=== PATIENT | male | born 1955 | race Caucasian/White ===

== ENCOUNTER 2021-12-10 12:51 | Inpatient (IN) | payer OTHER ==
[~2021-12-10] VITALS: Ht 185.4 cm; Wt 68.1 kg
[2021-12-10] MEDS ORDERED: ONDANSETRON 4 MG/2 ML (SDV) Z0FRAN IV PRN ×2 (13:00→19:00)
[2021-12-10] MEDS ORDERED: CALCIUM CARBONATE 500 MG (TUMS) TAB.CHEW PO PRN (13:00)
[2021-12-10] MEDS ORDERED: ACETAMINOPHEN 325 MG TABLET PO PRN (13:00)
[2021-12-10] MEDS ORDERED: ENOXAPARIN 150 MG/ML (LOVENOX) SYR SQ SCH (13:00)
[2021-12-10] MEDS ORDERED: MELATONIN 3 MG TABLET PO PRN (13:00)
[2021-12-10] MEDS ORDERED: dilTIAZem DRIP PRE-MIX 125 ML IV SCH (13:00)
[2021-12-10 14:49] LABS: HEMOGLOBIN 15.1 g/dL (13.3-17.7); MEAN PLATELET VOLUME 11.8 fL (9.0-12.2); WHITE BLOOD COUNT 8.3 10^3/uL (4.3-11.0)
[2021-12-10 14:58] LABS: POTASSIUM 4.9 MMOL/L (3.6-5.0)
[2021-12-10 14:59] LABS: CALCIUM 9.2 MG/DL (8.5-10.1)
[2021-12-10 15:03] LABS: CREATININE SERUM 0.9 MG/DL (0.60-1.30)
[2021-12-10] MEDS ORDERED: NS IV 500 ML 500 ML IV PRN (15:15)
--- NOTE | 2021-12-10 15:24 | Consultation-Cardiology ---
HPI-Cardiology Cardiology Consultation: Date of Consultation 12/10/21 Date of Admission 12/10/21 Attending Physician Admitting Physician Admitting Physician: Vero William MD Attending Physician: Vero William MD Consulting Physician ZARI BARROW JR, MD HPI: Time Seen by a Provider: 15:19 Chief Complaint: REASON FOR CONSULTATION: Atrial fibrillation and heart failure. I had the pleasure of seeing Oswaldo in the intensive care unit at [facility] in [place], [place] this afternoon. He has no known history of cardiac disease but has not seen a doctor in over 4 years. About 3 weeks ago he started developing shortness of breath and chest tightness. He thought that he might have COVID. He did a COVID test at home that was negative. He has been treating himself with herbal remedies. However, his shortness of breath has progressed and he also started developing chest tightness. This got to the point that he could not go to work. He was also having extreme fatigue. He spoke to a friend in [place] who is a dentist and the dentist prescribed what sounds like was a steroid taper which the patient started a few days ago. However, then he started developing lower extremity edema so he stopped the medication yesterday. He has also had paroxysmal nocturnal dyspnea and orthopnea. This morning he got up to use the bathroom and was so weak that he collapsed on the floor. He was too weak to get up off the floor and was crawling around in his house. He crawled outside to get some fresh air and a short while later went back into his house and called his dentist friend who then called some of his family went to his house and brought him to the emergency room at [facility]. He was found to be in atrial fibrillation with a rapid ventricular rate and probable heart failure. He was treated with intravenous diltiazem as well as intravenous furosemide and then transferred to our facility for further treatment and evaluation. When his ch est tightness was at its worst earlier today, he states it was 10/10. Here in our hospital after receiving the Lasix, his chest discomfort is about 4/10. He denies palpitations. He denies lightheadedness or syncope. Since stopping the unknown medication yesterday, his peripheral edema has started to improve but not completely resolved. He has also had a cough and has been taking Mucinex but cannot really seem to raise any sputum. He drinks 2 rum and Cokes daily but also has a glass of wine in the morning and sometimes will drink beer at work. He smokes 2 marijuana cigarettes daily. He does not smoke regular cigarettes. Because of the heart failure and atrial fibrillation, a cardiology consultation was requested. Certain portions of this document may have been dictated utilizing voice recognition technology. Inherent to this technology, typographical and grammatical errors may exist. As much as I am diligent to identify and correct these mistakes, some errors may remain in the document. Review of Systems-Cardiology Review of Systems Other comments Review of 10 organ systems is as per the history of present illness, otherwise negative. OML-Xilbfp-Hyfhtz Hx Patient Social History Smoking Status: Current Everyday Smoker Alcohol Use?: Yes Substance type: Marijuana Past Medical History PMH As described under Assessment. Family Medical History Family Medical History: He reports that both his father and mother had myocardial infarction's but in their 60s. He has an older brother who has coronary stents. Allergies and Home Medications Allergies Coded Allergies: No Allergy Information Available (Unverified , 12/10/21) Patient Home Medication List Home Medication List Reviewed: Yes Exam Vital Signs Vital Signs Date Time Temp Pulse Resp B/P (MAP) Pulse Ox O2 Delivery O2 Flow Rate FiO2 12/10/21 14:30 73 Physical Exam General: Alert. No acute distress. Well nourished and appears stated age. Eye: Extraocular movements are intact. Conjunctivae are clear. There are no xanthelasma. HENT: Normocephalic. Atraumatic. Carotid pulsations 2/2 without bruits. Neck: Jugular venous pressure does not appear elevated. No thyromegaly appreciated. Respiratory: Lungs have decreased breath sounds at the bases bilaterally with some scattered wheezes. Respirations are non-labored. Breath sounds are equal. Symmetrical chest wall expansion. Cardiovascular: Normal rate. Irregular rhythm. Distant S1/S2. No murmur. No gallop. Point of maximal impulse is not appear displaced. Good pulses equal in all extremities. 1+ bilateral peripheral edema mainly confined to ankles and feet. Gastrointestinal: Soft. Normal bowel sounds. Skin: Skin turgor is normal. There is no pallor. Musculoskeletal: No kyphosis or scoliosis appreciated. Neurologic: Alert and oriented to person, place, time. Cranial nerves 3-12 appear grossly intact. The patient has good motor tone strength in the upper and lower extremities bilaterally. Psychiatric: Cooperative. Appropriate mood & affect. Labs Laboratory Tests Test 12/10/21 14:45 Range/Units White Blood Count 8.3 4.3-11.0 10^3/uL Red Blood Count 4.81 4.30-5.52 10^6/uL Hemoglobin 15.1 13.3-17.7 g/dL Hematocrit 45 40-54 % Mean Corpuscular Volume 94 80-99 fL Mean Corpuscular Hemoglobin 31 25-34 pg Mean Corpuscular Hemoglobin Concent 33 32-36 g/dL Red Cell Distribution Width 15.0 H 10.0-14.5 % Platelet Count 136 130-400 10^3/uL Mean Platelet Volume 11.8 9.0-12.2 fL Percent Immature Platelet Fraction 9.6 H 0.0-7.6 % Sodium Level 131 L 135-145 MMOL/L Potassium Level 4.9 3.6-5.0 MMOL/L Chloride Level 98 98-107 MMOL/L Carbon Dioxide Level 20 L 21-32 MMOL/L Anion Gap 13 5-14 MMOL/L Blood Urea Nitrogen 27 H 7-18 MG/DL Creatinine 0.90 0.60-1.30 MG/DL Estimat Glomerular Filtration Rate 94 BUN/Creatinine Ratio 30 Glucose Level 124 H 70-105 MG/DL Calcium Level 9.2 8.5-10.1 MG/DL Troponin I 0.070 H <0.028 NG/ML Radiology CT angiogram of the chest obtained at [facility] was read out by the radiologist as no pulmonary emboli. Atherosclerotic changes of the aorta and coronary arteries. Mild thoracic aortic aneurysm measuring 4.2 cm. Low-grade centrilobular and paraseptal emphysema. Minimal interstitial pulmonary edema. Moderate to large right and mild left pleural effusions. Cardiomegaly. ECG Impression ECG Comment Electrocardiogram from [facility] at 11: Oh 3 AM showed atrial fibrillation with a rapid ventricular rate at 155 bpm with low voltage in the limb leads, possible old anterior infarct and anterolateral ST-T wave changes concerning for ischemia. Diagnosis/Problems Diagnosis/Problems (1) Acute congestive heart failure Status: Acute Assessment & Plan: He has an elevated BNP level as well as bilateral pleural effusions and evidence of pulmonary edema on his chest CT from the outside facility. He also has symptoms compatible with heart failure. His ejection fraction is unknown. He has already received 1 dose of intravenous furosemide at the outside facility. I will start him on intravenous furosemide 40 mg twice daily. We will need to watch his renal function closely. For now, I will start him on metoprolol tartrate to help control his heart rate. I will plan on an echocardiogram first thing Sunday morning. There is no urgent need to do this on the weekend. If he tolerates metoprolol, I will consider starting him on DON inhibitor within the next 24-48 hours. (2) Paroxysmal atrial fibrillation Assessment & Plan: He has atrial fibrillation of unknown duration. His heart rate improved with diltiazem. I will start him on oral beta-mike and we will attempt to titrate off the intravenous diltiazem. I have ordered for him to continue on enoxaparin 1 mg/kg every 12 hours. I would like to hold off on starting oral anticoagulation until we determine whether or not he might need a cardiac catheterization. (3) Troponin level elevated Assessment & Plan: His troponin was slightly elevated at the outside facility and is also minimally elevated here. Unclear whether or not he may be suffering a type II non-ST elevation myocardial infarction due to the atrial fibrillation with a rapid ventricular rate. I have ordered another troponin level for 1799. I recommend we trend the troponins until they start declining. If he has a significant jump in his troponin, we may need to consider cardiac catheterization on the weekend. I will start him on aspirin and I have already ordered beta-mike. His transaminase levels are mildly elevated. I will hold off on starting statin medication until we see that the transaminase levels are improving. I have added a lipid panel to his admission labs. (4) Abnormal electrocardiogram Assessment & Plan: His electrocardiogram shows a possible anterior myocardial infarction of indeterminate age with some lateral T wave changes. We will trend the troponins as above. I have ordered an echocardiogram for Sunday. He will eventually need an ischemic evaluation, either a stress test or cardiac catheterization. (5) Thoracic aortic aneurysm without rupture Assessment & Plan: His chest CT from the outside facility showed a mild thoracic aortic aneurysm. This will need to be followed longitudinally. (6) Emphysema lung Assessment & Plan: His chest CT from the outside facility shows mild emphysema. This may be explaining at least some of his shortness of breath. The hospitalist will be managing this condition. He needs to be encouraged to quit smoking. (7) Alcohol dependence Assessment & Plan: From his description, he has anywhere from 2-4 alcoholic drinks per day. He denies any previous history of withdrawal symptoms. He will need to be watched closely for any signs of withdrawal. (8) Marijuana smoker Assessment & Plan: She needs to be encouraged to quit smoking. ZARI BARROW JR, MD Dec 10, 2021 15:24
[2021-12-10] MEDS ORDERED: meTOprolol TARTRATE 25 MG (LOPRESSOR) TABLET PO NR (15:30)
[2021-12-10] MEDS ORDERED: ENOXAPARIN 80 MG/0.8 ML (LOVENOX) SYR SC SCH (15:30)
[2021-12-10 15:51] LABS: TRIGLYCERIDES 73 MG/DL (<150); VLDL CHOLESTEROL 15 MG/DL (5-40)
[2021-12-10 15:56] LABS: CHOLESTEROL 152 MG/DL (< 200)
[2021-12-10 15:57] LABS: HDL CHOLESTEROL 45 MG/DL (40-60)
--- NOTE | 2021-12-10 16:06 | Tele-ICU Consult ---
History of Present Illness History of Present Illness Date Seen by Provider: Dec 10, 2021 Time Seen by Provider: 16:01 History of Present Illness 66 yo M with progressive SOB over last 3 weeks. fatigue, chest tightness and increasing leg edema. Went to another hospital and found to be in a fib with RVR. Started on IV Cardizem and IV Laisx Seen by hospice aide who started pt on po metoprol, V rate down to 112, BP 116/89 + EtOH, MJ, PMH CT in past showed mild thoracic aortic aneurysm, also showed COPD Lab CBC Hb 15, Na 131, trop 0.070, will be repeated, CXR shows pulm edema, bilateral pleural effusions, EKG shows possible ant,lat AR of indermitate age, Allergies and Home Medications Allergies Coded Allergies: No Allergy Information Available (Unverified , 12/10/21) Past Medical/Social/Family Hx Patient Social History Smoking Status: Current Everyday Smoker Substance type: Marijuana Alcohol Use?: Yes Review of Systems Constitutional: see HPI EENTM: see HPI Respiratory: see HPI Cardiovascular: see HPI Gastrointestinal: see HPI Genitourinary: see HPI Musculoskeletal: see HPI Skin: see HPI Psychiatric/Neurological: See HPI Focused Exam Height, Weight, BMI Height: '" Weight: lbs. oz. kg; 22.66 BMI Method: Exam Exam Patient acknowledged, consented, and participated in this virtual visit which was conducted using real time audio/video Vital Signs Date Time Temp Pulse Resp B/P (MAP) Pulse Ox O2 Delivery O2 Flow Rate FiO2 12/10/21 15:21 112 116/89 12/10/21 15:10 23 95 Nasal Cannula 3.00 12/10/21 15:00 91 11 133/93 (106) 88 Nasal Cannula 3.00 12/10/21 14:30 75 12 107/91 (96) 94 Nasal Cannula 3.00 12/10/21 14:30 73 12/10/21 14:25 36.7 84 9 104/74 (84) Nasal Cannula 3.00 Height & Weight Height: '" Weight: lbs. oz. kg; 22.66 BMI Method: General Appearance: No Apparent Distress Respiratory: Lungs Clear, Wheezing Cardiovascular: Irregularly Irregular, Tachycardia Gastrointestinal: normal bowel sounds, non tender, soft Extremity: Pedal Edema (+3 pitting) Results Lab Laboratory Tests 12/10/21 14:45 Assessment/Plan Assessment/Plan new onset a fib with V rate 80's, will repeat troponin, follow up by hospice aide WIth Hb 15 and new onset of a fib, would always consider possibility of XU Critical Care: Critically Ill Patient EVAN BUSTAMANTE MD Dec 10, 2021 16:06
[2021-12-10] MEDS: FUROSEMIDE 40 MG/4 ML INJ (LASIX) IVP SCH (16:08)
[2021-12-10 16:39] VITALS: BP 96/81
[2021-12-10] MEDS ORDERED: RT-ALBUTEROL/IPRATROPIUM 3 ML (DUONEB) VIAL INH PRN (17:00)
[2021-12-10] MEDS ORDERED: CHOL10007 PO (18:33)
[2021-12-10] MEDS ORDERED: [UNRECOGNIZED DRUG - OTHER] PO (18:35)
[2021-12-10] MEDS ORDERED: [UNRECOGNIZED DRUG - OTHER] PO (18:36)
[2021-12-10] MEDS ORDERED: SENNA W/DOCUSATE (SENOKOT S) TABLET PO PRN (19:00)
[2021-12-10] MEDS ORDERED: ONDANSETRON 4 MG (ZOFRAN) ORAL DISSOLVE TAB SL PRN (19:00)
[2021-12-10] MEDS ORDERED: LORazepam INJ 2 MG/ML (ATIVAN) VIAL IV PRN (19:00)
[2021-12-10] MEDS ORDERED: ANTACID SUSP 30 ML UDC (MYLANTA) PO PRN (19:00)
[2021-12-10] MEDS ORDERED: LORazepam INJ 2 MG/ML (ATIVAN) VIAL IM/IV PRN (19:00)
[2021-12-10] MEDS ORDERED: D5 1/2 NS 1000 ML IV SOLUTION 1,000 ML IV PRN (19:00)
[2021-12-10] MEDS ORDERED: 1/2 NS IV SOLUTION 1,000 ML IV PRN (19:00)
[2021-12-10] MEDS ORDERED: LORazepam 1 MG (ATIVAN) TAB PO PRN (19:00)
[2021-12-10] MEDS: RT-ALBUTEROL/IPRATROPIUM 3 ML (DUONEB) VIAL INH SCH (19:13)
[2021-12-10] MEDS: guaiFENesin (MUCINEX) 600 MG TAB PO SCH (21:48)
[2021-12-10] MEDS: meTOprolol TARTRATE 25 MG (LOPRESSOR) TABLET PO SCH (21:49)
[2021-12-11] MEDS: ENOXAPARIN 80 MG/0.8 ML (LOVENOX) SYR SC SCH ×2 (00:40→12:31)
[2021-12-11] MEDS: RT-ALBUTEROL/IPRATROPIUM 3 ML (DUONEB) VIAL INH SCH ×4 (02:21→20:58)
[2021-12-11 05:35] LABS: HEMOGLOBIN 13.7 g/dL (13.3-17.7); MEAN PLATELET VOLUME 11.5 fL (9.0-12.2)
[2021-12-11 05:36] LABS: WHITE BLOOD COUNT 8.9 10^3/uL (4.3-11.0)
[2021-12-11 05:54] LABS: ALBUMIN 3.2 GM/DL (3.2-4.5); BILIRUBIN,TOTAL 0.8 MG/DL (0.1-1.0); CALCIUM 8.5 MG/DL (8.5-10.1); CREATININE SERUM 0.86 MG/DL (0.60-1.30); MAGNESIUM 2.1 MG/DL (1.6-2.4); PHOSPHORUS 3.3 MG/DL (2.3-4.7); POTASSIUM 3.7 MMOL/L (3.6-5.0); TOTAL PROTEIN 5.3 GM/DL (6.4-8.2)
[2021-12-11] MEDS: POTASSIUM CL 10MEQ/50ML IVPB 50 ML IV SCH (06:00)
[2021-12-11] MEDS: KCL 20 MEQ TAB (K-DUR) PO SCH (06:00)
[2021-12-11] MEDS: MAGNESIUM 1 GM/100 ML IVPB 100 ML IV SCH (06:00)
[2021-12-11] MEDS: FUROSEMIDE 40 MG/4 ML INJ (LASIX) IVP SCH ×2 (06:31→17:34)
[2021-12-11] MEDS: guaiFENesin (MUCINEX) 600 MG TAB PO SCH (08:35)
[2021-12-11] MEDS: ASPIRIN E.C. 81 MG (ECOTRIN) TAB PO SCH (08:35)
[2021-12-11] MEDS: meTOprolol TARTRATE 25 MG (LOPRESSOR) TABLET PO SCH ×2 (08:35→21:08)
[2021-12-11] MEDS ORDERED: CATHETER FLUSH 10 ML SYR IV PRN (09:30)
[2021-12-11] MEDS ORDERED: meTOprolol TARTRATE 25 MG (LOPRESSOR) TABLET PO NR (09:30)
--- NOTE | 2021-12-11 09:37 | Cardiology Progress Note ---
Progress Note-Cardiology Events since last exam Date Seen by Provider: Dec 11, 2021 Time Seen by Provider: 09:32 Events since last exam I am following him due to atrial fibrillation and heart failure of unknown type. Last night he woke up to urinate and had a panic attack and became very short of breath. He went back to sleep later and was able to lie flat. His breathing has improved. His chest tightness has resolved. He denies palpitations, syncope, or ankle edema. Certain portions of this document may have been dictated utilizing voice recognition technology. Inherent to this technology, typographical and grammatical errors may exist. As much as I am diligent to identify and correct these mistakes, some errors may remain in the document. Vitals Last set of Vitals Signs Vital Signs 12/10/21 12/11/21 12/11/21 16:39 08:00 08:38 Temp 36.2 Pulse 130 Resp 19 Pulse Ox 93 O2 Delivery Nasal Cannula O2 Flow Rate 2.00 FiO2 32 Labs Labs Laboratory Tests 12/10/21 14:45 12/11/21 05:19 Exam Vital Signs Vital Signs Date Time Temp Pulse Resp B/P (MAP) Pulse Ox O2 Delivery O2 Flow Rate FiO2 12/11/21 08:38 36.2 12/11/21 08:00 130 19 93 Nasal Cannula 2.00 12/10/21 16:39 32 Physical Exam General: Alert. No acute distress. He appears older than his stated age. Eye: No xanthelasma. HENT: Normocephalic. Neck: Jugular venous pressure does not appear elevated. Respiratory: Lungs are clear to auscultation. Respirations are non-labored. Breath sounds are equal. Symmetrical chest wall expansion. Cardiovascular: Tachycardia with irregular rhythm. Distant S1/S2. No murmur. No gallop. No edema. Gastrointestinal: Soft. Normal bowel sounds. Skin: Warm. Dry. Neurologic: Alert and oriented to person, place, time. Cranial nerves 3-11 grossly intact. Psychiatric: Cooperative. Appropriate mood & affect. Labs Laboratory Tests Test 12/10/21 14:45 12/10/21 15:42 12/10/21 15:43 12/10/21 18:01 Range/Units White Blood Count 8.3 4.3-11.0 10^3/uL Red Blood Count 4.81 4.30-5.52 10^6/uL Hemoglobin 15.1 13.3-17.7 g/dL Hematocrit 45 40-54 % Mean Corpuscular Volume 94 80-99 fL Mean Corpuscular Hemoglobin 31 25-34 pg Mean Corpuscular Hemoglobin Concent 33 32-36 g/dL Red Cell Distribution Width 15.0 H 10.0-14.5 % Platelet Count 136 130-400 10^3/uL Mean Platelet Volume 11.8 9.0-12.2 fL Percent Immature Platelet Fraction 9.6 H 0.0-7.6 % Sodium Level 131 L 135-145 MMOL/L Potassium Level 4.9 3.6-5.0 MMOL/L Chloride Level 98 98-107 MMOL/L Carbon Dioxide Level 20 L 21-32 MMOL/L Anion Gap 13 5-14 MMOL/L Blood Urea Nitrogen 27 H 7-18 MG/DL Creatinine 0.90 0.60-1.30 MG/DL Estimat Glomerular Filtration Rate 94 BUN/Creatinine Ratio 30 Glucose Level 124 H 70-105 MG/DL Calcium Level 9.2 8.5-10.1 MG/DL Troponin I 0.070 H 0.077 H <0.028 NG/ML Triglycerides Level 73 <150 MG/DL Cholesterol Level 152 < 200 MG/DL LDL Cholesterol Direct 89 1-129 MG/DL VLDL Cholesterol 15 5-40 MG/DL HDL Cholesterol 45 40-60 MG/DL Test 12/11/21 05:19 Range/Units White Blood Count 8.9 4.3-11.0 10^3/uL Red Blood Count 4.33 4.30-5.52 10^6/uL Hemoglobin 13.7 13.3-17.7 g/dL Hematocrit 40 40-54 % Mean Corpuscular Volume 92 80-99 fL Mean Corpuscular Hemoglobin 32 25-34 pg Mean Corpuscular Hemoglobin Concent 34 32-36 g/dL Red Cell Distribution Width 14.6 H 10.0-14.5 % Platelet Count 116 L 130-400 10^3/uL Mean Platelet Volume 11.5 9.0-12.2 fL Percent Immature Platelet Fraction 7.7 H 0.0-7.6 % Sodium Level 133 L 135-145 MMOL/L Potassium Level 3.7 3.6-5.0 MMOL/L Chloride Level 99 98-107 MMOL/L Carbon Dioxide Level 22 21-32 MMOL/L Anion Gap 12 5-14 MMOL/L Blood Urea Nitrogen 26 H 7-18 MG/DL Creatinine 0.86 0.60-1.30 MG/DL Estimat Glomerular Filtration Rate 95 BUN/Creatinine Ratio 30 Glucose Level 84 70-105 MG/DL Calcium Level 8.5 8.5-10.1 MG/DL Corrected Calcium 9.1 8.5-10.1 MG/DL Phosphorus Level 3.3 2.3-4.7 MG/DL Magnesium Level 2.1 1.6-2.4 MG/DL Total Bilirubin 0.8 0.1-1.0 MG/DL Aspartate Amino Transf (AST/SGOT) 63 H 5-34 U/L Alanine Aminotransferase (ALT/SGPT) 79 H 0-55 U/L Alkaline Phosphatase 48 40-136 U/L Total Protein 5.3 L 6.4-8.2 GM/DL Albumin 3.2 3.2-4.5 GM/DL Diagnosis/Problems Diagnosis/Problems (1) Acute congestive heart failure Status: Acute Assessment & Plan: He has an elevated BNP level as well as bilateral pleural effusions and evidence of pulmonary edema on his chest CT from the outside facility. He also has symptoms compatible with heart failure. His ejection fraction is unknown. He is on intravenous furosemide 40 mg twice daily. We will need to watch his renal function closely. I started him on metoprolol tartrate and his intravenous diltiazem was weaned off. He still has tachycardia. I will give him an extra dose of metoprolol this morning. We may need to increase the dose but his blood pressure is somewhat on the low side. I would avoid giving him digoxin. I will plan on an echocardiogram first thing Sunday morning. There is no urgent need to do this on the weekend. If he tolerates metoprolol, I will consider starting him on DON inhibitor within the next 24-48 hours. (2) Troponin level elevated Assessment & Plan: His troponin levels have been elevated but flat. This may be due to a type II non-ST elevation myocardial infarction due to the atrial fibrillation with a rapid ventricular rate. He is receiving therapeutic dosing of enoxaparin. I started him on aspirin and beta-mike. His transaminase levels are mildly elevated. I will hold off on starting statin medication until we see that the transaminase levels are improving. His LDL level is actually below 100. I recommend further evaluation with a cardiac catheterization. I will plan to do this first thing tomorrow morning. There is no urgency to doing this today. (3) Paroxysmal atrial fibrillation Assessment & Plan: He has atrial fibrillation of unknown duration. His heart rates had initially improved with low-dose metoprolol to tartrate but are elevated today. Some of this could be related to withdrawal from alcohol. I will give him an extra dose of metoprolol this morning. I have ordered for him to continue on enoxaparin 1 mg/kg every 12 hours. I would like to hold off on starting oral anticoagulation until after cardiac catheterization. (4) Abnormal electrocardiogram Assessment & Plan: His electrocardiogram shows a possible anterior myocardial infarction of indeterminate age with some lateral T wave changes. As above, I recommend further evaluation with a cardiac catheterization. (5) Thoracic aortic aneurysm without rupture Assessment & Plan: His chest CT from the outside facility showed a mild thoracic aortic aneurysm. This will need to be followed longitudinally. He is now on beta-mike. (6) Emphysema lung Assessment & Plan: His chest CT from the outside facility shows mild emphysema. This may be explaining at least some of his shortness of breath. The hospitalist will be managing this condition. He needs to be encouraged to quit smoking. (7) Alcohol dependence Assessment & Plan: From his description, he has anywhere from 2-4 alcoholic drinks per day. He denies any previous history of withdrawal symptoms. He will need to be watched closely for any signs of withdrawal. As above, he may have some tachycardia related to early withdrawal. (8) Marijuana smoker Assessment & Plan: She needs to be encouraged to quit smoking. ZARI BARROW JR, MD Dec 11, 2021 09:37
--- NOTE | 2021-12-11 10:35 | Diagnostic Imaging Report ---
EXAMINATION: Chest 2 view HISTORY: Pleural effusion COMPARISON: None available. FINDINGS: There are small bilateral pleural effusions. No pneumothorax. No edema or pneumonia. Heart size is normal. IMPRESSION: 1. Small bilateral pleural effusions. Dictated by: Dictated on workstation # [id number]
--- NOTE | 2021-12-11 10:50 | History & Physical ---
GUDELIA ARTIS 12/11/21 1050: History of Present Illness History of Present Illness Reason for visit/HPI CC: Shortness of breath and fatigue HPI: Oswaldo is a 66yo M with a past medical history a mild thoracic aortic aneurysm and COPD. For the past 3 weeks he has been feeling short of breath and fatigued. He has been unable to go into work or complete tasks at home because of these symptoms. At night he is unable to breathe whenever he lays down which gives him anxiety. Denies having fever, chills, and cough. His symptoms progressively worsened and he developed edema of his lower extremities. Yesterday the patient had a fall and had to crawl around his house because he wasn't strong enough to stand back up. He was taken to the [facility] where he was in atrial fibrillation with RVR. A chest X-ray showed pulmonary edema and bilateral pleural effusions. EKG showed a possible anterior/lateral AR of undetermined age. Troponin was elevated at 0.070 and Na was 131. In the ER the patient was placed on oxygen nasal cannula 3L/min and was given IV lasix and IV cardizem. Patient was admitted and transferred to [facility]. Patient was laying in bed awake at the beginning of the interview. Patient says he is feeling much better today. Says he still feels SOB and fatigued, especially when he gets up and moves around. Reports that he has been coughing up plegm. Denies chest pain and palpitations. Date of Admission Dec 10, 2021 at 14:25 I consulted on this patient on 12/11/21 10:46 Attending Physician No,Local Physician Admitting Physician Admitting Physician: Monse Howe MD Attending Physician: Monse Howe MD Consult Allergies and Home Medications Allergies Coded Allergies: No Allergy Information Available (Unverified , 12/10/21) Patient Home Medication List Cholecalciferol (Vitamin D3) (Vitamin D3) 25 Mcg (1000 Unit) Capsule, 200 MCG PO DAILY, (Reported) Entered as Reported by: GARCIA ZHOU on 12/10/211832 Last Action: Edited [Heart Drops] , PO AC, (Reported) Entered as Reported by: GARCIA ZHOU on 12/10/211835 Last Action: New Order [Orega Resp] , 2 TAB AC, (Reported) Entered as Reported by: GARCIA ZHOU on 12/10/211834 Last Action: New Order Past Rlocomr-Nhdjzu-Xwuezl Hx Patient Social History Marrital Status: single Employed/Student: employed Tobacco Use?: No Smoking Status: Never a Smoker Smokeless Tobacco Frequency: Never a User Use of E-Cig and/or Vaping dev: Yes E-Cig or Vaping type used: Marijuana Use of E-Cig and/or Vaping Giles: Current Everyday User Substance use?: Yes Substance type: Marijuana Substance frequency: Daily Alcohol Use?: Yes Alcohol type: Beer (4-8 beers throughout the day), Hard Liquor (At least two rum and cokes a day), Wine (Glass in the morning) Additional alcohol type: wine to work, beer on way home and rum and coke HS Alcohol Frequency: Daily Pt feels they are or have been: No Immunizations Up To Date Hepatitis A: No Hepatitis B: No Current Status Advance Directives: No Communicates: Verbally Primary Language: Mohawk Preferred Spoken Language: Mohawk Is interpretation needed?: No Implanted or Applied Medical D: None Past Medical History COPD Currently Using CPAP: No Currently Using BIPAP: No Aneurysm (thoracic aortic aneurysm) Review of Systems Constitutional: No chills, No dizziness, No fever; weakness EENTM: No hearing loss, No vision loss, No nose congestion, No throat pain Respiratory: cough, dyspnea on exertion, phlegm, short of breath Cardiovascular: No chest pain; edema; No palpitations Gastrointestinal: No abdominal pain, No constipation, No diarrhea, No loss of appetite, No nausea, No vomiting Genitourinary: No dysuria, No frequency Musculoskeletal: No joint pain, No joint swelling, No muscle pain Skin: No change in color, No rash Psychiatric/Neurological: Anxiety; Denies Headache, Denies Numbness Physical Exam Vital Signs Vital Signs - First Documented 12/10/21 12/10/21 12/10/21 12/10/21 14:23 14:25 14:30 16:39 Temp 36.7 Pulse 84 Resp 9 B/P (MAP) 104/74 (84) Pulse Ox 94 O2 Delivery Nasal Cannula O2 Flow Rate 2.00 FiO2 32 Capillary Refill : Height, Weight, BMI Height: '" Weight: lbs. oz. kg; 22.54 BMI Method: General Appearance: No Apparent Distress, Cachetic, Thin HEENT: Pharynx Normal, Moist Mucous Membranes Neck: Full Range of Motion, Normal Inspection, Non Tender, Supple Respiratory: Chest Non Tender, No Accessory Muscle Use, No Respiratory Distress, Wheezing Cardiovascular: No Murmur, Normal Peripheral Pulses (3+ radialis and dorsalis pedis), Irregularly Irregular Gastrointestinal: No Organomegaly, No Pulsatile Mass, Non Tender, Soft Back: Normal Inspection, No Vertebral Tenderness Extremity: Normal Capillary Refill, Normal Range of Motion, Non Tender, No Calf Tenderness, Pedal Edema (1+ pitting edema in left ankle and foot/ 3+ pitting edema in right ankle and foot) Neurologic/Psychiatric: Alert, Oriented x3, Normal Mood/Affect Skin: Normal Color, Warm/Dry Assessment/Plan Assessment and Plan Acute congestive heart failure - multiple etiologies are possible including ischemic heart disease, obstructive sleep apnea, and alcoholic cardiomyopathy - IV furosemide 40mg will be given due to continued pedal edema - PO potassium chloride 40mEq given to prevent hypokalemia from diuresis Paroxysmal atrial fibrillation - IV cardizem was switched to PO metoprolol 25mg BID - enoxaparin 80mg Q12hrs - patient continues to have some elevated HR so will continue to monitor in ICU before sending to medr floor Hyponatremia - Na has improved from yesterday - continue to give sodium chloride 1000ml @ 75mls/hr Q13 Elevated troponin - repeat troponin is elevated but stable from yesterday - Aspirin 81mg 1xD - cardiology plans on taking patient to cardiac catheterization lab tomorrow to assess for ischemic heart disease Alcohol dependence - Lorazepam 1mg PRN is available if patient begins to experience withdrawal symptoms (seizures, hallucinations, or delirium) COPD - Albuterol/Ipratropium 3ml Q6hrs - Guafenisin 600mg BID Thoracic aortic aneurysm -Will need to be monitored as an outpatient Problems: (1) Acute congestive heart failure Status: Acute Assessment & Plan: He has an elevated BNP level as well as bilateral pleural effusions and evidence of pulmonary edema on his chest CT from the outside facility. He also has symptoms compatible with heart failure. His ejection fraction is unknown. He is on intravenous furosemide 40 mg twice daily. We will need to watch his renal function closely. I started him on metoprolol tartrate and his intravenous diltiazem was weaned off. He still has tachycardia. I will give him an extra dose of metoprolol this morning. We may need to increase the dose but his blood pressure is somewhat on the low side. I would avoid giving him digoxin. I will plan on an echocardiogram first thing Sunday morning. There is no urgent need to do this on the weekend. If he tolerates metoprolol, I will consider starting him on DON inhibitor within the next 24-48 hours. (2) Troponin level elevated Assessment & Plan: His troponin levels have been elevated but flat. This may be due to a type II non-ST elevation myocardial infarction due to the atrial fibrillation with a rapid ventricular rate. He is receiving therapeutic dosing of enoxaparin. I started him on aspirin and beta-mike. His transaminase levels are mildly elevated. I will hold off on starting statin medication until we see that the transaminase levels are improving. His LDL level is actually below 100. I recommend further evaluation with a cardiac catheterization. I will plan to do this first thing tomorrow morning. There is no urgency to doing this today. (3) Paroxysmal atrial fibrillation Assessment & Plan: He has atrial fibrillation of unknown duration. His heart rates had initially improved with low-dose metoprolol to tartrate but are elevated today. Some of this could be related to withdrawal from alcohol. I will give him an extra dose of metoprolol this morning. I have ordered for him to continue on enoxaparin 1 mg/kg every 12 hours. I would like to hold off on starting oral anticoagulation until after cardiac catheterization. (4) Abnormal electrocardiogram Assessment & Plan: His electrocardiogram shows a possible anterior myocardial infarction of indeterminate age with some lateral T wave changes. As above, I recommend further evaluation with a cardiac catheterization. (5) Thoracic aortic aneurysm without rupture Assessment & Plan: His chest CT from the outside facility showed a mild thoraci c aortic aneurysm. This will need to be followed longitudinally. He is now on beta-mike. (6) Emphysema lung Assessment & Plan: His chest CT from the outside facility shows mild emphysema. This may be explaining at least some of his shortness of breath. The hospitalist will be managing this condition. He needs to be encouraged to quit smoking. (7) Alcohol dependence Assessment & Plan: From his description, he has anywhere from 2-4 alcoholic drinks per day. He denies any previous history of withdrawal symptoms. He will need to be watched closely for any signs of withdrawal. As above, he may have some tachycardia related to early withdrawal. (8) Marijuana smoker Assessment & Plan: She needs to be encouraged to quit smoking. MONSE HOWE MD 12/11/21 1125: History of Present Illness History of Present Illness Time Seen by a Provider: 10:15 Allergies and Home Medications Allergies Coded Allergies: No Allergy Information Available (Unverified , 12/10/21) Patient Home Medication List Home Medication List Reviewed: Yes Cholecalciferol (Vitamin D3) (Vitamin D3) 25 Mcg (1000 Unit) Capsule, 200 MCG PO DAILY, (Reported) Entered as Reported by: GARCIA ZHOU on 12/10/211832 Last Action: Edited [Heart Drops] , PO AC, (Reported) Entered as Reported by: GARCIA ZHOU on 12/10/211835 Last Action: New Order [Orega Resp] , 2 TAB AC, (Reported) Entered as Reported by: GARCIA ZHOU on 12/10/211834 Last Action: New Order Assessment/Plan Admission Diagnosis Admission Status: Inpatient Order (span 2 midnights) Reason for Inpatient Admission: new onset a fib, chf, need cath and IV diuresis GUDELIA ARTIS Dec 11, 2021 10:50 MONSE HOWE MD Dec 11, 2021 11:25
--- NOTE | 2021-12-11 12:11 | Tele-ICU Progress Note ---
Subjective Date Seen by a Provider: Dec 11, 2021 Time Seen by a Provider: 12:07 Subjective/Events-last exam he is resting comfortably and his HR improved with extradose of BB. now is 102/mt. no dyspnea at rest. Sepsis Event Evaluation Height, Weight, BMI Height: '" Weight: lbs. oz. kg; 22.54 BMI Method: Exam Exam Patient acknowledged, consented, and participated in this virtual visit which was conducted using real time audio/video Vital Signs Date Time Temp Pulse Resp B/P (MAP) Pulse Ox O2 Delivery O2 Flow Rate FiO2 12/11/21 12:00 97 13 102/74 (83) 96 Nasal Cannula 2.00 12/11/21 11:00 126 12 110/73 (85) 92 Nasal Cannula 2.00 12/11/21 10:00 125 17 101/83 (89) 100 Nasal Cannula 2.00 12/11/21 09:00 154 15 112/99 (103) 97 Nasal Cannula 2.00 12/11/21 08:38 36.2 12/11/21 08:05 Nasal Cannula 2.00 12/11/21 08:00 130 19 93 Nasal Cannula 2.00 12/11/21 07:16 95 Nasal Cannula 2.00 12/11/21 07:00 138 22 117/91 (100) 95 Nasal Cannula 2.00 12/11/21 07:00 114 12/11/21 06:00 93 10 130/94 (106) 94 Nasal Cannula 2.00 12/11/21 05:00 114 18 113/101 (105) 89 Nasal Cannula 2.00 12/11/21 04:00 93 Nasal Cannula 2.00 12/11/21 04:00 101 19 121/103 (109) 92 Nasal Cannula 2.00 12/11/21 03:00 96 16 120/86 (97) 95 Nasal Cannula 2.00 12/11/21 02:21 93 Nasal Cannula 2.00 12/11/21 02:00 92 11 104/87 (93) 94 Nasal Cannula 2.00 12/11/21 01:00 89 19 96/68 (77) 94 Nasal Cannula 2.00 12/11/21 00:50 81 12/11/21 00:00 94 Nasal Cannula 2.00 12/11/21 00:00 88 27 105/76 (86) 94 Nasal Cannula 2.00 12/10/21 23:00 81 17 89/72 (78) 93 Nasal Cannula 2.00 12/10/21 22:00 84 19 125/116 (119) 97 Nasal Cannula 2.00 12/10/21 21:00 73 19 101/83 (89) 94 Nasal Cannula 2.00 12/10/21 20:00 75 15 102/72 (82) 92 Nasal Cannula 2.00 12/10/21 20:00 Nasal Cannula 2.00 12/10/21 19:14 98 Nasal Cannula 2.00 12/10/21 19:00 73 12/10/21 19:00 79 21 104/76 (85) 99 Nasal Cannula 2.00 12/10/21 18:50 Nasal Cannula 2.00 12/10/21 18:00 78 21 116/104 (108) 99 Nasal Cannula 4.00 12/10/21 17:01 98 20 112/99 (103) 90 Nasal Cannula 3.00 12/10/21 16:39 85 93 32 12/10/21 16:10 85 18 96/81 (86) 93 Nasal Cannula 3.00 12/10/21 16:00 85 12 88/72 (77) 91 Nasal Cannula 3.00 12/10/21 16:00 Nasal Cannula 2.00 12/10/21 15:21 112 116/89 12/10/21 15:10 23 95 Nasal Cannula 3.00 12/10/21 15:00 91 11 133/93 (106) 88 Nasal Cannula 3.00 12/10/21 14:30 75 12 107/91 (96) 94 Nasal Cannula 3.00 12/10/21 14:30 73 12/10/21 14:25 36.7 84 9 104/74 (84) Nasal Cannula 3.00 12/10/21 14:23 Nasal Cannula 2.00 I & O 12/11/21 07:00 Intake Total 560 ml Output Total 2475 ml Balance -1915 ml Height & Weight Height: '" Weight: lbs. oz. kg; 22.54 BMI Method: General Appearance: No Apparent Distress Respiratory: Lungs Clear, Wheezing Cardiovascular: Irregularly Irregular, Tachycardia Gastrointestinal: normal bowel sounds, non tender, soft Extremity: Pedal Edema (+3 pitting) Results Lab Laboratory Tests 12/10/21 14:45 12/11/21 05:19 Assessment/Plan Assessment/Plan 1. Paroxysmal afib now rate controlled. 2.chf responding to iv lasix, cardiology following. 3.copd stable. 4. alcohol and nicotine abuse Plan. continue BB per cardiology and wean diltiazem Echo tomorrow. anticoagulation per cardiolgy Critical Care: Critically Ill Patient Time spent with patient (mins): 15 MELISSA CHAO MD Dec 11, 2021 12:11
[2021-12-11] MEDS ORDERED: dilTIAZem DRIP PRE-MIX 125 ML IV ONE (17:46)
[2021-12-11] MEDS: dilTIAZem DRIP PRE-MIX 125 ML IV SCH (17:49)
[2021-12-12] MEDS: ENOXAPARIN 80 MG/0.8 ML (LOVENOX) SYR SC SCH ×3 (00:19→20:44)
[2021-12-12] MEDS: RT-ALBUTEROL/IPRATROPIUM 3 ML (DUONEB) VIAL INH SCH ×4 (02:35→20:57)
[2021-12-12 05:13] VITALS: BP 110/79
[2021-12-12] MEDS: dilTIAZem DRIP PRE-MIX 125 ML IV SCH (05:13)
[2021-12-12 05:39] LABS: HEMOGLOBIN 13.8 g/dL (13.3-17.7); MEAN PLATELET VOLUME 11.5 fL (9.0-12.2); WHITE BLOOD COUNT 8.3 10^3/uL (4.3-11.0)
[2021-12-12 05:52] LABS: CALCIUM 8.1 MG/DL (8.5-10.1); CREATININE SERUM 0.7 MG/DL (0.60-1.30); MAGNESIUM 1.8 MG/DL (1.6-2.4); PHOSPHORUS 2.9 MG/DL (2.3-4.7); POTASSIUM 3.1 MMOL/L (3.6-5.0)
[2021-12-12] MEDS: KCL 20 MEQ TAB (K-DUR) PO SCH ×3 (06:00→08:16)
[2021-12-12] MEDS: MAGNESIUM 1 GM/100 ML IVPB 100 ML IV SCH (06:00)
[2021-12-12] MEDS: POTASSIUM CL 10MEQ/50ML IVPB 50 ML IV SCH (06:00)
[2021-12-12] MEDS: FUROSEMIDE 40 MG/4 ML INJ (LASIX) IVP SCH ×2 (06:19→16:36)
[2021-12-12] MEDS ORDERED: NS IV 1000 ML 1,000 ML IV ONE ×2 (07:00→09:30)
[2021-12-12] MEDS: guaiFENesin (MUCINEX) 600 MG TAB PO SCH ×2 (08:09→20:44)
--- NOTE | 2021-12-12 09:20 | Cardiology Progress Note ---
Progress Note-Cardiology Events since last exam Date Seen by Provider: Dec 12, 2021 Time Seen by Provider: 09:18 Events since last exam I am following him due to probable NSTEMI and heart failure with reduced eje ction fraction due to newly diagnosed cardiomyopathy in addition to newly diagnosed atrial fibrillation. His echocardiogram from this morning shows an ejection fraction of 25%. Had a discussion with the patient and his sister about treatment strategies. His breathing has improved. His chest tightness has resolved. He denies palpitations, syncope, or ankle edema. Certain portions of this document may have been dictated utilizing voice recognition technology. Inherent to this technology, typographical and grammatical errors may exist. As much as I am diligent to identify and correct these mistakes, some errors may remain in the document. Vitals Last set of Vitals Signs Vital Signs 12/10/21 12/11/21 12/12/21 16:39 15:45 14:30 Temp 36.6 Pulse 98 Resp 16 B/P (MAP) 124/104 (111) FiO2 32 Labs Labs Laboratory Tests 12/12/21 05:15 Exam Vital Signs Vital Signs Date Time Temp Pulse Resp B/P (MAP) Pulse Ox O2 Delivery O2 Flow Rate FiO2 12/12/21 15:31 95 Nasal Cannula 2.00 12/12/21 14:30 98 16 124/104 (111) 12/11/21 15:45 36.6 12/10/21 16:39 32 Physical Exam General: Alert. No acute distress. Eye: No xanthelasma. HENT: Normocephalic. Neck: Jugular venous pressure does not appear elevated. Respiratory: Lungs are clear to auscultation. Respirations are non-labored. Breath sounds are equal. Symmetrical chest wall expansion. Cardiovascular: Normal rate. Regular rhythm. No murmur. No gallop. No edema. Gastrointestinal: Soft. Normal bowel sounds. Skin: Warm. Dry. Neurologic: Alert and oriented to person, place, time. Cranial nerves 3-11 grossly intact. Psychiatric: Cooperative. Appropriate mood & affect. Labs Laboratory Tests Test 12/12/21 05:15 Range/Units White Blood Count 8.3 4.3-11.0 10^3/uL Red Blood Count 4.39 4.30-5.52 10^6/uL Hemoglobin 13.8 13.3-17.7 g/dL Hematocrit 40 40-54 % Mean Corpuscular Volume 92 80-99 fL Mean Corpuscular Hemoglobin 31 25-34 pg Mean Corpuscular Hemoglobin Concent 34 32-36 g/dL Red Cell Distribution Width 14.4 10.0-14.5 % Platelet Count 117 L 130-400 10^3/uL Mean Platelet Volume 11.5 9.0-12.2 fL Percent Immature Platelet Fraction 6.6 0.0-7.6 % Sodium Level 136 135-145 MMOL/L Potassium Level 3.1 L 3.6-5.0 MMOL/L Chloride Level 100 98-107 MMOL/L Carbon Dioxide Level 24 21-32 MMOL/L Anion Gap 12 5-14 MMOL/L Blood Urea Nitrogen 21 H 7-18 MG/DL Creatinine 0.70 0.60-1.30 MG/DL Estimat Glomerular Filtration Rate 102 BUN/Creatinine Ratio 30 Glucose Level 89 70-105 MG/DL Calcium Level 8.1 L 8.5-10.1 MG/DL Phosphorus Level 2.9 2.3-4.7 MG/DL Magnesium Level 1.8 1.6-2.4 MG/DL Radiology CARDIAC CATHETERIZATION AND ATTEMPTED PERCUTANEOUS CORONARY INTERVENTION (1 ): 1. Normal left heart pressures. 2. Severe single-vessel coronary artery disease involving the left circumflex system as outlined above. This was most likely the ischemia related vessel for the acute myocardial infarction. 3. The patient has severe left ventricular systolic dysfunction with an estimated ejection fraction of 25-30% by echocardiogram performed earlier today. 4. These findings are consistent with nonischemic dilated cardiomyopathy. 5. I will plan to bring the patient back for a staged percutaneous revascularization of the left circumflex coronary artery with the assistance of anesthesia in the near future. Percutaneous coronary intervention had been attempted but the patient was moving around on the table which could put the patient at risk for complications and therefore, the intervention was aborted. ECHOCARDIOGRAM (12/12/2021): 1. Left ventricle: The left ventricle is moderately dilated. There is mild concentric hypertrophy. Systolic function is severely reduced. The estimated ejection fraction is 25-30%. Severe diffuse h ypokinesis. The left ventricular diastolic function is indeterminate due to atrial fibrillation. 2. Right ventricle: The right ventricle is moderately dilated with a diameter of 4 cm in the parasternal long axis view. Systolic function is normal. TAPSE 2.1 cm. 3. Left atrium: The left atrium is severely dilated with a volume index of 48 mL/m. 4. Right atrium: The right atrium is severely dilated with an area of 37 cm. 5. Aortic valve: There is mild aortic regurgitation with a pressure half-time of 616 ms. 6. Mitral valve: There is moderate mitral regurgitation. 7. Tricuspid valve: There is moderate tricuspid regurgitation. 8. Aortic root: The aortic root is mildly dilated with a diameter of 4 cm. 9. Pulmonary arteries: The estimated pulmonary artery systolic pressure is 38 mmHg assuming a right atrial pressure of 5 mmHg. 10. Pericardium, extracardiac: There is a right pleural effusion and a left pleural effusion. 11. No previous study is available for comparison. Diagnosis/Problems Diagnosis/Problems (1) Acute HFrEF (heart failure with reduced ejection fraction) Assessment & Plan: This appears to be due to nonischemic cardiomyopathy. He is on metoprolol succinate. I will start him on low-dose lisinopril and obtain a follow-up chest x-ray in the morning. I suspect we can change his intravenous furosemide over to oral in the near future. (2) Non-ST elevation myocardial infarction (NSTEMI), initial care episode Assessment & Plan: This appears to have been due to significant stenosis in the left circumflex system. He will ultimately need a stent placed that due to him being uncooperative during the cardiac catheterization, I had to abort the procedure for his own safety. I have started him on clopidogrel. He was already on aspirin. His transaminase levels remain slightly elevated which may be due to his history of alcohol use. I will hold off on giving him a statin until these levels stabilize (3) Cardiomyopathy Assessment & Plan: He has single-vessel disease would suggest that he does not have ischemic cardiomyopathy. 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 I will slowly start him on the appropriate guideline directed medical therapy. In light of the myocardial infarction coupled with severe cardiomyopathy, we may also want to consider a LifeVest prior to discharge. However, he does have compliance issues and I am not sure he will agree to this but I will offer him the device. (4) Mitral regurgitation Assessment & Plan: His echocardiogram showed moderate mitral regurgitation. This may be functional regurgitation related to the left ventricular dilatation and may improve as we treat his cardiomyopathy. This condition will need to follow-up followed longitudinally. There is no indication for mitral valve intervention at this time. (5) Paroxysmal atrial fibrillation Assessment & Plan: He has atrial fibrillation of unknown duration. His heart rates had initially improved but became elevated on 12/11 and diltiazem had to b e restarted. Some of the tachycardia could be related to withdrawal from alcohol. I will titrate up metoprolol as tolerated by his blood pressure. I have ordered for him to continue on enoxaparin 1 mg/kg every 12 hours. I would like to hold off on starting oral anticoagulation until after his percutaneous coronary intervention. (6) Thoracic aortic aneurysm without rupture Assessment & Plan: His chest CT from the outside facility showed a mild thora cic aortic aneurysm and his echocardiogram from 12/12 also showed mild dilatation of the aortic root. This will need to be followed longitudinally. He is now on beta-mike. (7) Coronary artery disease with unstable angina pectoris Assessment & Plan: As above. (8) Emphysema lung Assessment & Plan: His chest CT from the outside facility shows mild emphysema. This may be explaining at least some of his shortness of breath. The hospitalist will be managing this condition. He needs to be encouraged to quit smoking. (9) Alcohol dependence Assessment & Plan: From his description, he has anywhere from 2-4 alcoholic drinks per day. He denies any previous history of withdrawal symptoms. He will need to be watched closely for any signs of withdrawal. As above, he may have some tachycardia related to early withdrawal. (10) Marijuana smoker Assessment & Plan: She needs to be encouraged to quit smoking. ZARI BARROW JR, MD Dec 12, 2021 09:20
[2021-12-12] MEDS: ASPIRIN E.C. 81 MG (ECOTRIN) TAB PO SCH (09:41)
[2021-12-12] MEDS ORDERED: [UNRECOGNIZED DRUG - OTHER] PO (09:49)
[2021-12-12] MEDS ORDERED: CHOL20002 PO (09:49)
[2021-12-12] MEDS: meTOprolol TARTRATE 25 MG (LOPRESSOR) TABLET PO SCH (09:54)
[2021-12-12] MEDS ORDERED: VERAPAMIL 5 MG/2 ML (CALAN) VIAL IV ONE (10:50)
[2021-12-12] MEDS ORDERED: NITRO DRIP 25000 MCG/D5W 250 ML IV ONE (10:51)
[2021-12-12] MEDS ORDERED: HEParin 1000 UNIT/ML (10ML VIAL) FOR BOLUS ONE (10:51)
[2021-12-12] MEDS ORDERED: MIDAZOLAM 5 MG/5 ML (VERSED) VIAL ONE (10:51)
[2021-12-12] MEDS ORDERED: fentaNYL INJ 100 MCG/2 ML AMP ONE (10:51)
[2021-12-12] MEDS ORDERED: LIDOCAINE 1% INJ 30 ML (XYLOCAINE) VIAL ONE (11:12)
[2021-12-12] MEDS ORDERED: HEParin (CATH LAB) 2,000 ML IV ONE (11:13)
--- NOTE | 2021-12-12 11:58 | Tele-ICU Progress Note ---
Subjective Date Seen by a Provider: Dec 12, 2021 Time Seen by a Provider: 11:57 Subjective/Events-last exam (Tele-ICU Physician , Progress Note ) Available chart/ vitals / labs / Images reviewed Video assessment done using teleICU camera, rest of exam as per RN Discussed with RN Events overnight : Afebrile hemodynamically stable A/P 1. Paroxysmal afib now rate controlled. 2.chf responding to iv lasix, cardiology following. 3.copd stable. 4. alcohol and nicotine abuse Plan. Echo / cath - as per cads anticoagulation per cardiolgy CIWA in place , add thiamine/ folate Lines : no , (Central Line Necessity Reviewed) Noe: void OG: Nutrition: Analgesia: Anxiety/ delirium VTE Prophylaxis: lovenox Stress Ulcer Prophylaxis: Plans in collaboration with bedside consultants and IM MDs. Discussed with RN to reach out if any questions or concerns A total of 15 minutes of critical care time was devoted to this patient today, required to treat and/or prevent further deterioration of critical care condition ( as above ) . I am remotely monitoring this patient from another state. I am unable to do the bedside exam, and history/physical and pertinent information is taken from other notes in the computer and bedside staff. I cannot take responsibility for the accuracy of this information. Sepsis Event Evaluation Height, Weight, BMI Height: '" Weight: lbs. oz. kg; 21.35 BMI Method: Exam Exam Patient acknowledged, consented, and participated in this virtual visit which was conducted using real time audio/video Vital Signs Date Time Temp Pulse Resp B/P (MAP) Pulse Ox O2 Delivery O2 Flow Rate FiO2 12/12/21 10:00 96 14 130/84 (99) 95 Nasal Cannula 2.00 12/12/21 09:53 93 Nasal Cannula 2.00 12/12/21 09:00 83 19 115/79 (91) 90 Nasal Cannula 2.00 12/12/21 08:00 114 19 104/70 (81) 94 Nasal Cannula 2.00 12/12/21 08:00 95 Nasal Cannula 2.00 12/12/21 07:49 73 12/12/21 07:34 73 12/12/21 07:00 75 13 115/86 (96) 89 Nasal Cannula 2.00 12/12/21 06:00 82 13 113/84 (97) 94 Nasal Cannula 2.00 12/12/21 05:30 75 16 115/82 (87) 92 Nasal Cannula 2.00 12/12/21 05:13 86 110/79 12/12/21 05:00 81 35 110/89 (97) 89 Nasal Cannula 1.00 12/12/21 04:00 94 Nasal Cannula 2.00 12/12/21 04:00 95 14 107/77 (87) Nasal Cannula 1.00 12/12/21 03:00 71 11 93/63 (78) 91 Nasal Cannula 1.00 12/12/21 02:36 92 Nasal Cannula 1.00 12/12/21 02:15 64 12 101/77 (85) 92 Nasal Cannula 1.00 12/12/21 01:00 85 12/12/21 01:00 85 9 98/80 (89) 95 Nasal Cannula 1.00 12/12/21 00:00 75 22 117/81 (91) 90 Nasal Cannula 1.00 12/12/21 00:00 93 Nasal Cannula 2.00 12/11/21 23:00 65 12 101/67 (72) Nasal Cannula 1.00 12/11/21 22:00 96 11 115/93 (100) Nasal Cannula 1.00 12/11/21 21:15 98 12 96/80 (88) 93 Nasal Cannula 1.00 12/11/21 20:58 91 Nasal Cannula 1.00 12/11/21 20:00 94 Nasal Cannula 2.00 12/11/21 20:00 107 15 106/70 (84) 89 Nasal Cannula 1.00 12/11/21 19:15 109 16 139/78 (98) 91 Nasal Cannula 1.00 12/11/21 19:00 110 12/11/21 18:00 141 20 134/93 (107) 93 Nasal Cannula 1.00 12/11/21 17:49 116/98 12/11/21 17:00 144 18 116/98 (104) 93 Nasal Cannula 1.00 12/11/21 16:06 Nasal Cannula 2.00 12/11/21 15:45 36.6 112 21 108/87 (94) 96 Nasal Cannula 1.00 12/11/21 15:19 96 Nasal Cannula 2.00 12/11/21 15:00 120 20 106/94 (98) 98 Nasal Cannula 2.00 12/11/21 14:00 109 24 110/89 (96) 94 Nasal Cannula 2.00 12/11/21 13:00 123 12 106/92 (97) 98 Nasal Cannula 2.00 12/11/21 12:41 106 12/11/21 12:35 93 Nasal Cannula 2.00 12/11/21 12:00 97 13 102/74 (83) 96 Nasal Cannula 2.00 I & O 12/12/21 07:00 Intake Total 2025 ml Output Total 5825 ml Balance -3800 ml Height & Weight Height: '" Weight: lbs. oz. kg; 21.35 BMI Method: General Appearance: No Apparent Distress, Cachetic, Thin HEENT: Pharynx Normal, Moist Mucous Membranes Neck: Full Range of Motion, Normal Inspection, Non Tender, Supple Respiratory: Chest Non Tender, No Accessory Muscle Use, No Respiratory Distress, Wheezing Cardiovascular: No Murmur, Normal Peripheral Pulses (3+ radialis and dorsalis pedis), Irregularly Irregular Capillary Refill: Less Than 3 Seconds Gastrointestinal: normal bowel sounds, non tender, soft Extremity: Normal Capillary Refill, Normal Range of Motion, Non Tender, No Calf Tenderness, Pedal Edema (1+ pitting edema in left ankle and foot/ 3+ pitting edema in right ankle and foot) Neurologic/Psychiatric: Alert, Oriented x3, Normal Mood/Affect Skin: Normal Color, Warm/Dry Results Lab Laboratory Tests 12/10/21 14:45 12/11/21 05:19 12/12/21 05:15 Assessment/Plan Assessment/Plan 1 JOSE CUMMINS MD Dec 12, 2021 11:57
--- NOTE | 2021-12-12 12:13 | Pre-Op Note & Conscious Sedat ---
Pre-Operative Progress Note Date H&P Reviewed: Dec 12, 2021 Time H&P Reviewed: 12:11 History & Physical: H&P Reviewed, Patient Examed, No changes noted Pre-Op Diagnosis: NSTEMI, acute HFrEF, cardiomyopathy Conscious Sedation Pre-Proced ASA Score 2 For ASA 3 and 4: Consider anesthesia and medical clearance. Also, for patients with a history of failed moderate sedation consider anesthesia. Airway Lungs Heart ASA score ASA 1: a normal healthy patient ASA 2: a patient with a mild systemic disease (mid diabetes, controlled hypertension, obesity ASA 3: a patient with a severe systemic disease that limits activity (angina, COPD, prior Myocardial infarction) ASA 4: a patient with an incapacitating disease that is a constant threat to life (CHF, renal failure) ASA 5: a moribund patient not expected to survive 24 hrs. (ruptured aneurysm) ASA 6: a declared brain- patient whose organs are being harvested. For emergent operations, add the letter E after the classification Mallampati Classification Grade 2 Sedation Plan Analgesia, Amnesia, Plan communicated to team members, Discussed options with patient/fam, Discussed risks with patient/fam The patient is an appropriate candidate to undergo the planned procedure, sedation, and anesthesia. The patient immediately re-assessed prior to indication. Given his current clinical status, he is considered severly frail. He has acute class IV systolic heart failure. ZARI BARROW JR, MD Dec 12, 2021 12:13
[2021-12-12] MEDS ORDERED: CLOPIDOGREL 300 MG (PLAVIX) TABLET PO ONE (12:49)
[2021-12-12] MEDS ORDERED: ENOXAPARIN 100 MG/1 ML (LOVENOX) SYR ONE (12:50)
--- NOTE | 2021-12-12 13:05 | Cardiac Cath Report ---
CARDIAC CATHETERIZATION DATE OF PROCEDURE: 12/12/2021 INDICATION: Non-ST elevation myocardial infarction, acute heart failure with reduced ejection fraction and cardiomyopathy. HISTORY: The patient is a 66 year old male with no previously known history of coronary artery disease who presented to the hospital with 3-month history of dyspnea and chest tightness that worsened over several days prior to admission. During his evaluation, he was found to have elevated troponin levels consistent with a non-ST elevation myocardial infarction as well as acute heart failure now known to be with reduced ejection fraction. Because of these findings, he is now referred for further evaluation with a cardiac catheterization. Given his current clinical status, he is considered moderately frail. He has class IV acute heart failure with reduced ejection fraction. PROCEDURES PERFORMED: 1. Left heart catheterization with hemodynamic measurements. 2. Diagnostic [place] coronary angiography. 3. Status post brief attempt at percutaneous coronary intervention of left circumflex coronary artery but the procedure was aborted due to uncooperative patient moving on the table. A coronary guidewire was passed into the left main coronary artery but due to patient movement, I felt it was not safe to continue with the intervention. PROCEDURE DESCRIPTION: After informed consent and in the fasting state, left heart catheterization was performed through the right radial artery utilizing a 6 Georgian system by percutaneous approach. Standard 5 Georgian Tod catheters were utilized for the diagnostic portion of the procedure. A 6 Georgian CLS 4 guide catheter was utilized for the attempted intervention on the left circumflex coronary artery. All catheters were exchanged over a guidewire. Following the procedure, a vascular band was applied to the radial artery access site and the sheath was removed with good hemostasis. RESULTS: HEMODYNAMICS: The aortic pressure was 91/57 mmHg. The left ventricular pressure was 94/0 mmHg with a left ventricular end-diastolic pressure of 7 mmHg. There was no significant pressure gradient upon pullback across aortic valve. CORONARY ANGIOGRAPHY: Left main coronary artery: Free of significant disease. Left anterior descending coronary artery: Free of significant disease. Left circumflex coronary artery: This was essentially a large first obtuse marginal branch which contained 90% stenosis in the proximal segment with VENTURA II flow. Intracoronary nitroglycerin was administered and the stenosis was unchanged, indicative of a true stenosis as opposed to coronary spasm. This was most likely the ischemia related vessel for the non-ST elevation myocardial infarction. Right coronary artery: Dominant and free of significant disease. There were collaterals seen filling one of the left coronary branches but the exact branch could not be determined. The right ventricular branch actually had its own ostium and was free of significant disease. ATTEMPTED PERCUTANEOUS CORONARY INTERVENTION: Percutaneous coronary intervention was attempted on the left circumflex coronary artery through a 6 [place]ian CLS 4 guide catheter. I was attempting to cross the stenosis with a [place] guidewire but the patient was continually moving on the table and this was dislodging the equipment. Despite asking him to lay still, he continued to move about on the table. At that point, I decided that it was safest to abort the attempt at intervention and bring him back for a staged procedure with the assistance of anesthesia who can provide deeper sedation. IMPRESSION: 1. Normal left heart pressures. 2. Severe single-vessel coronary artery disease involving the left circumflex system as outlined above. This was most likely the ischemia related vessel for the acute myocardial infarction. 3. The patient has severe left ventricular systolic dysfunction with an estimated ejection fraction of 25-30% by echocardiogram performed earlier today. 4. These findings are consistent with nonischemic dilated cardiomyopathy. 5. I will plan to bring the patient back for a staged percutaneous revascularization of the left circumflex coronary artery with the assistance of anesthesia in the near future. Certain portions of this document may have been dictated utilizing voice recogni tion technology. Inherent to this technology, typographical and grammatical errors may exist. As much as I am diligent to identify and correct these mistakes, some errors may remain in the document. ZARI BARROW JR, MD Dec 12, 2021 13:05
[2021-12-12] MEDS ORDERED: CLOPIDOGREL 300 MG (PLAVIX) TABLET PO NR (13:30)
[2021-12-12] MEDS: NS IV 1000 ML 1,000 ML IV SCH (13:59)
[2021-12-12] MEDS: FOLIC ACID 1 MG TAB PO SCH (14:20)
[2021-12-12] MEDS: THIAMINE 100 MG (VITAMIN B-1) TAB PO SCH (14:20)
[2021-12-12] MEDS ORDERED: lisINopril 5 MG (PRINIVIL) TABLET PO NR (16:30)
--- NOTE | 2021-12-12 18:39 | Progress Note - Hospitalist ---
Subjective HPI/CC On Admission Date Seen by Provider: Dec 12, 2021 Time Seen by Provider: 09:50 Subjective/Events-last exam He is sitting in bed. He is feeling much better. He denies chest pain. He denies shortness of breath. Objective Exam Vital Signs Vital Signs Date Time Temp Pulse Resp B/P (MAP) Pulse Ox O2 Delivery O2 Flow Rate FiO2 12/12/21 18:00 112 13 116/107 (110) 94 Nasal Cannula 2.00 12/11/21 15:45 36.6 12/10/21 16:39 32 Capillary Refill : Less Than 3 Seconds General Appearance: No Apparent Distress, WD/WN Respiratory: No Respiratory Distress, Decreased Breath Sounds, Wheezing Cardiovascular: No Murmur, Irregularly Irregular, Tachycardia Gastrointestinal: Normal Bowel Sounds, Non Tender, Soft Extremity: Normal Inspection, No Pedal Edema Neurologic/Psychiatric: Alert, Normal Mood/Affect Skin: Normal Color, Warm/Dry Results/Procedures Lab Laboratory Tests 12/12/21 05:15 Patient resulted labs reviewed. Assessment/Plan Assessment and Plan Assess & Plan/Chief Complaint AFib with RVR NSTEMI Acute HFrEF Thoracic aortic aneurysm Cardiology following Remains on IV diltiazem Therapeutic Lovenox ASA and Plavix Left heart cath today with left circumflex lesion Planning for return for staged PCI Will likely require LifeVest with reduced EF SW consulted Hypokalemia Monitor and correct as needed Alcohol dependence Monitoring for withdrawal COPD MAT protocol Supplemental oxygen as needed Marijuana abuse Recommend cessation DVT prophylaxis: already receiving therapeutic anticoagulation Critical Care Critically Ill Patient Diagnosis/Problems Diagnosis/Problems (1) Atrial fibrillation with RVR Status: Acute (2) Acute HFrEF (heart failure with reduced ejection fraction) Status: Acute (3) NSTEMI (non-ST elevation myocardial infarction) Status: Acute (4) Hypokalemia Status: Acute (5) Alcohol abuse Status: Chronic (6) COPD (chronic obstructive pulmonary disease) Status: Chronic (7) Thoracic aortic aneurysm (TAA) Status: Acute Qualifiers: Presence of rupture: without rupture Qualified Codes: I71.2 - Thoracic aortic aneurysm, without rupture (8) Marijuana abuse Status: Chronic HAY YOST MD Dec 12, 2021 18:39
[2021-12-13] MEDS: NS IV 1000 ML 1,000 ML IV SCH ×3 (02:05→19:25)
[2021-12-13] MEDS: RT-ALBUTEROL/IPRATROPIUM 3 ML (DUONEB) VIAL INH SCH ×4 (02:39→21:28)
[2021-12-13 05:16] LABS: HEMOGLOBIN 16.4 g/dL (13.3-17.7); MEAN PLATELET VOLUME 11.1 fL (9.0-12.2); WHITE BLOOD COUNT 6.8 10^3/uL (4.3-11.0)
[2021-12-13 05:32] LABS: CALCIUM 8.8 MG/DL (8.5-10.1); CREATININE SERUM 0.7 MG/DL (0.60-1.30); MAGNESIUM 1.9 MG/DL (1.6-2.4); PHOSPHORUS 2.8 MG/DL (2.3-4.7); POTASSIUM 3.6 MMOL/L (3.6-5.0)
[2021-12-13] MEDS: KCL 20 MEQ TAB (K-DUR) PO SCH (06:04)
[2021-12-13] MEDS: POTASSIUM CL 10MEQ/50ML IVPB 50 ML IV SCH (06:04)
[2021-12-13] MEDS: MAGNESIUM 1 GM/100 ML IVPB 100 ML IV SCH (06:04)
[2021-12-13] MEDS: THIAMINE 100 MG (VITAMIN B-1) TAB PO SCH (06:26)
[2021-12-13] MEDS: FUROSEMIDE 40 MG/4 ML INJ (LASIX) IVP SCH (06:27)
[2021-12-13] MEDS ORDERED: NITROGLYCERIN 0.4 MG SL TABS BTL 25'S SL PRN (06:45)
[2021-12-13] MEDS ORDERED: KCL 20 MEQ TAB (K-DUR) PO ONE (07:00)
[2021-12-13] MEDS: ENOXAPARIN 80 MG/0.8 ML (LOVENOX) SYR SC SCH ×2 (08:21→20:10)
[2021-12-13] MEDS: lisINopril 5 MG (PRINIVIL) TABLET PO SCH (08:22)
[2021-12-13] MEDS: FOLIC ACID 1 MG TAB PO SCH (08:22)
[2021-12-13] MEDS: ASPIRIN E.C. 81 MG (ECOTRIN) TAB PO SCH (08:22)
[2021-12-13] MEDS: CLOPIDOGREL 75 MG (PLAVIX) TABLET PO SCH (08:22)
[2021-12-13] MEDS: guaiFENesin (MUCINEX) 600 MG TAB PO SCH ×2 (08:23→20:57)
[2021-12-13] MEDS ORDERED: DIGOXIN 0.25 MG/ML (LANOXIN) 2 ML AMP IV NR (09:00)
--- NOTE | 2021-12-13 09:17 | Cardiology Progress Note ---
Progress Note-Cardiology Events since last exam Date Seen by Provider: Dec 13, 2021 Time Seen by Provider: 09:14 Events since last exam I am following him due to NSTEMI, acute heart failure with reduced ejection fraction and nonischemic cardiomyopathy. He has a significant stenosis of the left circumflex coronary artery which I plan to perform bare-metal stent placement but this will need to be done with anesthesia. Early this morning he had recurrent chest discomfort. He was also having tachycardia at the time. He was given his oral metoprolol succinate early and his heart rate improved and his chest tightness also improved. His breathing is improved. He denies palpitations, syncope, or ankle edema. Certain portions of this document may have been dictated utilizing voice recognition technology. Inherent to this technology, typographical and grammatical errors may exist. As much as I am diligent to identify and correct these mistakes, some errors may remain in the document. Vitals Last set of Vitals Signs Vital Signs 12/10/21 12/13/21 12/13/21 16:39 08:00 10:00 Temp 36.5 Pulse 99 Resp 10 B/P (MAP) 126/84 (98) Pulse Ox 93 O2 Delivery Nasal Cannula O2 Flow Rate 2.00 FiO2 32 Labs Labs Laboratory Tests 12/13/21 05:05 Exam Vital Signs Vital Signs Date Time Temp Pulse Resp B/P (MAP) Pulse Ox O2 Delivery O2 Flow Rate FiO2 12/13/21 10:00 99 10 126/84 (98) 93 Nasal Cannula 2.00 12/13/21 08:00 36.5 12/10/21 16:39 32 Physical Exam General: Alert. No acute distress. Eye: No xanthelasma. HENT: Normocephalic. Neck: Jugular venous pressure does not appear elevated. Respiratory: Lungs are clear to auscultation. Respirations are non-labored. Breath sounds are equal. Symmetrical chest wall expansion. Cardiovascular: Tachycardia with irregular rhythm. No murmur. No gallop. No ed adeola. Gastrointestinal: Soft. Normal bowel sounds. Skin: Warm. Dry. Neurologic: Alert and oriented to person, place, time. Cranial nerves 3-11 grossly intact. Psychiatric: Cooperative. Appropriate mood & affect. Labs Laboratory Tests Test 12/13/21 05:05 Range/Units White Blood Count 6.8 4.3-11.0 10^3/uL Red Blood Count 5.18 4.30-5.52 10^6/uL Hemoglobin 16.4 13.3-17.7 g/dL Hematocrit 48 40-54 % Mean Corpuscular Volume 93 80-99 fL Mean Corpuscular Hemoglobin 32 25-34 pg Mean Corpuscular Hemoglobin Concent 34 32-36 g/dL Red Cell Distribution Width 14.7 H 10.0-14.5 % Platelet Count 143 130-400 10^3/uL Mean Platelet Volume 11.1 9.0-12.2 fL Percent Immature Platelet Fraction 6.3 0.0-7.6 % Sodium Level 138 135-145 MMOL/L Potassium Level 3.6 3.6-5.0 MMOL/L Chloride Level 99 98-107 MMOL/L Carbon Dioxide Level 25 21-32 MMOL/L Anion Gap 14 5-14 MMOL/L Blood Urea Nitrogen 13 7-18 MG/DL Creatinine 0.70 0.60-1.30 MG/DL Estimat Glomerular Filtration Rate 102 BUN/Creatinine Ratio 19 Glucose Level 98 70-105 MG/DL Calcium Level 8.8 8.5-10.1 MG/DL Phosphorus Level 2.8 2.3-4.7 MG/DL Magnesium Level 1.9 1.6-2.4 MG/DL Diagnosis/Problems Diagnosis/Problems (1) Acute HFrEF (heart failure with reduced ejection fraction) Status: Acute Assessment & Plan: This appears to be due to nonischemic cardiomyopathy. He is on metoprolol succinate. I started him on low-dose lisinopril on 12/12. I will stop the IV Lasix. (2) Non-ST elevation myocardial infarction (NSTEMI), initial care episode Assessment & Plan: This appears to have been due to significant stenosis in the left circumflex system. He will ultimately need a stent placed but due to him being uncooperative during the diagnostic cardiac catheterization, I had to abort the procedure for his own safety. I have started him on clopidogrel. He was already on aspirin. His transaminase levels remain slightly elevated which may be due to his history of alcohol use. I will hold off on giving him a statin until these levels stabilize. I let him eat a light breakfast which he finished by 9 AM but then anesthesia said they would not provide their assista nce unless he is n.p.o. for 8 hours. I will postpone the stent procedure until 12/14. With that said, this will all depend on how busy the [employer] is on 12/14. I have ordered an anesthesia consult to assist with the procedure. (3) Cardiomyopathy Assessment & Plan: He has single-vessel disease would suggest that he does not have ischemic cardiomyopathy. 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 I will slowly start him on the appropriate guideline directed medical therapy. In light of the myocardial infarction coupled with severe cardiomyopathy, we may also want to consider a LifeVest prior to discharge. I explained the device to him and his sister and he is not opposed. His lack of insurance may be an issue but the company can often help with this. I will go ahead and order the device so that we can get the process started and then the patient can decide whether or not he wants this when he is closer to being ready for discharge. (4) Coronary artery disease with unstable angina pectoris Assessment & Plan: As above. (5) Paroxysmal atrial fibrillation Assessment & Plan: He has atrial fibrillation of unknown duration. His heart rates had initially improved but became elevated on 12/11 and diltiazem had to be restarted. Some of the tachycardia could be related to withdrawal from alcohol. I will titrate up metoprolol as tolerated by his blood pressure. I have ordered for him to continue on enoxaparin 1 mg/kg every 12 hours. I would like to hold off on starting oral anticoagulation until after his percutaneous coronary intervention. Given the ongoing tachycardia, I will give him 1 dose of intravenous digoxin and start him on a low-dose of oral digoxin. Typically, digoxin is not all that effective at controlling heart rate but given his borderline low blood pressures, I am not sure we can increase his beta-mike without causing symptomatic hypotension. If we cannot get his heart rate under control, then we may need to consider transesophageal echocardiogram followed by cardioversion prior to discharge. (6) Mitral regurgitation Assessment & Plan: His echocardiogram showed moderate mitral regurgitation. This may be functional regurgitation related to the left ventricular dilatation and may improve as we treat his cardiomyopathy. This condition will need to follow-up followed longitudinally. There is no indication for mitral valve intervention at this time. (7) Thoracic aortic aneurysm without rupture Assessment & Plan: His chest CT from the outside facility showed a mild thoracic aortic aneurysm and his echocardiogram from 10/10 also showed mild dilatation of the aortic root. This will need to be followed longitudinally. He is now on beta-mike. (8) Emphysema lung Assessment & Plan: His chest CT from the outside facility shows mild emphysema. This may be explaining at least some of his shortness of breath. The hospitalist will be managing this condition. He needs to be encouraged to quit smoking. (9) Alcohol dependence Assessment & Plan: From his description, he has anywhere from 2-4 alcoholic drinks per day. He denies any previous history of withdrawal symptoms. He will need to be watched closely for any signs of withdrawal. As above, he may have some tachycardia related to early withdrawal. (10) Marijuana smoker Assessment & Plan: She needs to be encouraged to quit smoking. ZARI BARROW JR, MD Dec 13, 2021 09:17
[2021-12-13] MEDS ORDERED: DIGOXIN 0.125 MG (LANOXIN) TAB PO NR (09:30)
[2021-12-13] MEDS: NITROGLYCERIN 2% OINT 1 GM UNIT DOSE PACKET TOP SCH ×2 (12:25→18:04)
--- NOTE | 2021-12-13 12:26 | Tele-ICU Progress Note ---
Subjective Date Seen by a Provider: Dec 13, 2021 Time Seen by a Provider: 12:26 Subjective/Events-last exam Tele-ICU Physician , Progress Note ) Available chart/ vitals / labs / Images reviewed Video assessment done using teleICU camera, rest of exam as per RN Discussed with RN Events overnight : Afebrile hemodynamically stable, 2 L NC NEG 6 L A/P PAF - as per cards - AC to be start after cath CHF - ECHO 12/12/21 - EF 25% -moderate MR CAD - stenting planned for 12/14 Hypoxia mild with cough - 2 l NC , monitor with diuresis - COPD -as per records - CT in outpatient settings with emphysema ETOH use -thiamine , folate , CIWA Lines : no , (Central Line Necessity Reviewed) Noe: void OG: Nutrition: po Analgesia: Anxiety/ delirium VTE Prophylaxis: lovenox full Stress Ulcer Prophylaxis: na Plans in collaboration with bedside consultants and IM MDs. Discussed with RN to reach out if any questions or concerns A total of 15 minutes of critical care time was devoted to this patient today, required to treat and/or prevent further deterioration of critical care condition ( as above ) . I am remotely monitoring this patient from another state. I am unable to do the bedside exam, and history/physical and pertinent information is taken from other notes in the computer and bedside staff. I cannot take responsibility for the accuracy of this information. Sepsis Event Evaluation Height, Weight, BMI Height: '" Weight: lbs. oz. kg; 21.35 BMI Method: Exam Exam Patient acknowledged, consented, and participated in this virtual visit which was conducted using real time audio/video Vital Signs Date Time Temp Pulse Resp B/P (MAP) Pulse Ox O2 Delivery O2 Flow Rate FiO2 12/13/21 10:00 99 10 126/84 (98) 93 Nasal Cannula 2.00 12/13/21 09:00 151 16 100/85 (90) 93 Nasal Cannula 2.00 12/13/21 08:33 96 Nasal Cannula 2.00 12/13/21 08:00 154 15 124/82 (96) 98 Nasal Cannula 2.00 12/13/21 08:00 36.5 12/13/21 07:45 93 Nasal Cannula 2.00 12/13/21 07:08 156 12/13/21 07:00 116 15 113/91 (98) 96 Nasal Cannula 2.00 12/13/21 06:00 118 17 126/100 (106) 94 Nasal Cannula 2.00 12/13/21 05:00 144 17 172/57 (116) 95 Nasal Cannula 2.00 12/13/21 04:00 94 Nasal Cannula 2.00 12/13/21 04:00 116 29 123/102 (113) 95 Nasal Cannula 2.00 12/13/21 03:59 36.2 12/13/21 03:00 96 15 117/96 (103) 95 Nasal Cannula 2.00 12/13/21 02:39 94 Nasal Cannula 2.00 12/13/21 02:00 94 11 117/95 (104) 93 Nasal Cannula 2.00 12/13/21 01:00 111 19 118/96 (99) 93 Nasal Cannula 2.00 12/13/21 01:00 118 12/13/21 00:17 36.5 12/13/21 00:01 94 Nasal Cannula 2.00 12/13/21 00:00 98 23 113/85 (92) 95 Nasal Cannula 2.00 12/12/21 23:00 96 11 98/88 (94) 93 Nasal Cannula 2.00 12/12/21 22:15 100 102/91 (94) 93 Nasal Cannula 2.00 12/12/21 21:05 117 12 98/87 (91) 95 Nasal Cannula 2.00 12/12/21 20:57 96 Nasal Cannula 2.00 12/12/21 20:00 110 17 126/106 (118) 95 Nasal Cannula 2.00 12/12/21 20:00 94 Nasal Cannula 2.00 12/12/21 19:00 109 15 114/91 (102) 91 Nasal Cannula 2.00 12/12/21 19:00 109 12/12/21 18:00 112 13 116/107 (110) 94 Nasal Cannula 2.00 12/12/21 17:00 110 13 115/92 (100) 100 Nasal Cannula 2.00 12/12/21 16:00 78 17 109/88 (95) 91 Nasal Cannula 2.00 12/12/21 15:31 95 Nasal Cannula 2.00 12/12/21 15:31 95 Nasal Cannula 2.00 12/12/21 15:00 80 17 106/93 (97) 90 Nasal Cannula 2.00 12/12/21 14:30 98 16 124/104 (111) 93 Nasal Cannula 2.00 12/12/21 14:15 81 16 132/92 (105) 94 Nasal Cannula 2.00 12/12/21 14:00 82 14 116/101 (106) 93 Nasal Cannula 2.00 12/12/21 13:45 85 25 112/92 (99) 94 Nasal Cannula 2.00 12/12/21 13:30 93 19 110/55 (73) 95 Nasal Cannula 2.00 12/12/21 13:15 96 16 133/107 (116) 93 Nasal Cannula 2.00 I & O 12/13/21 06:59 Intake Total 450 ml Output Total 5500 ml Balance -5050 ml Height & Weight Height: '" Weight: lbs. oz. kg; 21.35 BMI Method: General Appearance: No Apparent Distress, WD/WN HEENT: Pharynx Normal, Moist Mucous Membranes Neck: Full Range of Motion, Normal Inspection, Non Tender, Supple Respiratory: No Respiratory Distress, Decreased Breath Sounds, Wheezing Cardiovascular: No Murmur, Irregularly Irregular, Tachycardia Capillary Refill: Less Than 3 Seconds Gastrointestinal: normal bowel sounds, non tender, soft Extremity: Normal Inspection, No Pedal Edema Neurologic/Psychiatric: Alert, Normal Mood/Affect Skin: Normal Color, Warm/Dry Results Lab Laboratory Tests 12/12/21 05:15 12/13/21 05:05 Assessment/Plan Assessment/Plan 1 JOSE CUMMINS MD Dec 13, 2021 12:26
--- NOTE | 2021-12-13 12:33 | Diagnostic Imaging Report ---
Indication: Shortness of breath. Time of Exam: 9:14 AM Correlation is made with prior radiograph 2 days earlier. Heart size normal. Small bilateral effusions persist. There is some bibasilar atelectasis. Mid and upper lung gipson are clear. There is no pneumothorax. Impression: Stable chest since exam 2 days earlier. Dictated by: Dictated on workstation # [id number]
[2021-12-13] MEDS: dilTIAZem DRIP PRE-MIX 125 ML IV SCH (17:38)
--- NOTE | 2021-12-13 19:34 | Progress Note - Hospitalist ---
Subjective HPI/CC On Admission Date Seen by Provider: Dec 13, 2021 Time Seen by Provider: 09:50 Subjective/Events-last exam He is sitting in bed. He has no complaints. He denies chest pain and palpitations. He denies shortness of breath. Objective Exam Vital Signs Vital Signs Date Time Temp Pulse Resp B/P (MAP) Pulse Ox O2 Delivery O2 Flow Rate FiO2 12/13/21 18:00 126 9 106/91 (96) 96 Nasal Cannula 2.00 12/13/21 17:00 36.7 12/10/21 16:39 32 Capillary Refill : Less Than 3 Seconds General Appearance: No Apparent Distress, Thin Respiratory: No Respiratory Distress, Decreased Breath Sounds Cardiovascular: Irregularly Irregular, Tachycardia Gastrointestinal: Normal Bowel Sounds, Non Tender, Soft Extremity: Normal Inspection, No Pedal Edema Neurologic/Psychiatric: Alert, Normal Mood/Affect Skin: Normal Color, Warm/Dry Results/Procedures Lab Laboratory Tests 12/13/21 05:05 Patient resulted labs reviewed. Assessment/Plan Assessment and Plan Assess & Plan/Chief Complaint AFib with RVR NSTEMI CAD Acute HFrEF Thoracic aortic aneurysm Cardiology following Therapeutic Lovenox Digoxin and Metoprolol May need ALFONSO cardioversion prior to discharge ASA and Plavix Left heart cath today with left circumflex lesion, unable to intervene due to restlessness Planning for heart cath tomorrow with PCI and anesthesia Will likely require LifeVest with reduced EF SW following Hypokalemia Monitor and correct as needed Alcohol dependence No evidence of withdrawal Stop CIWA COPD MAT protocol Supplemental oxygen as needed Marijuana abuse Recommend cessation DVT prophylaxis: already receiving therapeutic anticoagulation Critical Care Critically Ill Patient Diagnosis/Problems Diagnosis/Problems (1) Atrial fibrillation with RVR Status: Acute (2) Acute HFrEF (heart failure with reduced ejection fraction) Status: Acute (3) NSTEMI (non-ST elevation myocardial infarction) Status: Acute (4) Hypokalemia Status: Acute (5) Alcohol abuse Status: Chronic (6) COPD (chronic obstructive pulmonary disease) Status: Chronic (7) Thoracic aortic aneurysm (TAA) Status: Acute Qualifiers: Presence of rupture: without rupture Qualified Codes: I71.2 - Thoracic aortic aneurysm, without rupture (8) Marijuana abuse Status: Chronic HAY YOST MD Dec 13, 2021 19:33
[2021-12-14] MEDS: NITROGLYCERIN 2% OINT 1 GM UNIT DOSE PACKET TOP SCH ×2 (01:14→06:15)
[2021-12-14] MEDS: RT-ALBUTEROL/IPRATROPIUM 3 ML (DUONEB) VIAL INH SCH ×2 (02:34→10:41)
[2021-12-14 04:39] LABS: MEAN PLATELET VOLUME 10.9 fL (9.0-12.2)
[2021-12-14 04:41] LABS: HEMOGLOBIN 15.5 g/dL (13.3-17.7); WHITE BLOOD COUNT 5.9 10^3/uL (4.3-11.0)
[2021-12-14 05:06] LABS: BILIRUBIN,TOTAL 1.4 MG/DL (0.1-1.0); CALCIUM 8.5 MG/DL (8.5-10.1); CREATININE SERUM 0.71 MG/DL (0.60-1.30); POTASSIUM 4.3 MMOL/L (3.6-5.0); TOTAL PROTEIN 5.2 GM/DL (6.4-8.2)
[2021-12-14] MEDS: NS IV 1000 ML 1,000 ML IV SCH ×3 (06:15→22:45)
[2021-12-14] MEDS: THIAMINE 100 MG (VITAMIN B-1) TAB PO SCH (06:15)
[2021-12-14] MEDS: KCL 20 MEQ TAB (K-DUR) PO SCH (06:16)
[2021-12-14] MEDS: POTASSIUM CL 10MEQ/50ML IVPB 50 ML IV SCH (06:16)
[2021-12-14] MEDS: MAGNESIUM 1 GM/100 ML IVPB 100 ML IV SCH (06:16)
--- NOTE | 2021-12-14 08:54 | Cardiology Progress Note ---
Progress Note-Cardiology Events since last exam Date Seen by Provider: Dec 14, 2021 Time Seen by Provider: 08:49 Events since last exam I am following him due to NSTEMI and acute heart failure with reduced ejection fraction secondary to nonischemic cardiomyopathy. He remains in the intensive care unit. I was not able to perform the coronary stent on 12/13 because he had breakfast and anesthesia would not agree to sedation until 5 PM which could have caused issues if a STEMI came in. The procedure has been rescheduled for today. He denies any further chest discomfort. His breathing has improved. He denies palpitations, syncope, or ankle edema. Certain portions of this document may have been dictated utilizing voice recognition technology. Inherent to this technology, typographical and grammatical errors may exist. As much as I am diligent to identify and correct these mistakes, some errors may remain in the document. Vitals Last set of Vitals Signs Vital Signs 12/10/21 12/14/21 12/14/21 16:39 04:18 08:00 Temp 36.2 Pulse 134 Resp 17 B/P (MAP) 92/88 (89) Pulse Ox 94 O2 Delivery Room Air FiO2 32 Labs Labs Laboratory Tests 12/14/21 04:25 Exam Vital Signs Vital Signs Date Time Temp Pulse Resp B/P (MAP) Pulse Ox O2 Delivery O2 Flow Rate FiO2 12/14/21 08:00 134 17 92/88 (89) 94 Room Air 12/14/21 04:18 36.2 12/14/21 04:00 2.00 12/10/21 16:39 32 Physical Exam General: Alert. No acute distress. Eye: No xanthelasma. HENT: Normocephalic. Neck: Jugular venous pressure does not appear elevated. Respiratory: Lungs are clear to auscultation. Respirations are non-labored. Bailee ath sounds are equal. Symmetrical chest wall expansion. Cardiovascular: Normal rate. Regular rhythm. No murmur. No gallop. No edema. Gastrointestinal: Soft. Normal bowel sounds. Skin: Warm. Dry. Neurologic: Alert and oriented to person, place, time. Cranial nerves 3-11 grossly intact. Psychiatric: Cooperative. Appropriate mood & affect. Labs Laboratory Tests Test 12/14/21 04:25 12/14/21 07:53 Range/Units White Blood Count 5.9 4.3-11.0 10^3/uL Red Blood Count 4.90 4.30-5.52 10^6/uL Hemoglobin 15.5 13.3-17.7 g/dL Hematocrit 46 40-54 % Mean Corpuscular Volume 94 80-99 fL Mean Corpuscular Hemoglobin 32 25-34 pg Mean Corpuscular Hemoglobin Concent 34 32-36 g/dL Red Cell Distribution Width 14.6 H 10.0-14.5 % Platelet Count 123 L 130-400 10^3/uL Mean Platelet Volume 10.9 9.0-12.2 fL Percent Immature Platelet Fraction 5.6 0.0-7.6 % Sodium Level 137 135-145 MMOL/L Potassium Level 4.3 3.6-5.0 MMOL/L Chloride Level 99 98-107 MMOL/L Carbon Dioxide Level 26 21-32 MMOL/L Anion Gap 12 5-14 MMOL/L Blood Urea Nitrogen 15 7-18 MG/DL Creatinine 0.71 0.60-1.30 MG/DL Estimat Glomerular Filtration Rate 101 BUN/Creatinine Ratio 21 Glucose Level 86 70-105 MG/DL Calcium Level 8.5 8.5-10.1 MG/DL Corrected Calcium 9.3 8.5-10.1 MG/DL Total Bilirubin 1.4 H 0.1-1.0 MG/DL Aspartate Amino Transf (AST/SGOT) 54 H 5-34 U/L Alanine Aminotransferase (ALT/SGPT) 61 H 0-55 U/L Alkaline Phosphatase 58 40-136 U/L Total Protein 5.2 L 6.4-8.2 GM/DL Albumin 3.0 L 3.2-4.5 GM/DL Diagnosis/Problems Diagnosis/Problems (1) Acute HFrEF (heart failure with reduced ejection fraction) Status: Acute Assessment & Plan: This appears to be due to nonischemic cardiomyopathy. He is on metoprolol succinate. I started him on low-dose lisinopril on 12/12. I stopped IV Lasix. I will start him on a low-dose of oral Lasix. (2) Non-ST elevation myocardial infarction (NSTEMI), initial care episode Assessment & Plan: This appears to have been due to significant stenosis in the left circumflex system. He will ultimately need a stent placed but due to him being uncooperative during the diagnostic cardiac catheterization, I had to abort the procedure for his own safety. I have started him on clopidogrel. He was already on aspirin. His transaminase levels have been trending downwards. I will start intensive dose statin medication. If there is an opening in the [facility] around noon, I will plan to proceed with stent placement at that time. I have requested the assistance of anesthesia for deeper sedation so he does not move during the procedure. He should continue on the enoxaparin which I will discontinue following the procedure. (3) Cardiomyopathy Assessment & Plan: He has single-vessel disease would suggest that he does not have ischemic cardiomyopathy. 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 I will slowly start him on the appropriate guideline directed medical therapy. In light of the myocardial infarction coupled with severe cardiomyopathy, we may also want to consider a LifeVest prior to discharge. I explained the device to him and his sister and he is not opposed. His lack of insurance may be an issue but the company can often help with this. I did order the LifeVest on 12/13 and contacted the lead refiner. (4) Paroxysmal atrial fibrillation Assessment & Plan: He has atrial fibrillation of unknown duration. His heart rates remain elevated at times. I did give him 1 dose of intravenous digoxin on 12/13 and started oral digoxin. I am not sure he will tolerate a higher dose of beta-mike given his somewhat low blood pressure. If we cannot get his heart rates under control, then we may need to consider transesophageal echocardiogram and cardioversion. Once we complete his coronary stent procedure, I will plan to start him on rivaroxaban. I am choosing this DOAC over apixaban because he cannot get this on the 340B program at a markedly reduced cost. (5) Coronary artery disease with unstable angina pectoris Assessment & Plan: As above. (6) Mitral regurgitation Assessment & Plan: His echocardiogram showed moderate mitral regurgitation. This may be functional regurgitation related to the left ventricular dilatation and may improve as we treat his cardiomyopathy. This condition will need to follow-up followed longitudinally. There is no indication for mitral valve intervention at this time. (7) Thoracic aortic aneurysm without rupture Assessment & Plan: His chest CT from the outside facility showed a mild thoracic aortic aneurysm and his echocardiogram from 12/12 also showed mild dilatation of the aortic root. This will need to be followed longitudinally. He is now on beta-mike. (8) Emphysema lung Assessment & Plan: His chest CT from the outside facility shows mild emphysema. This may be explaining at least some of his shortness of breath. The hospitalist will be managing this condition. He needs to be encouraged to quit smoking. (9) Alcohol dependence Assessment & Plan: From his description, he has anywhere from 2-4 alcoholic drinks per day. He denies any previous history of withdrawal symptoms. He will need to be watched closely for any signs of withdrawal. As above, he may have some tachycardia related to early withdrawal. (10) Marijuana smoker Assessment & Plan: He needs to be encouraged to quit smoking. ZARI BARROW JR, MD Dec 14, 2021 08:54
[2021-12-14] MEDS: DIGOXIN 0.125 MG (LANOXIN) TAB PO SCH (09:10)
[2021-12-14] MEDS: ASPIRIN E.C. 81 MG (ECOTRIN) TAB PO SCH (09:10)
[2021-12-14] MEDS: guaiFENesin (MUCINEX) 600 MG TAB PO SCH ×2 (09:10→20:35)
[2021-12-14] MEDS: FOLIC ACID 1 MG TAB PO SCH (09:10)
[2021-12-14] MEDS: lisINopril 5 MG (PRINIVIL) TABLET PO SCH (09:11)
[2021-12-14] MEDS: CLOPIDOGREL 75 MG (PLAVIX) TABLET PO SCH (09:11)
[2021-12-14] MEDS: ENOXAPARIN 80 MG/0.8 ML (LOVENOX) SYR SC SCH (09:11)
[2021-12-14] MEDS: FUROSEMIDE 20 MG (LASIX) TAB PO SCH (09:13)
--- NOTE | 2021-12-14 10:04 | Tele-ICU Progress Note ---
Subjective Date Seen by a Provider: Dec 14, 2021 Time Seen by a Provider: 10:03 Subjective/Events-last exam . (Tele-ICU Physician , Progress Note ) Available chart/ vitals / labs / Images reviewed Video assessment done using teleICU camera, rest of exam as per RN Discussed with RN Events overnight : Afebrile hemodynamically stable, 2 L NC / RA NEG 6 L A/P PAF - as per cards - AC to be start after cath non-ICM - ECHO 12/12/21 - EF 25% -moderate MR -Life-vest ordered CAD - stenting planned for 12/14 Hypoxia mild with cough - 1 l NC , monitor with diuresis - COPD -as per records - CT in outpatient settings with emphysema - will change nebs to PRN - might help with HR - PER PCP IF NEEDS TO BE STARTED ON LABA ETOH use -thiamine , folate , CIWA - scoring low DNR as per patient decision Lines : no , (Central Line Necessity Reviewed) Noe: void OG: Nutrition: po Analgesia: Anxiety/ delirium VTE Prophylaxis: lovenox full Stress Ulcer Prophylaxis: na Plans in collaboration with bedside consultants and IM MDs. Discussed with RN to reach out if any questions or concerns A total of 15 minutes of critical care time was devoted to this patient today, required to treat and/or prevent further deterioration of critical care condition ( as above ) . I am remotely monitoring this patient from another state. I am unable to do the bedside exam, and history/physical and pertinent information is taken from other notes in the computer and bedside staff. I cannot take responsibility for the accuracy of this information. . Sepsis Event Evaluation Height, Weight, BMI Height: '" Weight: lbs. oz. kg; 21.35 BMI Method: Exam Exam Patient acknowledged, consented, and participated in this virtual visit which was conducted using real time audio/video Vital Signs Date Time Temp Pulse Resp B/P (MAP) Pulse Ox O2 Delivery O2 Flow Rate FiO2 12/14/21 09:00 129 15 114/97 (103) 97 Room Air 12/14/21 08:00 134 17 92/88 (89) 94 Room Air 12/14/21 07:00 101 13 104/93 (97) 90 Room Air 12/14/21 06:45 142 12/14/21 06:15 107 16 108/90 (98) 93 Room Air 12/14/21 05:00 115 16 94 Room Air 12/14/21 04:18 36.2 12/14/21 04:00 94 Nasal Cannula 2.00 12/14/21 04:00 94 13 92/85 (89) 93 Room Air 12/14/21 03:00 106 18 121/89 (106) 92 Room Air 12/14/21 02:36 94 Nasal Cannula 2.00 12/14/21 02:00 105 12 99/85 (89) 93 Room Air 12/14/21 01:00 120 24 104/81 (92) 95 Room Air 12/14/21 01:00 120 12/14/21 00:01 36.4 12/14/21 00:00 98 149/118 (125) 93 Room Air 12/14/21 00:00 94 Nasal Cannula 2.00 12/13/21 23:08 128 21 105/44 (61) 94 Room Air 12/13/21 22:00 114 18 98/72 (76) 96 Room Air 12/13/21 21:28 94 Nasal Cannula 2.00 12/13/21 21:16 92 15 117/94 (98) 95 Room Air 12/13/21 20:06 131 14 102/72 (82) 95 Nasal Cannula 2.00 12/13/21 20:00 94 Nasal Cannula 2.00 12/13/21 19:38 137 13 102/82 (90) 96 Nasal Cannula 2.00 12/13/21 19:29 37.7 12/13/21 19:00 108 12/13/21 18:00 126 9 106/91 (96) 96 Nasal Cannula 2.00 12/13/21 17:00 36.7 12/13/21 17:00 116 19 95 Nasal Cannula 2.00 12/13/21 16:00 96 Nasal Cannula 2.00 12/13/21 16:00 126 20 101/82 (88) 91 Nasal Cannula 2.00 12/13/21 15:30 111 20 111/93 (99) 94 Nasal Cannula 2.00 12/13/21 15:00 99 11 80/63 (69) 94 Nasal Cannula 2.00 12/13/21 14:26 94 Nasal Cannula 2.00 12/13/21 14:00 118 13 115/85 (95) 99 Nasal Cannula 2.00 12/13/21 13:00 117 19 93 Nasal Cannula 2.00 12/13/21 12:40 154 12/13/21 12:00 96 Nasal Cannula 2.00 12/13/21 12:00 37.6 12/13/21 12:00 121 22 100/84 (89) 93 Nasal Cannula 2.00 12/13/21 11:00 115 11 117/86 (96) 92 Nasal Cannula 2.00 I & O 12/14/21 07:00 Intake Total 1250 ml Output Total 2475 ml Balance -1225 ml Height & Weight Height: '" Weight: lbs. oz. kg; 21.35 BMI Method: General Appearance: No Apparent Distress, Thin HEENT: Pharynx Normal, Moist Mucous Membranes Neck: Full Range of Motion, Normal Inspection, Non Tender, Supple Respiratory: No Respiratory Distress, Decreased Breath Sounds Cardiovascular: Irregularly Irregular, Tachycardia Capillary Refill: Less Than 3 Seconds Gastrointestinal: normal bowel sounds, non tender, soft Extremity: Normal Inspection, No Pedal Edema Neurologic/Psychiatric: Alert, Normal Mood/Affect Skin: Normal Color, Warm/Dry Results Lab Laboratory Tests 12/13/21 05:05 12/14/21 04:25 Assessment/Plan Assessment/Plan 1 JOSE CUMMINS MD Dec 14, 2021 10:04
[2021-12-14] MEDS ORDERED: NS IV 1000 ML 1,000 ML ONE (11:32)
[2021-12-14] MEDS ORDERED: HEParin (CATH LAB) 2,000 ML IV ONE (11:32)
[2021-12-14] MEDS ORDERED: LIDOCAINE 1% INJ 30 ML (XYLOCAINE) VIAL ONE (11:32)
--- NOTE | 2021-12-14 11:55 | Pre-Op Note & Conscious Sedat ---
Pre-Operative Progress Note Date H&P Reviewed: Dec 14, 2021 Time H&P Reviewed: 11:54 Pre-Op Diagnosis: NSTEMI, acute systolic heart failure and cardiomyopathy Conscious Sedation Pre-Proced Time 12:11 ASA Score 2 For ASA 3 and 4: Consider anesthesia and medical clearance. Also, for patients with a history of failed moderate sedation consider anesthesia. Airway Lungs Heart ASA score ASA 1: a normal healthy patient ASA 2: a patient with a mild systemic disease (mid diabetes, controlled hypertension, obesity ASA 3: a patient with a severe systemic disease that limits activity (angina, COPD, prior Myocardial infarction) ASA 4: a patient with an incapacitating disease that is a constant threat to life (CHF, renal failure) ASA 5: a moribund patient not expected to survive 24 hrs. (ruptured aneurysm) ASA 6: a declared brain- patient whose organs are being harvested. For emergent operations, add the letter E after the classification Mallampati Classification Grade 2 Sedation Plan Analgesia, Amnesia, Plan communicated to team members, Discussed options with patient/fam, Discussed risks with patient/fam The patient is an appropriate candidate to undergo the planned procedure, sedation, and anesthesia. The patient immediately re-assessed prior to indication. Given his current clinical status, he is considered moderately frail. He currently has acute class IV heart failure with reduced ejection fraction. ZARI BARROW JR, MD Dec 14, 2021 11:55
[2021-12-14] MEDS ORDERED: MIDAZOLAM 2 MG/2 ML (VERSED) VIAL ONE (11:56)
[2021-12-14] MEDS ORDERED: VERAPAMIL 5 MG/2 ML (CALAN) VIAL IV ONE (11:56)
[2021-12-14] MEDS ORDERED: HEParin 1000 UNIT/ML (10ML VIAL) FOR BOLUS ONE (11:56)
[2021-12-14] MEDS ORDERED: NITRO DRIP 25000 MCG/D5W 250 ML IV ONE (11:56)
[2021-12-14] MEDS ORDERED: fentaNYL INJ 100 MCG/2 ML AMP ONE (11:58)
--- NOTE | 2021-12-14 12:49 | Cardiac Cath Report ---
CARDIAC CATHETERIZATION DATE OF PROCEDURE: 12/14/2021 INDICATION: Non-ST elevation myocardial infarction, acute heart failure with reduced ejection fraction and nonischemic cardiomyopathy. HISTORY: The patient is a 66 year old male with a known history of coronary artery disease who presented to the hospital with heart failure and non-ST elevation myocardial infarction. He underwent a cardiac catheterization on 12/12/2021 that showed significant disease to the left circumflex coronary artery. This was felt to be the ischemia related vessel for the non-ST elevation myocardial infarction. I did attempt intervention on the day of the diagnostic cardiac catheterization but the patient was agitated and I could not safely perform the procedure. Therefore, the patient returns today for percutaneous coronary intervention to the left circumflex coronary artery. Given that there was flow in the branch without evidence of thrombus, I did feel it was safe to do this as a staged procedure. The patient specifically requested that he not have a medicated stent. Given his current clinical status, he is considered moderately frail. He has class IV, acute heart failure with reduced ejection fraction. Since this procedure was being done for an acute non-ST elevation myocardial infarction, a stress test for flow measurements were not performed. PROCEDURES PERFORMED: 1. Bare-metal stent placement to mid left circumflex coronary artery. PROCEDURE DESCRIPTION: After informed consent and in the fasting state, left heart catheterization was performed through the right radial artery utilizing a 6 Guamanian system by percutaneous approach. A 6 Guamanian CLS 3.5 guide catheter was utilized for the procedure. The catheter were exchanged over a guidewire. Following the procedure, a vascular band was applied to the radial artery access site and the sheath was removed with good hemostasis. RESULTS: HEMODYNAMICS: The aortic pressure was 122/80 mmHg. The aortic valve was not crossed. CORONARY ANGIOGRAPHY: The left coronary system was the only vessel evaluated. Left main coronary artery: Free of significant disease. Left anterior descending coronary artery: Free of significant disease. Left circumflex coronary artery: There was a 90% stenosis in the midportion of the vessel with VENTURA-2 flow. This was the ischemia related vessel for the non- ST elevation myocardial infarction. PERCUTANEOUS CORONARY INTERVENTION: Percutaneous coronary convention was carried out on the left circumflex coronary artery through a 6 Guamanian CLS 3.5 guide catheter. The lesion was successfully crossed with a Paymate guidewire. I subsequently performed coronary angioplasty with a 3 x 15 mm Trek balloon at a pressure of 10 yue. Flow was improved. I subsequently deployed a 3.5 x 23 mm bare-metal Vision stent at a pressure of 16 yue. The patient specifically requested a bare-metal stent. Following stent placement, there was 0% residual stenosis with VENTURA-3 flow. IMPRESSION: 1. Normal central aortic pressure. 2. Status post bare-metal stent placement to the mid left circumflex coronary artery for a non-ST elevation myocardial infarction with a 3.5 x 23 mm Vision stent with 0% residual stenosis and VENTURA-3 flow. 3. The patient is known to have severe left ventricular systolic dysfunction with an estimated ejection fraction of 25-30% by echocardiogram performed on 12/12/2021. Certain portions of this document may have been dictated utilizing voice recognition technology. Inherent to this technology, typographical and grammatical errors may exist. As much as I am diligent to identify and correct these mistakes, some errors may remain in the document. ZARI BARROW JR, MD Dec 14, 2021 12:49
[2021-12-14] MEDS: RIVAROXABAN 20 MG TABLET (XARELTO) PO SCH (17:42)
--- NOTE | 2021-12-14 18:56 | Progress Note - Hospitalist ---
Subjective HPI/CC On Admission Date Seen by Provider: Dec 14, 2021 Time Seen by Provider: 09:40 Subjective/Events-last exam He is feeling well. He denies chest pain and palpitations. He denies shortness of breath. Objective Exam Vital Signs Vital Signs Date Time Temp Pulse Resp B/P (MAP) Pulse Ox O2 Delivery O2 Flow Rate FiO2 12/14/21 18:00 96 11 90/40 (57) 90 Room Air 12/14/21 12:00 36.6 12/14/21 10:42 2.00 12/10/21 16:39 32 Capillary Refill : Less Than 3 Seconds General Appearance: No Apparent Distress, WD/WN Respiratory: No Respiratory Distress, Decreased Breath Sounds Cardiovascular: Irregularly Irregular, Tachycardia Gastrointestinal: Normal Bowel Sounds, Soft Extremity: Normal Inspection, No Pedal Edema Neurologic/Psychiatric: Alert, Normal Mood/Affect Skin: Normal Color, Warm/Dry Results/Procedures Lab Laboratory Tests 12/14/21 04:25 Patient resulted labs reviewed. Assessment/Plan Assessment and Plan Assess & Plan/Chief Complaint AFib with RVR NSTEMI CAD Acute HFrEF Thoracic aortic aneurysm Cardiology following Starting on Xarelto Digoxin and Metoprolol May need ALFONSO cardioversion prior to discharge ASA and Plavix Left heart cath with left circumflex lesion, bare metal stent today Will likely require LifeVest with reduced EF SW following Hypokalemia Monitor and correct as needed Alcohol dependence No evidence of withdrawal COPD MAT protocol Supplemental oxygen as needed Marijuana abuse Recommend cessation DVT prophylaxis: already receiving therapeutic anticoagulation Critical Care Critically Ill Patient Diagnosis/Problems Diagnosis/Problems (1) Atrial fibrillation with RVR Status: Acute (2) Acute HFrEF (heart failure with reduced ejection fraction) Status: Acute (3) NSTEMI (non-ST elevation myocardial infarction) Status: Acute (4) Hypokalemia Status: Acute (5) Alcohol abuse Status: Chronic (6) COPD (chronic obstructive pulmonary disease) Status: Chronic (7) Thoracic aortic aneurysm (TAA) Status: Acute Qualifiers: Presence of rupture: without rupture Qualified Codes: I71.2 - Thoracic aortic aneurysm, without rupture (8) Marijuana abuse Status: Chronic HAY YOST MD Dec 14, 2021 18:56
[2021-12-14] MEDS: ROSUVASTATIN 20 MG (CRESTOR) TABLET PO SCH (20:35)
[2021-12-14] MEDS: dilTIAZem DRIP PRE-MIX 125 ML IV SCH (20:41)
[2021-12-14 22:36] LABS: HEPATITIS C ANTIBODY C Reactive (Non-Reactive)
[2021-12-15 05:18] LABS: HEMATOCRIT 49 % (40-54); HEMOGLOBIN 16.4 g/dL (13.3-17.7); MEAN CORPUSCULAR HEMOGLOBIN 31 pg (25-34); MEAN CORPUSCULAR HGB CONC 34 g/dL (32-36); MEAN CORPUSCULAR VOLUME 93 fL (80-99); MEAN PLATELET VOLUME 11.1 fL (9.0-12.2); PLATELET COUNT 144 10^3/uL (130-400); WHITE BLOOD COUNT 6.1 10^3/uL (4.3-11.0)
[2021-12-15 05:30] LABS: CALCIUM 8.6 MG/DL (8.5-10.1)
[2021-12-15 05:34] LABS: CREATININE SERUM 0.67 MG/DL (0.60-1.30)
[2021-12-15] MEDS: POTASSIUM CL 10MEQ/50ML IVPB 50 ML IV SCH (06:00)
[2021-12-15] MEDS: KCL 20 MEQ TAB (K-DUR) PO SCH (06:00)
[2021-12-15] MEDS: MAGNESIUM 1 GM/100 ML IVPB 100 ML IV SCH (06:56)
[2021-12-15] MEDS ORDERED: LIDOCAINE 2% VISCOUS 15 ML UDC ONE (07:49)
[2021-12-15] MEDS: CLOPIDOGREL 75 MG (PLAVIX) TABLET PO SCH (08:06)
[2021-12-15] MEDS: DIGOXIN 0.125 MG (LANOXIN) TAB PO SCH (08:06)
[2021-12-15] MEDS: ASPIRIN E.C. 81 MG (ECOTRIN) TAB PO SCH (08:06)
[2021-12-15] MEDS: lisINopril 5 MG (PRINIVIL) TABLET PO SCH (08:07)
[2021-12-15] MEDS ORDERED: proPOfol 200 MG/20 ML (DIPRIVAN) VIAL IV ONE (08:23)
[2021-12-15] MEDS ORDERED: MIDAZOLAM 2 MG/2 ML (VERSED) VIAL ONE (08:24)
[2021-12-15] MEDS: NS IV 1000 ML 1,000 ML IV SCH ×2 (08:40→17:53)
--- NOTE | 2021-12-15 09:13 | Cardiac Procedure Note-[facility] ---
Cardiology Procedures Date of Procedure 12/15/21 DIRECT-CURRENT CARDIOVERSION INDICATION: Persistent atrial fibrillation. PROCEDURE: After informed consent and in the fasting state, deep sedation was provided by the anesthesia department. Karli Morales MD first performed a transesophageal echocardiogram which did not show any evidence of thrombus in the left atrium or left atrial appendage. I subsequently performed direct- current cardioversion with synchronized, biphasic shocks in a stepwise fashion starting with 100 J then 150 J and then 200 J. On the first and third shocks the patient briefly converted to sinus rhythm but within a few heartbeats, converted back to atrial fibrillation. IMPRESSION: 1. Status post unsuccessful attempted direct-current cardioversion with synchronized biphasic shocks with a final energy level of 200 J. Certain portions of this document may have been dictated utilizing voice recognition technology. Inherent to this technology, typographical and grammatical errors may exist. As much as I am diligent to identify and correct these mistakes, some errors may remain in the document. ZARI BARROW JR, MD Dec 15, 2021 09:13
--- NOTE | 2021-12-15 09:15 | Cardiology Progress Note ---
Progress Note-Cardiology Events since last exam Date Seen by Provider: Dec 15, 2021 Time Seen by Provider: 09:13 Events since last exam I am following him due to NSTEMI with acute heart failure with reduced ejection fraction and nonischemic cardiomyopathy as well as persistent atrial fibrillation. He denies chest discomfort. His breathing has improved. He denies palpitations, syncope, or ankle edema. Certain portions of this document may have been dictated utilizing voice recognition technology. Inherent to this technology, typographical and grammatical errors may exist. As much as I am diligent to identify and correct these mistakes, some errors may remain in the document. Vitals Last set of Vitals Signs Vital Signs 12/10/21 12/15/21 12/15/21 12/15/21 12/15/21 16:39 09:34 11:00 11:55 12:00 Temp 36.2 Pulse 89 Resp 11 B/P (MAP) 92/83 (86) Pulse Ox 95 O2 Delivery Room Air O2 Flow Rate 13.00 FiO2 32 Labs Labs Laboratory Tests 12/15/21 04:48 Exam Vital Signs Vital Signs Date Time Temp Pulse Resp B/P (MAP) Pulse Ox O2 Delivery O2 Flow Rate FiO2 12/15/21 12:00 Room Air 12/15/21 11:55 36.2 12/15/21 11:00 89 11 92/83 (86) 95 12/15/21 09:34 13.00 12/10/21 16:39 32 Physical Exam General: Alert. No acute distress. Eye: No xanthelasma. HENT: Normocephalic. Neck: Jugular venous pressure does not appear elevated. Respiratory: Lungs are clear to auscultation. Respirations are non-labored. Breath sounds are equal. Symmetrical chest wall expansion. Cardiovascular: Normal rate. Regular rhythm. No murmur. No gallop. No edema. Gastrointestinal: Soft. Normal bowel sounds. Skin: Warm. Dry. Neurologic: Alert and oriented to person, place, time. Cranial nerves 3-11 grossly intact. Psychiatric: Cooperative. Appropriate mood & affect. Labs Laboratory Tests Test 12/15/21 04:48 Range/Units White Blood Count 6.1 4.3-11.0 10^3/uL Red Blood Count 5.22 4.30-5.52 10^6/uL Hemoglobin 16.4 13.3-17.7 g/dL Hematocrit 49 40-54 % Mean Corpuscular Volume 93 80-99 fL Mean Corpuscular Hemoglobin 31 25-34 pg Mean Corpuscular Hemoglobin Concent 34 32-36 g/dL Red Cell Distribution Width 14.6 H 10.0-14.5 % Platelet Count 144 130-400 10^3/uL Mean Platelet Volume 11.1 9.0-12.2 fL Sodium Level 136 135-145 MMOL/L Potassium Level 4.0 3.6-5.0 MMOL/L Chloride Level 101 98-107 MMOL/L Carbon Dioxide Level 26 21-32 MMOL/L Anion Gap 9 5-14 MMOL/L Blood Urea Nitrogen 16 7-18 MG/DL Creatinine 0.67 0.60-1.30 MG/DL Estimat Glomerular Filtration Rate 103 BUN/Creatinine Ratio 24 Glucose Level 91 70-105 MG/DL Calcium Level 8.6 8.5-10.1 MG/DL Magnesium Level 2.0 1.6-2.4 MG/DL Diagnosis/Problems Diagnosis/Problems (1) Acute HFrEF (heart failure with reduced ejection fraction) Status: Acute Assessment & Plan: This appears to be due to nonischemic cardiomyopathy. He is on metoprolol succinate. I started him on low-dose lisinopril on 12/12. I stopped IV Lasix. I started him on a low-dose of oral Lasix on 12/13. Due to low blood pressures, I will stop the lisinopril at this time. (2) Non-ST elevation myocardial infarction (NSTEMI), initial care episode Assessment & Plan: This appears to have been due to significant stenosis in the left circumflex system. This was treated with 1 drug-eluting stent in a staged fashion. He should continue aspirin until the time of discharge. At the time of discharge he will continue on clopidogrel, metoprolol and intensive dose statin medication. Since he will be on rivaroxaban for atrial fibrillation, I suggest he stop aspirin at the time of discharge. (3) Paroxysmal atrial fibrillation Assessment & Plan: He has atrial fibrillation of unknown duration. His heart rates remain elevated at times. I did give him 1 dose of intravenous digoxin on 12/13 and started oral digoxin. His transesophageal echocardiogram did not show any evidence of atrial thrombus. He underwent cardioversion which was not successful. I started him on rivaroxaban on 12/14. I will start him on amiodarone infusion today and plan to change this to oral tomorrow. After he receives the amiodarone bolus, if he does not convert to sinus rhythm, I will consider another cardioversion tomorrow. My plan will be to taper amiodarone following discharge. (4) Cardiomyopathy Assessment & Plan: He has single-vessel disease would suggest that he does not have ischemic cardiomyopathy. 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 I will slowly start him on the appropriate guideline directed medical therapy. In light of the myocardial infarction coupled with severe cardiomyopathy, we may also want to consider a LifeVest prior to discharge. I explained the device to him and his sister and he is not opposed. His lack of insurance may be an issue but the company can often help with this. I did order the LifeVest on 12/13 and contacted the regular senior care provider. As above, I will stop the lisinopril due to low blo od pressures. We will continue metoprolol succinate. (5) Coronary artery disease with unstable angina pectoris Assessment & Plan: As above. (6) Mitral regurgitation Assessment & Plan: His echocardiogram showed moderate mitral regurgitation. This may be functional regurgitation related to the left ventricular dilatation and may improve as we treat his cardiomyopathy. This condition will need to follow-up followed longitudinally. There is no indication for mitral valve intervention at this time. (7) Thoracic aortic aneurysm without rupture Assessment & Plan: His chest CT from the outside facility showed a mild thoracic aortic aneurysm and his echocardiogram from 12/12 also showed mild dilatation of the aortic root. This will need to be followed longitudinally. He is now on beta-mike. (8) Emphysema lung Assessment & Plan: His chest CT from the outside facility shows mild emphysema. This may be explaining at least some of his shortness of breath. The hospitalist will be managing this condition. He needs to be encouraged to quit smoking. (9) Alcohol dependence Assessment & Plan: From his description, he has anywhere from 2-4 alcoholic drinks per day. He denies any previous history of withdrawal symptoms. He will need to be watched closely for any signs of withdrawal. As above, he may have some tachycardia related to early withdrawal. (10) Marijuana smoker Assessment & Plan: He needs to be encouraged to quit smoking. ZARI BARROW JR, MD Dec 15, 2021 09:15
--- NOTE | 2021-12-15 09:36 | Tele-ICU Progress Note ---
Subjective Date Seen by a Provider: Dec 15, 2021 Time Seen by a Provider: 09:36 Subjective/Events-last exam . (Tele-ICU Physician , Progress Note ) Available chart/ vitals / labs / Images reviewed Video assessment done using teleICU camera, rest of exam as per RN Discussed with RN Events overnight : Afebrile NEG 6 L A/P PAF - unsuccessful attempted direct-current cardioversion 01/15 --> amio gtt started - AC as pe cards Acute resp failure - sedated after anaestesia 12/15 ( 2 versed , 160 propofol - protects airway , respons to sternal rub - anaestesiology in room - will try BIPAP and follow ( Hypoxia mild with cough since presentation - 1 l NC) non-ICM - ECHO 12/12/21 - EF 25% -moderate MR -Life-vest ordered CAD -(12/14) CCL w/anesthesia: BMS to mid L Cx - COPD -as per records - CT in outpatient settings with emphysema - will change nebs to PRN - might help with HR - PER PCP IF NEEDS TO BE STARTED ON LABA ETOH use -thiamine , folate , CIWA - scoring low DNR as per patient decision Lines : no , (Central Line Necessity Reviewed) Noe: void OG: Nutrition: po Analgesia: Anxiety/ delirium VTE Prophylaxis: lovenox full Stress Ulcer Prophylaxis: na Plans in collaboration with bedside consultants and IM MDs. Discussed with RN to reach out if any questions or concerns A total of 35 minutes of critical care time was devoted to this patient today, required to treat and/or prevent further deterioration of critical care condition ( as above ) . I am remotely monitoring this patient from another state. I am unable to do the bedside exam, and history/physical and pertinent information is taken from other notes in the computer and bedside staff. I cannot take responsibility for the accuracy of this information. . Sepsis Event Evaluation Height, Weight, BMI Height: '" Weight: lbs. oz. kg; 19.92 BMI Method: Exam Exam Patient acknowledged, consented, and participated in this virtual visit which was conducted using real time audio/video Vital Signs Date Time Temp Pulse Resp B/P (MAP) Pulse Ox O2 Delivery O2 Flow Rate FiO2 12/15/21 09:34 100 OxyMask 13.00 12/15/21 09:00 168 20 98/84 (89) 97 Room Air 12/15/21 08:00 122 17 82/71 (75) 95 Room Air 12/15/21 07:45 36.0 12/15/21 07:00 138 13 128/114 (119) 91 Room Air 12/15/21 07:00 112 12/15/21 06:00 102 16 115/84 (94) 94 Room Air 12/15/21 05:00 126 14 144/127 (133) 95 Room Air 12/15/21 04:00 37.3 12/15/21 04:00 93 22 140/116 (124) 92 Room Air 12/15/21 03:58 95 Room Air 12/15/21 03:00 106 20 115/104 (108) 93 Room Air 12/15/21 02:00 135 28 115/96 (102) 92 Room Air 12/15/21 01:00 115 16 120/78 (92) 92 Room Air 12/15/21 00:59 84 12/15/21 00:22 93 Room Air 12/15/21 00:00 95 Room Air 12/15/21 00:00 110 16 103/82 (89) 94 Room Air 12/15/21 00:00 37.1 12/14/21 23:00 105 17 105/86 (92) 94 Room Air 12/14/21 22:00 107 19 112/74 (87) 93 Room Air 12/14/21 21:00 105 17 99/84 (89) 91 Room Air 12/14/21 20:00 87 17 117/108 (111) 94 Room Air 12/14/21 20:00 94 Room Air 12/14/21 20:00 37.6 12/14/21 19:04 106 12/14/21 19:00 99 13 123/87 (99) 92 Room Air 12/14/21 18:00 96 11 90/40 (57) 90 Room Air 12/14/21 17:00 105 10 101/88 (92) 92 Room Air 12/14/21 16:00 93 Room Air 12/14/21 16:00 98 13 107/70 (82) 92 Room Air 12/14/21 15:00 98 13 107/70 (82) 92 Room Air 12/14/21 14:00 105 12 105/81 (89) 93 Room Air 12/14/21 13:30 92 Room Air 12/14/21 13:16 123 10/12/22 13:00 104 15 149/121 (130) 92 Room Air 12/14/21 12:00 104 22 128/110 (116) 93 Room Air 12/14/21 12:00 36.6 12/14/21 11:00 103 14 128/102 (111) 95 Room Air 12/14/21 10:42 94 Nasal Cannula 2.00 12/14/21 10:00 149 11 89/78 (82) 93 Room Air I & O 12/15/21 07:00 Intake Total 300 ml Output Total 2250 ml Balance -1950 ml Height & Weight Height: '" Weight: lbs. oz. kg; 19.92 BMI Method: General Appearance: No Apparent Distress, WD/WN HEENT: Pharynx Normal, Moist Mucous Membranes Neck: Full Range of Motion, Normal Inspection, Non Tender, Supple Respiratory: No Respiratory Distress, Decreased Breath Sounds Cardiovascular: Irregularly Irregular, Tachycardia Capillary Refill: Less Than 3 Seconds Gastrointestinal: normal bowel sounds, non tender, soft Extremity: Normal Inspection, No Pedal Edema Neurologic/Psychiatric: Alert, Normal Mood/Affect Skin: Normal Color, Warm/Dry Results Lab Laboratory Tests 12/14/21 04:25 12/15/21 04:48 Assessment/Plan Assessment/Plan 1 JOSE CUMMINS MD Dec 15, 2021 09:36
[2021-12-15] MEDS: AMIODARONE INJECTION 450 MG in NORMAL SALINE 250 ML IV SCH ×2 (09:50→18:06)
[2021-12-15] MEDS: FOLIC ACID 1 MG TAB PO SCH (10:39)
[2021-12-15] MEDS: guaiFENesin (MUCINEX) 600 MG TAB PO SCH ×2 (10:39→20:12)
[2021-12-15] MEDS: THIAMINE 100 MG (VITAMIN B-1) TAB PO SCH (10:39)
[2021-12-15] MEDS: FUROSEMIDE 20 MG (LASIX) TAB PO SCH (10:39)
--- NOTE | 2021-12-15 14:28 | Anesthesia-General Post-Op ---
MAC Patient Condition Mental Status/LOC: Same as Preop Cardiovascular: Satisfactory Nausea/Vomiting: Absent Respiratory: Satisfactory Pain: Controlled Complications: Absent Post Op Complications Complications None Follow Up Care/Instructions Patient Instructions None needed. Anesthesiology Discharge Order Discharge Order Patient was doing well this morning after the procedure with no complaints, stable vital signs, no apparent adverse anesthesia problems. No complications reported per nursing. DENNYS CRUZ DO Dec 15, 2021 14:28
--- NOTE | 2021-12-15 15:24 | Progress Note - Hospitalist ---
Subjective HPI/CC On Admission Date Seen by Provider: Dec 15, 2021 Time Seen by Provider: 09:40 Subjective/Events-last exam He is feeling well. He has no complaints. He denies pain. He denies shortness of breath. Objective Exam Vital Signs Vital Signs Date Time Temp Pulse Resp B/P (MAP) Pulse Ox O2 Delivery O2 Flow Rate FiO2 12/15/21 15:00 111 20 87/70 (76) 94 Room Air 12/15/21 11:55 36.2 12/15/21 09:34 13.00 12/10/21 16:39 32 Capillary Refill : Less Than 3 Seconds General Appearance: No Apparent Distress, WD/WN Respiratory: No Respiratory Distress, Decreased Breath Sounds Cardiovascular: No Murmur, Irregularly Irregular, Tachycardia Gastrointestinal: Normal Bowel Sounds, Soft Extremity: Normal Inspection, No Pedal Edema Neurologic/Psychiatric: Alert, Normal Mood/Affect Results/Procedures Lab Laboratory Tests 12/15/21 04:48 Patient resulted labs reviewed. Assessment/Plan Assessment and Plan Assess & Plan/Chief Complaint AFib with RVR NSTEMI CAD Acute HFrEF Thoracic aortic aneurysm Cardiology following Continue Xarelto, Digoxin and Metoprolol ALFONSO cardioversion unsuccessful this morning Started on Amiodarone Planning repeat cardioversion tomorrow morning if needed ASA and Plavix s/p left heart cath with left circumflex lesion, bare metal stent 12/14 Will likely require LifeVest with reduced EF SW following Elevated LFTs Hep C Ab positive Hep C RNA pending Hypokalemia Monitor and correct as needed Alcohol dependence No evidence of withdrawal COPD MAT protocol Supplemental oxygen as needed Marijuana abuse Recommend cessation DVT prophylaxis: already receiving therapeutic anticoagulation Critical Care Critically Ill Patient Diagnosis/Problems Diagnosis/Problems (1) Atrial fibrillation with RVR Status: Acute (2) Acute HFrEF (heart failure with reduced ejection fraction) Status: Acute (3) NSTEMI (non-ST elevation myocardial infarction) Status: Acute (4) Hypokalemia Status: Acute (5) Alcohol abuse Status: Chronic (6) COPD (chronic obstructive pulmonary disease) Status: Chronic (7) Thoracic aortic aneurysm (TAA) Status: Acute Qualifiers: Presence of rupture: without rupture Qualified Codes: I71.2 - Thoracic aortic aneurysm, without rupture (8) Marijuana abuse Status: Chronic HAY YOST MD Dec 15, 2021 15:23
[2021-12-15] MEDS: dilTIAZem DRIP PRE-MIX 125 ML IV SCH (17:55)
[2021-12-15] MEDS: RIVAROXABAN 20 MG TABLET (XARELTO) PO SCH (18:05)
[2021-12-15] MEDS ORDERED: AMIODARONE 200 MG (CORDARONE) TAB ONE (19:56)
[2021-12-15] MEDS: AMIODARONE 200 MG (CORDARONE) TAB PO SCH (20:12)
[2021-12-15] MEDS: ROSUVASTATIN 20 MG (CRESTOR) TABLET PO SCH (20:12)
[2021-12-16 04:04] LABS: HEMOGLOBIN 16.1 g/dL (13.3-17.7)
[2021-12-16 04:05] LABS: MEAN PLATELET VOLUME 10.4 fL (9.0-12.2); WHITE BLOOD COUNT 8.6 10^3/uL (4.3-11.0)
[2021-12-16 04:10] LABS: ALBUMIN 3.1 GM/DL (3.2-4.5); POTASSIUM 4.1 MMOL/L (3.6-5.0)
[2021-12-16 04:11] LABS: CALCIUM 8.2 MG/DL (8.5-10.1)
[2021-12-16 04:12] LABS: TOTAL PROTEIN 5.4 GM/DL (6.4-8.2)
[2021-12-16 04:14] LABS: BILIRUBIN,TOTAL 1.4 MG/DL (0.1-1.0)
[2021-12-16 04:15] LABS: PHOSPHORUS 2.7 MG/DL (2.3-4.7)
[2021-12-16 04:16] LABS: CREATININE SERUM 0.74 MG/DL (0.60-1.30); MAGNESIUM 1.9 MG/DL (1.6-2.4)
[2021-12-16 04:18] LABS: BILIRUBIN,DIRECT 0.7 MG/DL (0.0-0.3); BILIRUBIN,INDIRECT 0.7 MG/DL
[2021-12-16] MEDS: POTASSIUM CL 10MEQ/50ML IVPB 50 ML IV SCH (05:10)
[2021-12-16] MEDS: NS IV 1000 ML 1,000 ML IV SCH (05:10)
[2021-12-16] MEDS: KCL 20 MEQ TAB (K-DUR) PO SCH (05:11)
[2021-12-16] MEDS: MAGNESIUM 1 GM/100 ML IVPB 100 ML IV SCH (05:11)
--- NOTE | 2021-12-16 08:25 | Cardiology Progress Note ---
Progress Note-Cardiology Events since last exam Date Seen by Provider: Dec 16, 2021 Time Seen by Provider: 08:24 Events since last exam I am following him due to NSTEMI that was treated with 1 drug-eluting stent to the left circumflex coronary artery, acute heart failure with reduced ejection fraction due to nonischemic cardiomyopathy and atrial fibrillation. He received intravenous amiodarone overnight after an unsuccessful attempt at cardioversion on 12/15. I also started him on oral amiodarone. He he had insomnia last night. He denies chest discomfort, dyspnea, palpitations, syncope, or ankle edema. Certain portions of this document may have been dictated utilizing voice recognition technology. Inherent to this technology, typographical and grammatical errors may exist. As much as I am diligent to identify and correct these mistakes, some errors may remain in the document. Vitals Last set of Vitals Signs Vital Signs 12/10/21 12/15/21 12/16/21 12/16/21 16:39 09:34 08:00 10:00 Temp 37.0 Pulse 63 Resp 17 B/P (MAP) 129/99 (109) Pulse Ox 95 O2 Delivery Room Air O2 Flow Rate 13.00 FiO2 32 Labs Labs Laboratory Tests 12/16/21 03:55 Exam Vital Signs Vital Signs Date Time Temp Pulse Resp B/P (MAP) Pulse Ox O2 Delivery O2 Flow Rate FiO2 12/16/21 10:00 63 17 129/99 (109) 95 Room Air 12/16/21 08:00 37.0 12/15/21 09:34 13.00 12/10/21 16:39 32 Physical Exam General: Alert. No acute distress. Eye: No xanthelasma. HENT: Normocephalic. Neck: Jugular venous pressure does not appear elevated. Respiratory: Lungs are clear to auscultation. Respirations are non-labored. Breath sounds are equal. Symmetrical chest wall expansion. Cardiovascular: Regular rate and rhythm. No murmur. No gallop. No edema. Gastrointestinal: Soft. Normal bowel sounds. Skin: Warm. Dry. Neurologic: Alert and oriented to person, place, time. Cranial nerves 3-11 grossly intact. Psychiatric: Cooperative. Appropriate mood & affect. Labs Laboratory Tests Test 12/16/21 03:55 Range/Units White Blood Count 8.6 4.3-11.0 10^3/uL Red Blood Count 5.08 4.30-5.52 10^6/uL Hemoglobin 16.1 13.3-17.7 g/dL Hematocrit 48 40-54 % Mean Corpuscular Volume 94 80-99 fL Mean Corpuscular Hemoglobin 32 25-34 pg Mean Corpuscular Hemoglobin Concent 34 32-36 g/dL Red Cell Distribution Width 14.6 H 10.0-14.5 % Platelet Count 138 130-400 10^3/uL Mean Platelet Volume 10.4 9.0-12.2 fL Percent Immature Platelet Fraction 5.4 0.0-7.6 % Sodium Level 132 L 135-145 MMOL/L Potassium Level 4.1 3.6-5.0 MMOL/L Chloride Level 100 98-107 MMOL/L Carbon Dioxide Level 23 21-32 MMOL/L Anion Gap 9 5-14 MMOL/L Blood Urea Nitrogen 16 7-18 MG/DL Creatinine 0.74 0.60-1.30 MG/DL Estimat Glomerular Filtration Rate 100 BUN/Creatinine Ratio 22 Glucose Level 110 H 70-105 MG/DL Calcium Level 8.2 L 8.5-10.1 MG/DL Phosphorus Level 2.7 2.3-4.7 MG/DL Magnesium Level 1.9 1.6-2.4 MG/DL Total Bilirubin 1.4 H 0.1-1.0 MG/DL Direct Bilirubin 0.7 H 0.0-0.3 MG/DL Indirect Bilirubin 0.7 MG/DL Aspartate Amino Transf (AST/SGOT) 46 H 5-34 U/L Alanine Aminotransferase (ALT/SGPT) 61 H 0-55 U/L Alkaline Phosphatase 55 40-136 U/L Total Protein 5.4 L 6.4-8.2 GM/DL Albumin 3.1 L 3.2-4.5 GM/DL Diagnosis/Problems Diagnosis/Problems (1) Acute HFrEF (heart failure with reduced ejection fraction) Status: Acute Assessment & Plan: This appears to be due to nonischemic cardiomyopathy. He is on metoprolol succinate. I started him on low-dose lisinopril on 12/12 but I stopped this on 1012 due to low blood pressure. I stopped IV Lasix. I started him on a low-dose of oral Lasix on 12/13. I will attempt to titrate his guideline directed medical therapy as an outpatient. For the time being, his blood pressure may be too low for DON inhibitor, ARB, aldosterone antagonist or Entresto. I have asked the nursing staff to get him a follow-up appointment with me in the office in 2 weeks. From a cardiac standpoint, he can be discharged home today. (2) Paroxysmal atrial fibrillation Assessment & Plan: He has atrial fibrillation of unknown duration. I started him on rivaroxaban on 12/14. He had a transesophageal echocardiogram on 12/15/2021 that did not show any evidence of left atrial thrombus. He had a cardioversion on 12/15 that was not successful. He was then started on intravenous amiodarone infusion. He had another cardioversion on 12/16 that was successful. He will need to remain on oral amiodarone. My plan will be to taper amiodarone following discharge. (3) Non-ST elevation myocardial infarction (NSTEMI), initial care episode Assessment & Plan: This appears to have been due to significant stenosis in the left circumflex system. This was treated with 1 drug-eluting stent in a staged fashion. He should continue aspirin until the time of discharge. At the time of discharge he will continue on clopidogrel, metoprolol and intensive dose statin medication. Since he will be on rivaroxaban for atrial fibrillation, I suggest he stop aspirin at the time of discharge. (4) Cardiomyopathy Assessment & Plan: He has single-vessel disease would suggest that he does not have ischemic cardiomyopathy. 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 I will slowly start him on the appropriate guideline directed medical therapy. In light of the myocardial infarction coupled with severe cardiomyopathy, we may also want to consider a LifeVest prior to discharge. I explained the device to him and his sister and he is not opposed. His lack of insurance may be an issue but the company can often help with this. I did order the LifeVest on 12/13 and c ontacted the parking enforcement officer. As above, I will stop the lisinopril due to low blood pressures. We will continue metoprolol succinate. The representatives from the LifeVest company are in contact with the patient. He does not need to wait in the hospital to get the device. They can bring it to his house if he decides to go ahead and get the device. (5) Coronary artery disease with unstable angina pectoris Assessment & Plan: As above. (6) Mitral regurgitation Assessment & Plan: His echocardiogram showed moderate mitral regurgitation. This may be functional regurgitation related to the left ventricular dilatation and may improve as we treat his cardiomyopathy. This condition will need to follow-up followed longitudinally. There is no indication for mitral valve intervention at this time. (7) Thoracic aortic aneurysm without rupture Assessment & Plan: His chest CT from the outside facility showed a mild thoracic aortic aneurysm and his echocardiogram from 12/12 also showed mild dilatation of the aortic root. This will need to be followed longitudinally. He is now on beta-mike. (8) Emphysema lung Assessment & Plan: His chest CT from the outside facility shows mild emphysema. This may be explaining at least some of his shortness of breath. The hospitalist will be managing this condition. He needs to be encouraged to quit smoking. (9) Alcohol dependence Assessment & Plan: From his description, he has anywhere from 2-4 alcoholic drinks per day. He denies any previous history of withdrawal symptoms. He will need to be watched closely for any signs of withdrawal. As above, he may have some tachycardia related to early withdrawal. (10) Marijuana smoker Assessment & Plan: He needs to be encouraged to quit smoking. ZARI BARROW JR, MD Dec 16, 2021 08:25
[2021-12-16] MEDS ORDERED: RIVA20TA2 PO (08:29)
[2021-12-16] MEDS ORDERED: ROSU20TA32 PO (08:33)
[2021-12-16] MEDS ORDERED: MTP25TSR PO (08:33)
[2021-12-16] MEDS ORDERED: CLOP75TA28 PO (08:33)
[2021-12-16] MEDS ORDERED: DIGO125T18 PO (08:33)
[2021-12-16] MEDS ORDERED: NITR0.4T42 SL (08:33)
[2021-12-16] MEDS ORDERED: AMIO400T5 PO (08:33)
[2021-12-16] MEDS ORDERED: FURO20TA4 PO (08:33)
--- NOTE | 2021-12-16 08:45 | Cardiac Procedure Note-[facility] ---
Cardiology Procedures Date of Procedure 12/16/21 DIRECT-CURRENT CARDIOVERSION INDICATION: Persistent atrial fibrillation. PROCEDURE: After informed consent and in the fasting state, deep sedation was provided by the anesthesia department. I subsequently performed direct-current cardioversion using synchronized biphasic shocks in a stepwise fashion starting with 150 J and then 200 J. On the second shock, the patient converted to sinus rhythm with intermittent wandering atrial pacemaker and intermittent atrial fibrillation. IMPRESSION: 1. Status post successful direct-current cardioversion with a final biphasic synchronized energy level of 200 J with conversion of atrial fibrillation to sinus rhythm with intermittent wandering atrial pacemaker and intermittent atrial fibrillation. Certain portions of this document may have been dictated utilizing voice recognition technology. Inherent to this technology, typographical and grammatical errors may exist. As much as I am diligent to identify and correct these mistakes, some errors may remain in the document. ZARI BARROW JR, MD Dec 16, 2021 08:45
--- NOTE | 2021-12-16 08:49 | Tele-ICU Progress Note ---
Subjective Date Seen by a Provider: Dec 16, 2021 Time Seen by a Provider: 08:48 Subjective/Events-last exam . (Tele-ICU Physician , Progress Note ) Available chart/ vitals / labs / Images reviewed Video assessment done using teleICU camera, rest of exam as per RN Discussed with RN Events overnight : Afebrile NEG 6 L A/P PAF - unsuccessful attempted direct-current cardioversion 01/15 --> amio gtt started -cardioversion 01/16 - sinus now - AC as pe cards Acute resp failure - sedated after anaestesia 12/15 ( 2 versed , 160 propofol) recovered weel to RA when Awken today recived 100 propofol - still sleepy on FM - follow - anaestesiology in room - ( Hypoxia mild with cough since presentation - 1 l NC) non-ICM - ECHO 12/12/21 - EF 25% -moderate MR -Life-vest ordered CAD -(12/14) CCL w/anesthesia: BMS to mid L Cx - COPD -as per records - CT in outpatient settings with emphysema - will change nebs to PRN - might help with HR - PER PCP IF NEEDS TO BE STARTED ON LABA ETOH use -thiamine , folate , CIWA - scoring low DNR as per patient decision Lines : no , (Central Line Necessity Reviewed) Noe: void OG: Nutrition: po Analgesia: Anxiety/ delirium VTE Prophylaxis: lovenox full Stress Ulcer Prophylaxis: na Plans in collaboration with bedside consultants and IM MDs. Discussed with RN to reach out if any questions or concerns A total of 15 minutes of critical care time was devoted to this patient today, required to treat and/or prevent further deterioration of critical care condition ( as above ) . I am remotely monitoring this patient from another state. I am unable to do the bedside exam, and history/physical and pertinent information is taken from other notes in the computer and bedside staff. I cannot take responsibility for the accuracy of this information. . Sepsis Event Evaluation Height, Weight, BMI Height: '" Weight: lbs. oz. kg; 19.81 BMI Method: Exam Exam Patient acknowledged, consented, and participated in this virtual visit which was conducted using real time audio/video Vital Signs Date Time Temp Pulse Resp B/P (MAP) Pulse Ox O2 Delivery O2 Flow Rate FiO2 12/16/21 08:08 94 Room Air 12/16/21 08:00 94 14 116/106 (109) 96 Room Air 12/16/21 08:00 37.0 12/16/21 07:00 80 17 91/80 (84) 91 Room Air 12/16/21 07:00 77 12/16/21 06:00 91 20 104/94 (97) 92 Room Air 12/16/21 05:00 93 22 122/114 (117) 93 Room Air 12/16/21 04:00 94 18 110/99 (103) 95 Room Air 12/16/21 03:51 94 Room Air 12/16/21 03:50 36.2 Room Air 12/16/21 03:00 93 24 147/113 (124) 96 Room Air 12/16/21 02:37 94 Room Air 12/16/21 02:00 98 15 110/99 (103) 94 Room Air 12/16/21 01:00 89 23 115/106 (109) 93 Room Air 12/16/21 00:52 103 12/16/21 00:16 95 Room Air 12/16/21 00:13 36.6 Room Air 12/16/21 00:00 103 21 113/87 (96) 96 Room Air 12/15/21 23:00 98 26 115/100 (105) 94 Room Air 12/15/21 22:00 97 16 106/96 (99) 95 Room Air 12/15/21 21:00 96 23 122/94 (103) 95 Room Air 12/15/21 20:00 95 22 83/53 (63) 96 Room Air 12/15/21 20:00 97 Room Air 12/15/21 19:00 86 12/15/21 19:00 86 19 125/95 (105) 95 Room Air 12/15/21 19:00 36.5 Room Air 12/15/21 18:00 106 11 101/84 (90) 93 Room Air 12/15/21 17:00 109 9 116/85 (95) 95 Room Air 12/15/21 16:00 Room Air 12/15/21 16:00 105 21 120/104 (109) 90 Room Air 12/15/21 15:00 111 20 87/70 (76) 94 Room Air 12/15/21 14:00 86 20 115/86 (96) 95 Room Air 12/15/21 13:00 112 12 110/93 (99) 94 Room Air 12/15/21 13:00 124 12/15/21 12:00 105 8 99/85 (90) 95 Room Air 12/15/21 12:00 Room Air 12/15/21 11:55 36.2 12/15/21 11:00 89 11 92/83 (86) 95 Room Air 12/15/21 10:00 113 16 83/71 (75) 95 Room Air 12/15/21 09:34 100 OxyMask 13.00 12/15/21 09:00 168 20 98/84 (89) 97 Room Air I & O 12/16/21 07:00 Intake Total 920 ml Output Total 2100 ml Balance -1180 ml Height & Weight Height: '" Weight: lbs. oz. kg; 19.81 BMI Method: General Appearance: No Apparent Distress, WD/WN HEENT: Pharynx Normal, Moist Mucous Membranes Neck: Full Range of Motion, Normal Inspection, Non Tender, Supple Respiratory: No Respiratory Distress, Decreased Breath Sounds Cardiovascular: No Murmur, Irregularly Irregular, Tachycardia Capillary Refill: Less Than 3 Seconds Gastrointestinal: normal bowel sounds, non tender, soft Extremity: Normal Inspection, No Pedal Edema Neurologic/Psychiatric: Alert, Normal Mood/Affect Skin: Normal Color, Warm/Dry Results Lab Laboratory Tests 12/15/21 04:48 12/16/21 03:55 Assessment/Plan Assessment/Plan 1 JOSE CUMMINS MD Dec 16, 2021 08:49
[2021-12-16] MEDS ORDERED: proPOfol 200 MG/20 ML (DIPRIVAN) VIAL IV ONE (09:04)
[2021-12-16] MEDS: THIAMINE 100 MG (VITAMIN B-1) TAB PO SCH (09:43)
[2021-12-16] MEDS: DIGOXIN 0.125 MG (LANOXIN) TAB PO SCH (09:43)
[2021-12-16] MEDS: AMIODARONE 200 MG (CORDARONE) TAB PO SCH (09:43)
[2021-12-16] MEDS: CLOPIDOGREL 75 MG (PLAVIX) TABLET PO SCH (09:43)
[2021-12-16] MEDS: ASPIRIN E.C. 81 MG (ECOTRIN) TAB PO SCH (09:44)
[2021-12-16] MEDS: FOLIC ACID 1 MG TAB PO SCH (09:44)
[2021-12-16] MEDS: guaiFENesin (MUCINEX) 600 MG TAB PO SCH (09:44)
[2021-12-16] MEDS: FUROSEMIDE 20 MG (LASIX) TAB PO SCH (09:44)
[2021-12-16] MEDS ORDERED: NS IV 1000 ML 1,000 ML IV SCH (13:15)
[2021-12-16] MEDS ORDERED: PATIENT MAY USE OWN MEDS, ALL PO SCH (13:15)
--- NOTE | 2021-12-16 18:51 | Anesthesia-General Post-Op ---
MAC Patient Condition Mental Status/LOC: Same as Preop Cardiovascular: Satisfactory Nausea/Vomiting: Absent Respiratory: Satisfactory Pain: Controlled Complications: Absent Post Op Complications Complications None Follow Up Care/Instructions Patient Instructions None needed. Anesthesiology Discharge Order Discharge Order Patient is doing well, no complaints, stable vital signs, no apparent adverse anesthesia problems. No complications reported per nursing. RUFUS SPRINGER CRNA Dec 16, 2021 18:51
--- NOTE | 2021-12-16 20:36 | Discharge Summary ---
Discharge Summary Hospital Course Problems/Dx: (1) Acute HFrEF (heart failure with reduced ejection fraction) Status: Acute (2) Paroxysmal atrial fibrillation (3) Non-ST elevation myocardial infarction (NSTEMI), initial care episode (4) Cardiomyopathy (5) Coronary artery disease with unstable angina pectoris (6) Mitral regurgitation (7) Thoracic aortic aneurysm without rupture (8) Emphysema lung (9) Alcohol dependence (10) Marijuana smoker Hospital Course Date of Admission: Dec 10, 2021 at 14:25 Admission Diagnosis : Family Physician/Provider: No,Local Physician Date of Discharge: 12/16/21 Discharge Diagnosis: [ ] Hospital Course: [ ] Labs and Pending Lab Test: Laboratory Tests 12/16/21 03:55: White Blood Count 8.6, Red Blood Count 5.08, Hemoglobin 16.1, Hematocrit 48, Mean Corpuscular Volume 94, Mean Corpuscular Hemoglobin 32, Mean Corpuscular Hemoglobin Concent 34, Red Cell Distribution Width 14.6H, Platelet Count 138, Mean Platelet Volume 10.4, Percent Immature Platelet Fraction 5.4, Sodium Level 132L, Potassium Level 4.1, Chloride Level 100, Carbon Dioxide Level 23, Anion Gap 9, Blood Urea Nitrogen 16, Creatinine 0.74, Estimat Glomerular Filtration Rate 100, BUN/Creatinine Ratio 22, Glucose Level 110H, Calcium Level 8.2L, Phosphorus Level 2.7, Magnesium Level 1.9, Total Bilirubin 1.4H, Direct Bilirubin 0.7H, Indirect Bilirubin 0.7, Aspartate Amino Transf (AST/SGOT) 46H, Alanine Aminotransferase (ALT/SGPT) 61H, Alkaline Phosphatase 55, Total Protein 5.4L, Albumin 3.1L Microbiology 12/10/21 MRSA Screen - Final, Complete MRSA not isolated Home Meds Active Furosemide 20 Mg Tablet 20 Mg PO DAILY Metoprolol Succinate 25 Mg Tab.er.24h 25 Mg PO BID Nitroglycerin 0.4 Mg Tab.subl 0.4 Mg SL NEEDED PRN Rosuvastatin Calcium 20 Mg Tablet 20 Mg PO HS Digox (Digoxin) 125 Mcg (0.125 Mg) Tablet 0.125 Mg PO DAILY Amiodarone HCl 400 Mg Tablet 400 Mg PO BID Clopidogrel (Clopidogrel Bisulfate) 75 Mg Tablet 75 Mg PO DAILY Xarelto Tablet (Rivaroxaban) 20 Mg Tablet 20 Mg PO DAILY@1700 Take with largest meal of the day. Reported Vitamin D3 (Cholecalciferol (Vitamin D3)) 50 Mcg (2000 Unit) Capsule 100 Mcg PO DAILY Assessment/Pt Instructions See instructions Discharge Planning: >30 minutes discharge planning Discharge Instructions Discharge Diet: Low Sodium Diet Activity as Tolerated: Yes Consultations Cardiology Discharge Physical Examination Vital Signs Vital Signs Date Time Temp Pulse Resp B/P (MAP) Pulse Ox O2 Delivery O2 Flow Rate FiO2 12/16/21 14:11 12/16/21 13:00 68 14 99 Room Air 12/16/21 12:00 36.5 12/15/21 09:34 13.00 12/10/21 16:39 32 Allergies: Coded Allergies: No Allergy Information Available (Unverified , 12/10/21) Discharge Summary Date of Admission Dec 10, 2021 at 14:25 Date of Discharge Dec 16, 2021 at 14:10 Discharge Date: Dec 16, 2021 Discharge Time: 14:10 Consults/Procedures Consulations Cardiology Procedures Left heart cath with coronary stenting, ALFONSO cardioversion Discharge Diagnosis AFib with RVR NSTEMI CAD Acute HFrEF Thoracic aortic aneurysm Elevated LFTs Hypokalemia Alcohol dependence COPD Marijuana abuse (1) Acute HFrEF (heart failure with reduced ejection fraction) Status: Acute (2) Paroxysmal atrial fibrillation (3) Non-ST elevation myocardial infarction (NSTEMI), initial care episode (4) Cardiomyopathy (5) Coronary artery disease with unstable angina pectoris (6) Mitral regurgitation (7) Thoracic aortic aneurysm without rupture (8) Emphysema lung (9) Alcohol dependence (10) Marijuana smoker HAY YOST MD Dec 16, 2021 20:35
== END 2021-12-16 14:10 | disposition home or self-care (01) | DRG 248 ==
LOC: ICU 14:25
PROVIDERS: ADMIT Family Medicine; ATTEND Internal Medicine
PROC: 4A023N7 Measurement of Cardiac Sampling and Pressure, Left Heart, Percutaneous Approach (ICD-10-PCS; principal; 2021-12-12)
PROC: B2111ZZ Fluoroscopy of Multiple Coronary Arteries using Low Osmolar Contrast (ICD-10-PCS; 2021-12-12)
PROC: 02JY3ZZ Inspection of Great Vessel, Percutaneous Approach (ICD-10-PCS; 2021-12-12)
PROC: 02703DZ Dilation of Coronary Artery, One Artery with Intraluminal Device, Percutaneous Approach (ICD-10-PCS; 2021-12-14)
PROC: 5A2204Z Restoration of Cardiac Rhythm, Single (ICD-10-PCS; 2021-12-16)
DX: I21.4 Non-ST elevation (NSTEMI) myocardial infarction (principal); I50.21 Acute systolic (congestive) heart failure; E87.1 Hypo-osmolality and hyponatremia; I42.0 Dilated cardiomyopathy; I42.6 Alcoholic cardiomyopathy; I42.8 Other cardiomyopathies; I48.19 Other persistent atrial fibrillation; I25.110 Atherosclerotic heart disease of native coronary artery with unstable angina pectoris; I48.0 Paroxysmal atrial fibrillation; J43.9 Emphysema, unspecified; F10.20 Alcohol dependence, uncomplicated; E87.6 Hypokalemia; I34.0 Nonrheumatic mitral (valve) insufficiency; I71.20 Thoracic aortic aneurysm, without rupture, unspecified; F12.10 Cannabis abuse, uncomplicated; G47.33 Obstructive sleep apnea (adult) (pediatric); R09.02 Hypoxemia; R05.9 Cough, unspecified
CPT/HCPCS: 36415; 71045; 71046; 80048; 80053; 80061; 80076; 83036; 83735; 84100; 84484; 85027; 86803; 87081; 87522; 93005; 93306; 93312; 93320; 93325; 93458; 94640; 94760

== ENCOUNTER → 2022-03-15 | Outpatient (CLI) | payer MEDICARE ==
[~2022-03-15] MED LIST: AMIO400T5 PO; CHOL10007 PO; CHOL20002 PO; CLOP75TA28 PO; DIGO125T18 PO; FURO20TA4 PO; MTP25TSR PO; NITR0.4T42 SL; RIVA20TA2 PO; ROSU20TA32 PO; [UNRECOGNIZED DRUG - OTHER] PO; [UNRECOGNIZED DRUG - OTHER] PO; [UNRECOGNIZED DRUG - OTHER] PO
== END ==
LOC: CARD 13:28
PROVIDERS: ATTEND Internal Medicine Cardiovascular Disease
DX: I08.0 Rheumatic disorders of both mitral and aortic valves (principal); I42.9 Cardiomyopathy, unspecified
CPT/HCPCS: 93306

== ENCOUNTER 2022-10-15 11:05 | Observation (INO) | payer MEDICARE, MEDICAID ==
[~2022-10-15] VITALS: Ht 184 cm; Wt 61.2 kg
[~2022-10-15 11:05] MED LIST changes: -ROSU20TA32 PO; +ROSU20TA73 PO
[2022-10-15] MEDS ORDERED: NS IV 500 ML 500 ML ONE (11:27)
--- NOTE | 2022-10-15 11:27 | ED Chest Pain ---
General Chief Complaint: Cardiac/General Problems Stated Complaint: RACING HEART/SOA/ANXIETY Source: patient Exam Limitations: no limitations History of Present Illness Date Seen by Provider: Oct 15, 2022 Time Seen by Provider: 11:16 Initial Comments Here with report of racing heart and sweating on his back that started yesterday. The sweating was associated with pounding chest pain that lasted for a few minutes and then went away but he has had persistent racing heart. Has known history of atrial fibrillation and has had previous A-fib with RVR event. He is on Xarelto but denies taking any other medicines because of side effects. It appears he was previously on amiodarone and digoxin. He follows with Dr Hola gale for cardiology after seeing Dr. Villagomez initially. Denies nausea, vomiting, sore throat or fever. Does have some mild cough with the palpitations. Has had some shortness of breath with the palpitations. 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: Yes NTG SL MILLING GENERAL SUPERINTENDENT: No Associated Symptoms: No abdominal pain, No back pain, No fever/chills, No nausea/vomiting; shortness of breath, weakness Allergies and Home Medications Allergies Coded Allergies: No Allergy Information Available (Unverified , 12/10/21) Patient Home Medication List Home Medication List Reviewed: Yes Amiodarone HCl (Amiodarone HCl) 400 Mg Tablet, 400 MG PO BID Prescribed by: ZARI VILLAGOMEZ JR, MD on 12/16/21832 Cholecalciferol (Vitamin D3) (Vitamin D3) 50 Mcg (2000 Unit) Capsule, 100 MCG PO DAILY, (Reported) Entered as Reported by: CRISTINA CANTU on 12/12/21948 Clopidogrel Bisulfate (Clopidogrel) 75 Mg Tablet, 75 MG PO DAILY Prescribed by: ZARI VILLAGOMEZ JR, MD on 12/16/21832 Digoxin (Digox) 125 Mcg (0.125 Mg) Tablet, 0.125 MG PO DAILY Prescribed by: ZARI VILLAGOMEZ JR, MD on 12/16/21832 Furosemide (Furosemide) 20 Mg Tablet, 20 MG PO DAILY Prescribed by: ZARI VILLAGOMEZ JR, MD on 12/16/21832 Metoprolol Succinate (Metoprolol Succinate) 25 Mg Tab.er.24h, 25 MG PO BID Prescribed by: ZARI VILLAGOMEZ JR, MD on 12/16/21832 Nitroglycerin (Nitroglycerin) 0.4 Mg Tab.subl, 0.4 MG SL NEEDED PRN for CHEST PAIN (ANGINA) Prescribed by: ZARI VILLAGOMEZ JR, MD on 12/16/21832 Rivaroxaban (Xarelto Tablet) 20 Mg Tablet, 20 MG PO DAILY@1700 Prescribed by: ZARI VILLAGOMEZ JR, MD on 12/16/21828 Rosuvastatin Calcium (Rosuvastatin Calcium) 20 Mg Tablet, 20 MG PO HS Prescribed by: ZARI VILLAGOMEZ JR, MD on 12/16/21832 Review of Systems Review of Systems Constitutional: No chills, No fever EENTM: Nose Congestion (Chronic); No Throat Pain Respiratory: Cough, SOA With Exertion Cardiovascular: See HPI Gastrointestinal: See HPI Genitourinary: No Symptoms Reported Musculoskeletal: No back pain, No muscle pain Skin: no symptoms reported Psychiatric/Neurological: No Symptoms Reported Past Gxrxpfg-Wtbiuv-Nulvlp Hx Patient Social History Tobacco Use?: No Substance use?: Yes Substance type: Marijuana Substance frequency: Daily Alcohol Use?: Yes Alcohol type: Hard Liquor Alcohol Frequency: Couple times a week Past Medical History Surgeries: Yes Coronary Stent Respiratory: Yes COPD Currently Using CPAP: No Currently Using BIPAP: No Cardiac: Yes Aneurysm, Irregular Heartbeat Family Medical History Reviewed Nursing Family Hx No Pertinent Family Hx Physical Exam Vital Signs Vital Signs - First Documented 10/15/22 11:13 Temp 36.8 Pulse 153 Resp 14 B/P (MAP) 131/103 (112) Pulse Ox 96 O2 Delivery Room Air Capillary Refill : Height, Weight, BMI Height: '" Weight: lbs. oz. kg; 19.81 BMI Method: General Appearance: No Apparent Distress, Thin HEENT: PERRL/EOMI, Pharynx Normal Neck: Non Tender, Supple Respiratory: Lungs Clear, Normal Breath Sounds Cardiovascular: Irregularly Irregular, Tachycardia Gastrointestinal: Non Tender, Soft Extremity: Normal Range of Motion, Non Tender, No Calf Tenderness, No Pedal Edema Neurologic/Psychiatric: Alert, Oriented x3 Skin: Normal Color, Warm/Dry Progress/Results/Core Measures Results/Orders Lab Results Laboratory Tests Test 10/15/22 11:22 Range/Units White Blood Count 8.5 4.3-11.0 10^3/uL Red Blood Count 4.81 4.30-5.52 10^6/uL Hemoglobin 15.4 13.3-17.7 g/dL Hematocrit 46 40-54 % Mean Corpuscular Volume 97 80-99 fL Mean Corpuscular Hemoglobin 32 25-34 pg Mean Corpuscular Hemoglobin Concent 33 32-36 g/dL Red Cell Distribution Width 14.6 H 10.0-14.5 % Platelet Count 165 130-400 10^3/uL Mean Platelet Volume 11.7 9.0-12.2 fL Immature Granulocyte % (Auto) 0 % Neutrophils (%) (Auto) 82 H 42-75 % Lymphocytes (%) (Auto) 13 12-44 % Monocytes (%) (Auto) 4 0-12 % Eosinophils (%) (Auto) 0 0-10 % Basophils (%) (Auto) 1 0-10 % Neutrophils # (Auto) 6.9 1.8-7.8 10^3/uL Lymphocytes # (Auto) 1.1 1.0-4.0 10^3/uL Monocytes # (Auto) 0.4 0.0-1.0 10^3/uL Eosinophils # (Auto) 0.0 0.0-0.3 10^3/uL Basophils # (Auto) 0.1 0.0-0.1 10^3/uL Immature Granulocyte # (Auto) 0.0 0.0-0.1 10^3/uL Prothrombin Time 28.5 H 12.2-14.7 SEC INR Comment 2.7 H 0.8-1.4 Activated Partial Thromboplast Time 57 H 24-35 SEC Sodium Level 136 135-145 MMOL/L Potassium Level 4.5 3.6-5.0 MMOL/L Chloride Level 103 98-107 MMOL/L Carbon Dioxide Level 21 21-32 MMOL/L Anion Gap 12 5-14 MMOL/L Blood Urea Nitrogen 10 7-18 MG/DL Creatinine 0.80 0.60-1.30 MG/DL Estimat Glomerular Filtration Rate 98 BUN/Creatinine Ratio 13 Glucose Level 118 H 70-105 MG/DL Calcium Level 9.3 8.5-10.1 MG/DL Corrected Calcium 9.2 8.5-10.1 MG/DL Magnesium Level 2.1 1.6-2.4 MG/DL Total Bilirubin 1.2 H 0.1-1.0 MG/DL Aspartate Amino Transf (AST/SGOT) 31 5-34 U/L Alanine Aminotransferase (ALT/SGPT) 26 0-55 U/L Alkaline Phosphatase 68 40-136 U/L Myoglobin 44.2 10.0-92.0 NG/ML Troponin I < 0.028 <0.028 NG/ML C-Reactive Protein High Sensitivity 0.14 0.00-0.50 MG/DL B-Type Natriuretic Peptide 3721.1 H <100.0 PG/ML Total Protein 7.2 6.4-8.2 GM/DL Albumin 4.1 3.2-4.5 GM/DL My Orders Orders - JOSE JOHN MD Ekg Tracing (10/15/22 11:17) Cbc With Automated Diff (10/15/22 11:) Magnesium (10/15/22 11:22) Chest 1 View, Ap/Pa Only (10/15/22 11:22) Ekg Tracing (10/15/22 11:22) Comprehensive Metabolic Panel (10/15/22 11:) Myoglobin Serum (10/15/22 11:) Protime With Inr (10/15/22 11:22) Partial Thromboplastin Time (10/15/22 11:22) O2 (10/15/22 11:22) Monitor-Rhythm Ecg Trace Only (10/15/22 11:) Lipid Panel (10/16/22 06:00) Ed Iv/Invasive Line Start (10/15/22 11:22) Troponin I Marshall (10/15/22 11:22) Diltiazem Drip Pre-Mix (Diltiazem Drip P (10/15/22 11:30) Diltiazem Injection (Diltiazem Injection (10/15/22 11:30) Ns Iv 500 Ml (Sodium Chloride 0.9%) (10/15/22 11:30) Ns Iv 500 Ml (Sodium Chloride 0.9%) (10/15/22 11:27) Diltiazem Er 24 Hr Capsule (Diltiazem Er (10/15/22 12:45) Bnp Marshall (10/15/22 12:39) Hs C Reactive Protein (10/15/22 12:39) Furosemide Injection (Furosemide Injec (10/15/22 14:30) Medications Given in ED Current Medications Medications Dose Ordered Sig/Tomasz Route Start Time Stop Time Status Last Admin Dose Admin Diltiazem HCl 15 mg ONCE ONCE IVP 10/15/22 11:30 10/15/22 11:31 DC 10/15/22 11:32 15 MG Diltiazem HCl 120 mg ONCE ONCE PO 10/15/22 12:45 10/15/22 12:46 DC 10/15/22 12:38 120 MG Sodium Chloride 500 ml @ 0 mls/hr Q0M ONCE IV 10/15/22 11:30 10/15/22 11:31 DC 10/15/22 11:33 999 MLS/HR Vital Signs/I&O 10/15/22 10/15/22 10/15/22 11:13 11:32 11:33 Temp 36.8 Pulse 153 146 146 Resp 14 B/P (MAP) 131/103 (112) 131/103 131/103 Pulse Ox 96 O2 Delivery Room Air Progress Progress Note : Progress Note Seen and evaluated. IV, labs including CBC, CMP, troponin, magnesium and coags ordered. We will get chest x-ray and EKG. Monitor shows A-fib with rapid ventricular response at rate 120s to 160s. Confirmed with EKG. We will initiate Cardizem bolus at 15 mg IV and initiate drip per protocol. Patient has had aspirin today and he has had his Xarelto today as well per report. Monitor patient. Differential diagnosis includes acute IA, atrial fibrillation with rapid ventricular response which is an acute exacerbation of chronic condition, electrolyte abnormality, dehydration Reviewed and CBC is normal. Chest x-ray reviewed by me and there is haziness to the right lower lobe of unsure etiology atelectasis, edema versus infiltrate on my interpretation. This may be chronic lung disease as well. CMP grossly normal with slightly elevated glucose and slightly elevated total bilirubin. Troponin and myoglobin are negative. Coags consistent with Xarelto use. I did discuss the case with Dr. Lance, statistical reporting analyst on-call. We reviewed current findings. His heart rate improved with bolus and has maintained 60s to the 90s on drip at 5 mg/h. Given his rapid improvement of rate control, consideration for outpatient management. We will give Cardizem CD 120 mg p.o. now and monitor him for 2 hours on the drip and then take him off that. If rate control can be maintained with oral medication, he can continue outpatient evaluation and has appointment with Dr Morales on 10/18/2022. Dr. Lance the patient in the ED. I have added BNP and CRP to help define the x-ray finding a little better. All of this was discussed with the patient who agrees. Monitor patient. 1428: BNP is grossly elevated at greater than 3700. CRP is negative. Chest x-ray findings likely related to heart failure. I did discuss the case with Dr. Lance and he is recommending admission with cardiac echo in the morning as well as Lasix 40 mg IV now and twice daily as well as serial troponins. We will continue Xarelto. Patient has been rate controlled on Cardizem drip which we will stop now and he has had his oral Cardizem CD. We will continue 120 mg twice daily per previous discussion. Patient requests full CODE STATUS. Patient agrees to plan. Initial ECG Impression Date: Oct 15, 2022 Initial ECG Impression Time: 11:20 Initial ECG Rhythm: A Fib/Flutter Initial ECG Impression: Atrial Fibrillation w/RVR Comment Atrial fibrillation with rapid ventricular response with normal axis. Some findings consistent with LVH with deep S waves in V3 and V4. No evidence of ST elevation IA. Interpreted by me. Diagnostic Imaging Diagonstic Imaging: Xray Plain Films/CT/US/NM/MRI: chest Comments [facility] [place], [place] NAME: ARJUN JOLLEY [facility] REC#: [id number] PT STATUS: REG ER : 1955 PHYSICIAN: JOSE JOHN MD ADMIT DATE: 10/15/22/ER Draft Date of Exam:10/15/22 CHEST 1 VIEW, AP/PA ONLY INDICATION: Shortness of air, racing heart, chest pain. TECHNIQUE: Single view chest at 11:45 AM. CORRELATION STUDY: 12/13/2021. FINDINGS: Extensive infiltrate at the right lung base. Suspect small bilateral pleural effusions. Heart size is enlarged with borderline vasculature; however, this appears slightly less severe from prior. IMPRESSION: Right basilar opacity favoring infiltrate. Asymmetric edema or even aspiration is also a consideration. Small effusions along with at least mild severity edema. Dictated on workstation # [id number] Dict: 10/15/22 1149 Trans: 10/15/22 1154 [id number] Interpreted by: JAY BENITEZ DO Electronically signed by: Departure Communication (Admissions) Time/Spoke to Admitting Phy: 14:23 Time/Spoke to Consulting Phy: 14:17 Impression Primary Impression: Uncontrolled atrial fibrillation Additional Impression: Acute heart failure Qualified Codes: I50.9 - Heart failure, unspecified Disposition: ADMITTED INPATIENT Condition: Stable Admissions Decision to Admit Reason: Admit from ER (General) Decision to Admit/Date: Oct 15, 2022 Time/Decision to Admit Time: 14:23 Departure-Patient Inst. Referrals: [facility] (PCP/Family) Primary Care Physician JOSE JOHN MD Oct 15, 2022 11:27
[2022-10-15] MEDS ORDERED: NS IV 500 ML 500 ML IV ONE (11:30)
[2022-10-15] MEDS ORDERED: dilTIAZem DRIP PRE-MIX 125 ML IV SCH (11:30)
[2022-10-15] MEDS ORDERED: dilTIAZem INJ 25 MG/5 ML VIAL IVP ONE (11:30)
[2022-10-15 11:31] LABS: BASOPHILS # (AUTO) 0.1 10^3/uL (0.0-0.1); BASOPHILS % (AUTO) 1 % (0-10); EOSINOPHILS % (AUTO) 0 % (0-10); HEMATOCRIT 46 % (40-54); HEMOGLOBIN 15.4 g/dL (13.3-17.7); LYMPHOCYTES # (AUTO) 1.1 10^3/uL (1.0-4.0); LYMPHOCYTES % (AUTO) 13 % (12-44); MEAN CORPUSCULAR HEMOGLOBIN 32 pg (25-34); MEAN CORPUSCULAR HGB CONC 33 g/dL (32-36); MEAN CORPUSCULAR VOLUME 97 fL (80-99); MEAN PLATELET VOLUME 11.7 fL (9.0-12.2); MONOCYTES # (AUTO) 0.4 10^3/uL (0.0-1.0); MONOCYTES % (AUTO) 4 % (0-12); NEUTROPHILS # (AUTO) 6.9 10^3/uL (1.8-7.8); NEUTROPHILS % (AUTO) 82 % (42-75); PLATELET COUNT 165 10^3/uL (130-400); WHITE BLOOD COUNT 8.5 10^3/uL (4.3-11.0)
[2022-10-15 11:40] LABS: ALBUMIN 4.1 GM/DL (3.2-4.5); CHLORIDE 103 MMOL/L (98-107); POTASSIUM 4.5 MMOL/L (3.6-5.0); SODIUM 136 MMOL/L (135-145)
[2022-10-15 11:41] LABS: INR 2.7 (0.8-1.4); PROTHROMBIN TIME PATIENT 28.5 SEC (12.2-14.7)
[2022-10-15 11:42] LABS: CALCIUM 9.3 MG/DL (8.5-10.1)
[2022-10-15 11:43] LABS: GLUCOSE 118 MG/DL (70-105); TOTAL PROTEIN 7.2 GM/DL (6.4-8.2)
[2022-10-15 11:44] LABS: CARBON DIOXIDE 21 MMOL/L (21-32)
[2022-10-15 11:45] LABS: BILIRUBIN,TOTAL 1.2 MG/DL (0.1-1.0)
[2022-10-15 11:46] LABS: ALKALINE PHOSPHATASE 68 U/L (40-136); GFR ESTIMATED 98
[2022-10-15 11:48] LABS: BUN/CREATININE RATIO 13
[2022-10-15 11:49] LABS: ALANINE AMINOTRANSFERASE 26 U/L (0-55); MAGNESIUM 2.1 MG/DL (1.6-2.4)
--- NOTE | 2022-10-15 11:54 | Diagnostic Imaging Report ---
INDICATION: Shortness of air, racing heart, chest pain. TECHNIQUE: Single view chest at 11:45 AM. CORRELATION STUDY: 12/13/2021. FINDINGS: Extensive infiltrate at the right lung base. Suspect small bilateral pleural effusions. Heart size is enlarged with borderline vasculature; however, this appears slightly less severe from prior. IMPRESSION: Right basilar opacity favoring infiltrate. Asymmetric edema or even aspiration is also a consideration. Small effusions along with at least mild severity edema. Dictated by: Dictated on workstation # [id number]
[2022-10-15] MEDS ORDERED: dilTIAZem ER 120 MG CAPSULE PO ONE (12:45)
--- NOTE | 2022-10-15 14:11 | Consultation-Cardiology ---
HPI-Cardiology Cardiology Consultation: Date of Consultation 10/15/22 Date of Admission Attending Physician [facility] Admitting Physician Admitting Physician: Attending Physician: Consulting Physician Nikita SCOTT MD HPI: Time Seen by a Provider: 14:09 Chief Complaint: Shortness of breath, palpitation This is a 66-year-old gentleman who follows with Dr. Potter. Patient has history of persistent atrial fibrillation, coronary artery disease, marijuana abuse. He presents with shortness of breath and palpitations. He was found to be in atrial fibrillation with RVR. He was started on Cardizem IV which significantly improved his ventricular rate. Patient is on uninterrupted Xarelto. He had cardioversion done in December 2021 which was successful. He also had an admission for non-STEMI in December 2021 for which he received a bare-metal stent in his left circumflex artery. He is an active marijuana user. He denies active smoking. Family history is not pertinent. Review of Systems-Cardiology Review of Systems Constitutional: no symptoms reported Eyes: no symptoms reported Ears/Nose/Throat: no symptoms reported Respiratory: shortness of breath Cardiovascular: irregular heart rate, palpitations Gastrointestinal: no symptoms reported Genitourinary: no symptoms reported Musculoskeletal: no symptoms reported Skin: no symptoms reported Psychiatric/Neurological: no symptoms reported Hematologic: no symptoms reported NMQ-Ggvwki-Lglhhj Hx Patient Social History Alcohol Use?: Yes Substance type: Marijuana Pt feels they are or have been: No Past Medical History PMH As described under Assessment. Family Medical History Family Medical History: He reports that both his father and mother had myocardial infarction's but in their 60s. He has an older brother who has coronary stents. Allergies and Home Medications Allergies Coded Allergies: No Allergy Information Available (Unverified , 12/10/21) Patient Home Medication List Home Medication List Reviewed: Yes Amiodarone HCl (Amiodarone HCl) 400 Mg Tablet, 400 MG PO BID Prescribed by: ZARI BARROW JR, MD on 12/16/21 0833 Cholecalciferol (Vitamin D3) (Vitamin D3) 50 Mcg (2000 Unit) Capsule, 100 MCG PO DAILY, (Reported) Entered as Reported by: CRISTINA CANTU on 12/12/21 0949 Clopidogrel Bisulfate (Clopidogrel) 75 Mg Tablet, 75 MG PO DAILY Prescribed by: ZARI BARROW JR, MD on 12/16/21832 Digoxin (Digox) 125 Mcg (0.125 Mg) Tablet, 0.125 MG PO DAILY Prescribed by: ZARI BARROW JR, MD on 12/16/21832 Furosemide (Furosemide) 20 Mg Tablet, 20 MG PO DAILY Prescribed by: ZARI BARROW JR, MD on 12/16/21832 Metoprolol Succinate (Metoprolol Succinate) 25 Mg Tab.er.24h, 25 MG PO BID Prescribed by: ZARI BARROW JR, MD on 12/16/21832 Nitroglycerin (Nitroglycerin) 0.4 Mg Tab.subl, 0.4 MG SL NEEDED PRN for CHEST PAIN (ANGINA) Prescribed by: ZARI BARROW JR, MD on 12/16/21832 Rivaroxaban (Xarelto Tablet) 20 Mg Tablet, 20 MG PO DAILY@1700 Prescribed by: ZARI BARROW JR, MD on 12/16/21828 Rosuvastatin Calcium (Rosuvastatin Calcium) 20 Mg Tablet, 20 MG PO HS Prescribed by: ZARI BARROW JR, MD on 12/16/21832 Exam Vital Signs Vital Signs Date Time Temp Pulse Resp B/P (MAP) Pulse Ox O2 Delivery O2 Flow Rate FiO2 10/15/22 11:33 146 131/103 10/15/22 11:13 36.8 14 96 Room Air Physical Exam Constitutional: No significant respiratory distress. Chest examination: No significant wheezing or rhonchi were heard. CVS: Irregular rhythm with reasonable ventricular control. No significant peripheral edema. Neuro: Nonfocal. Labs Laboratory Tests Test 10/15/22 11:22 Range/Units White Blood Count 8.5 4.3-11.0 10^3/uL Red Blood Count 4.81 4.30-5.52 10^6/uL Hemoglobin 15.4 13.3-17.7 g/dL Hematocrit 46 40-54 % Mean Corpuscular Volume 97 80-99 fL Mean Corpuscular Hemoglobin 32 25-34 pg Mean Corpuscular Hemoglobin Concent 33 32-36 g/dL Red Cell Distribution Width 14.6 H 10.0-14.5 % Platelet Count 165 130-400 10^3/uL Mean Platelet Volume 11.7 9.0-12.2 fL Immature Granulocyte % (Auto) 0 % Neutrophils (%) (Auto) 82 H 42-75 % Lymphocytes (%) (Auto) 13 12-44 % Monocytes (%) (Auto) 4 0-12 % Eosinophils (%) (Auto) 0 0-10 % Basophils (%) (Auto) 1 0-10 % Neutrophils # (Auto) 6.9 1.8-7.8 10^3/uL Lymphocytes # (Auto) 1.1 1.0-4.0 10^3/uL Monocytes # (Auto) 0.4 0.0-1.0 10^3/uL Eosinophils # (Auto) 0.0 0.0-0.3 10^3/uL Basophils # (Auto) 0.1 0.0-0.1 10^3/uL Immature Granulocyte # (Auto) 0.0 0.0-0.1 10^3/uL Prothrombin Time 28.5 H 12.2-14.7 SEC INR Comment 2.7 H 0.8-1.4 Activated Partial Thromboplast Time 57 H 24-35 SEC Sodium Level 136 135-145 MMOL/L Potassium Level 4.5 3.6-5.0 MMOL/L Chloride Level 103 98-107 MMOL/L Carbon Dioxide Level 21 21-32 MMOL/L Anion Gap 12 5-14 MMOL/L Blood Urea Nitrogen 10 7-18 MG/DL Creatinine 0.80 0.60-1.30 MG/DL Estimat Glomerular Filtration Rate 98 BUN/Creatinine Ratio 13 Glucose Level 118 H 70-105 MG/DL Calcium Level 9.3 8.5-10.1 MG/DL Corrected Calcium 9.2 8.5-10.1 MG/DL Magnesium Level 2.1 1.6-2.4 MG/DL Total Bilirubin 1.2 H 0.1-1.0 MG/DL Aspartate Amino Transf (AST/SGOT) 31 5-34 U/L Alanine Aminotransferase (ALT/SGPT) 26 0-55 U/L Alkaline Phosphatase 68 40-136 U/L Myoglobin 44.2 10.0-92.0 NG/ML Troponin I < 0.028 <0.028 NG/ML C-Reactive Protein High Sensitivity 0.14 0.00-0.50 MG/DL B-Type Natriuretic Peptide 3721.1 H <100.0 PG/ML Total Protein 7.2 6.4-8.2 GM/DL Albumin 4.1 3.2-4.5 GM/DL ECG Impression ECG Initial ECG Rhythm: A Fib/Flutter A/P-Cardiology Assessment/Admission Diagnosis Persistent atrial fibrillation with RVR Acute on chronic congestive heart failure Acute marijuana use History of thoracic aortic aneurysm. Alcohol use Mild COPD Plan Persistent atrial fibrillation with RVR: Good control on IV Cardizem. On uninterrupted Xarelto. Presented with shortness of breath. Feeling better but still in atrial fibrillation. Patient will likely require antiarrhythmic agent with or without cardioversion in the near future. Patient already had 1 cardioversion in December 2021. Acute on chronic congestive heart failure. Significantly elevated BNP. Mild CHF on chest x-ray. Patient presented with shortness of breath but was feeling better when I saw him. Overnight admission. Lasix. Echocardiogram in the morning. Patient has history of non-STEMI/CAD in December 2021 requiring bare-metal stent to left circumflex artery. Patient denied any significant chest pain. First troponin is negative. EKG does not show any significant ST deviation. Will do serial troponin. Patient is on Plavix. History of thoracic aortic aneurysm. Dr. Potter follows in outpatient. Possible COPD. Defer to Dr. Wakefield. Marijuana and alcohol use: I recommended that he quits. Patient will think about it. Nikita SCOTT MD Oct 15, 2022 14:11
[2022-10-15] MEDS ORDERED: FUROSEMIDE INJECTION 40 MG/4 ML VIAL IVP ONE (14:30)
[2022-10-15] MEDS ORDERED: diphenhydrAMINE INJ 50 MG/ML VIAL IVP PRN (15:15)
[2022-10-15] MEDS ORDERED: BISACODYL 10 MG SUPPOSITORY PR PRN (15:15)
[2022-10-15] MEDS ORDERED: BENZONATATE 100 MG CAPSULE PO PRN (15:15)
[2022-10-15] MEDS ORDERED: LACTULOSE SYRUP 10GM/15ML 30ML UDC PO PRN (15:15)
[2022-10-15] MEDS ORDERED: ONDANSETRON 4 MG (ZOFRAN) ORAL DISSOLVE TAB PO PRN (15:15)
[2022-10-15] MEDS ORDERED: CALCIUM CARBONATE 500 MG CHEW TABLET PO PRN (15:15)
[2022-10-15] MEDS ORDERED: ANTACID SUSPENSION 30 ML UDC PO PRN (15:15)
[2022-10-15] MEDS ORDERED: ACETAMINOPHEN 325 MG TABLET PO PRN (15:15)
[2022-10-15] MEDS ORDERED: HYDROmorphone INJECTION 2 MG/ML VIAL IV PRN (15:15)
[2022-10-15] MEDS ORDERED: diphenhydrAMINE 25 MG TABLET PO PRN (15:15)
[2022-10-15] MEDS ORDERED: oxyCODONE IMMEDIATE RELEASE 5 MG TABLET PO PRN (15:15)
[2022-10-15] MEDS ORDERED: MILK OF MAGNESIA 400 MG/5 ML 30 ML UDC PO PRN (15:15)
[2022-10-15] MEDS ORDERED: ONDANSETRON 4 MG/2 ML (SDV) Z0FRAN IV PRN (15:15)
[2022-10-15] MEDS ORDERED: MELATONIN 3 MG TABLET PO PRN (15:15)
[2022-10-15] MEDS ORDERED: polyethylene glycoL POWDER 17 GM (MIRALAX) PACK PO PRN (15:15)
[2022-10-15 15:34] VITALS: BP 125/105
[2022-10-15] MEDS ORDERED: RT-Ipratropium/Albuterol NEB 3 ML VIAL INH PRN (15:45)
[2022-10-15 15:46] LABS: BASOPHILS # (AUTO) 0.1 10^3/uL (0.0-0.1); BASOPHILS % (AUTO) 1 % (0-10); EOSINOPHILS % (AUTO) 1 % (0-10); HEMATOCRIT 44 % (40-54); HEMOGLOBIN 14.9 g/dL (13.3-17.7); LYMPHOCYTES # (AUTO) 1.4 10^3/uL (1.0-4.0); LYMPHOCYTES % (AUTO) 20 % (12-44); MEAN CORPUSCULAR HEMOGLOBIN 32 pg (25-34); MEAN CORPUSCULAR HGB CONC 34 g/dL (32-36); MEAN CORPUSCULAR VOLUME 96 fL (80-99); MEAN PLATELET VOLUME 11.7 fL (9.0-12.2); MONOCYTES # (AUTO) 0.4 10^3/uL (0.0-1.0); MONOCYTES % (AUTO) 5 % (0-12); NEUTROPHILS # (AUTO) 5.1 10^3/uL (1.8-7.8); NEUTROPHILS % (AUTO) 73 % (42-75); PLATELET COUNT 166 10^3/uL (130-400); WHITE BLOOD COUNT 6.9 10^3/uL (4.3-11.0)
[2022-10-15 15:58] LABS: POTASSIUM 4.7 MMOL/L (3.6-5.0)
[2022-10-15 16:03] LABS: CREATININE SERUM 0.75 MG/DL (0.60-1.30)
[2022-10-15] MEDS: RIVAROXABAN 20 MG TABLET (XARELTO) PO SCH (16:35)
[2022-10-15 16:51] VITALS: BP 121/89
--- NOTE | 2022-10-15 16:55 | History & Physical-Hospitalist ---
History of Present Illness HPI/Chief Complaint Chief complaint: A-fib with RVR with new onset congestive heart failure with pneumonia HPI: This is a 66-year-old male [facility] clinic patient who also sees Dr. Phelps On a regular basis who has a history of A-fib who came in with shortness of breath and palpitations found to have A-fib with RVR received Cardizem bolus which slowed the heart rate down but shortness of breath and cough was reported and chest x-ray showed early pneumonia so the plan was to admit to cardiac stepdown unit and initiate Lasix and check echocardiogram in the morning. Source: patient Exam Limitations: no limitations Date Seen 10/15/22 Time Seen by a Provider: 13:00 Attending Physician [facility] PCP Admitting Physician: Shellie Wakefield DO Attending Physician: Shellie Wakefield DO Referring Physician Date of Admission Oct 15, 2022 at 15:12 Home Medications & Allergies Home Medications Reviewed patient Home Medication Reconciliation performed by pharmacy medication reconciliations traffic analysis technician and/or nursing. Patients Allergies have been reviewed. Allergies Allergies Coded Allergies No Allergy Information Available (Ciqgpzqhyo69/8/22) Past Vxgnkqk-Dxvrkc-Lllfbx Hx Patient Social History Marrital Status: single Employed/Student: retired Tobacco Use?: No Smoking Status: Current Everyday Smoker Use of E-Cig and/or Vaping dev: No Substance use?: Yes Substance type: Marijuana Substance frequency: Couple times a week Alcohol Use?: Yes Alcohol type: Hard Liquor Alcohol Frequency: Couple times a week Additional Alcohol Comments: drinks 4 nights a week, 4 drinks Pt feels they are or have been: No Immunizations Up To Date Hepatitis A: No Hepatitis B: No Current Status Advance Directives: No Communicates: Verbally Primary Language: Burmese Preferred Spoken Language: Burmese Is interpretation needed?: No Sensory deficits: Vision impairment Implanted or Applied Medical D: Orthopedic hardware, Stents Past Medical History Surgeries: Coronary Stent COPD Currently Using CPAP: No Currently Using BIPAP: No Aneurysm, Atrial Fibrillation, Irregular Heartbeat Family Medical History Reviewed Nursing Family Hx No Pertinent Family Hx Review of Systems Constitutional: see HPI Respiratory: short of breath Cardiovascular: palpitations Physical Exam Physical Exam Vital Signs Vital Signs - First Documented 10/15/22 10/15/22 11:13 15:34 Temp 36.8 Pulse 153 Resp 14 B/P (MAP) 131/103 (112) Pulse Ox 96 O2 Delivery Room Air FiO2 21 Capillary Refill : Less Than 3 Seconds Height, Weight, BMI Height: '" Weight: lbs. oz. kg; 21.05 BMI Method: General Appearance: No Apparent Distress, Thin Eyes: Right Eye Normal Inspection, Right Eye PERRL HEENT: PERRL/EOMI, TMs Normal, Normal ENT Inspection, Pharynx Normal, Moist Mucous Membranes Neck: Full Range of Motion, Normal Inspection, Non Tender Respiratory: Chest Non Tender, Lungs Clear, No Accessory Muscle Use, No Respiratory Distress, Decreased Breath Sounds Cardiovascular: No Edema, No Gallop, No JVD, No Murmur, Normal Peripheral Pulses, Irregularly Irregular, Tachycardia Gastrointestinal: Normal Bowel Sounds, No Organomegaly, No Pulsatile Mass, Non Tender, Soft Back: Normal Inspection, No CVA Tenderness, No Vertebral Tenderness Extremity: Normal Capillary Refill, Normal Inspection, Normal Range of Motion, Non Tender, No Calf Tenderness, No Pedal Edema Neurologic/Psychiatric: Alert, Oriented x3, No Motor/Sensory Deficits, Normal Mood/Affect Skin: Normal Color, Warm/Dry Lymphatic: No Adenopathy Results Results/Procedures Labs Laboratory Tests 10/15/22 11:22 10/15/22 15:38 Patient resulted labs reviewed. Assessment/Plan Admission Diagnosis Assessment: A-fib with RVR Known history of A-fib maintained on Xarelto New onset congestive heart failure Pneumonia Former smoker THC use Plan: IV Lasix Oxygen Xarelto Check echo in morning Admission Status: Observation Clinical Quality Measures AMI/AHF: ASA po Prior to arrival: Yes SHELLIE WAKEFIELD DO Oct 15, 2022 16:55
[2022-10-15] MEDS: RT-Ipratropium/Albuterol NEB 3 ML VIAL INH SCH ×2 (19:00→22:09)
[2022-10-15 19:20] VITALS: BP 134/95
[2022-10-15] MEDS: DOCUSATE SODIUM 100 MG CAPSULE PO SCH (19:52)
[2022-10-15] MEDS: SENNOSIDES 8.6 MG (SENOKOT) TAB PO SCH (19:52)
[2022-10-15] MEDS: FUROSEMIDE INJECTION 40 MG/4 ML VIAL IV SCH (19:52)
[2022-10-15] MEDS: dilTIAZem ER 120 MG CAPSULE PO SCH (19:58)
[2022-10-15 23:48] VITALS: BP 126/64
[2022-10-16] VITALS (7 sets, daily range): BP systolic 119–136; BP diastolic 84–113
[2022-10-16] MEDS: RT-Ipratropium/Albuterol NEB 3 ML VIAL INH SCH ×6 (02:06→22:28)
[2022-10-16 04:58] LABS: BASOPHILS # (AUTO) 0.1 10^3/uL (0.0-0.1); BASOPHILS % (AUTO) 1 % (0-10); EOSINOPHILS # (AUTO) 0.1 10^3/uL (0.0-0.3); EOSINOPHILS % (AUTO) 1 % (0-10); HEMATOCRIT 41 % (40-54); HEMOGLOBIN 13.9 g/dL (13.3-17.7); LYMPHOCYTES # (AUTO) 1.4 10^3/uL (1.0-4.0); LYMPHOCYTES % (AUTO) 19 % (12-44); MEAN CORPUSCULAR HEMOGLOBIN 32 pg (25-34); MEAN CORPUSCULAR HGB CONC 34 g/dL (32-36); MEAN CORPUSCULAR VOLUME 95 fL (80-99); MEAN PLATELET VOLUME 11.7 fL (9.0-12.2); MONOCYTES # (AUTO) 0.4 10^3/uL (0.0-1.0); MONOCYTES % (AUTO) 6 % (0-12); NEUTROPHILS # (AUTO) 5.2 10^3/uL (1.8-7.8); NEUTROPHILS % (AUTO) 73 % (42-75); PLATELET COUNT 144 10^3/uL (130-400); WHITE BLOOD COUNT 7.2 10^3/uL (4.3-11.0)
[2022-10-16 05:04] LABS: ALBUMIN 3.5 GM/DL (3.2-4.5); POTASSIUM 3.9 MMOL/L (3.6-5.0)
[2022-10-16 05:05] LABS: CALCIUM 8.6 MG/DL (8.5-10.1)
[2022-10-16 05:07] LABS: TOTAL PROTEIN 6.3 GM/DL (6.4-8.2)
[2022-10-16 05:09] LABS: BILIRUBIN,TOTAL 0.8 MG/DL (0.1-1.0)
[2022-10-16 05:10] LABS: CREATININE SERUM 0.74 MG/DL (0.60-1.30)
[2022-10-16] MEDS: FUROSEMIDE INJECTION 40 MG/4 ML VIAL IV SCH ×2 (06:45→18:10)
--- NOTE | 2022-10-16 08:06 | Progress Note - Cardiology ---
Cardiology SOAP Progress Note Subjective: LATE ENTRY FOR MY VISIT TO THE PATIENT ON 10/16/22 AT 9 AM Sitting up in bed No c/o CP Reports he feels SOB every time he gets up and his HR goes up Gen weakness and malaise No syncope Objective: I&O/Vital Signs 10/17/22 10/17/22 10/17/22 10/17/22 02:38 03:41 07:06 07:16 Temp 36.3 Pulse 89 77 Resp 29 B/P (MAP) 108/85 (93) Pulse Ox 99 95 99 O2 Delivery Room Air Room Air Room Air 10/17/22 10/17/22 10/17/22 10/17/22 07:22 08:00 10:49 11:26 Temp 36.3 36.1 Pulse 83 89 Resp 21 14 B/P (MAP) 100/84 (89) 116/79 (91) Pulse Ox 96 99 95 O2 Delivery Room Air Room Air Room Air Room Air 10/17/22 12:27 Pulse 94 10/17/22 00:00 Intake Total 900 ml Output Total 4500 ml Balance -3600 ml Constitutional: AAO x 3, well-developed, well-nourished Respiratory: No accessory muscle use, No respiratory distress; lungs clear to auscultation Cardiovascular: irregularly irregular; No JVD Gastrointestional: No tender; soft, audible bowel sounds Neurologic/Psychiatric: other (moves all extremities) Skin: No rash on exposed areas, No ulcerations on exposed areas Results/Procedures: Labs Laboratory Tests 10/17/22 04:52: White Blood Count 6.7, Red Blood Count 4.45, Hemoglobin 14.2, Hematocrit 42, Mean Corpuscular Volume 94, Mean Corpuscular Hemoglobin 32, Mean Corpuscular Hemoglobin Concent 34, Red Cell Distribution Width 14.3, Platelet Count 163, Mean Platelet Volume 11.5, Immature Granulocyte % (Auto) 0, Neutrophils (%) (Auto) 75, Lymphocytes (%) (Auto) 16, Monocytes (%) (Auto) 6, Eosinophils (%) (Auto) 2, Basophils (%) (Auto) 1, Neutrophils # (Auto) 5.0, Lymphocytes # (Auto) 1.1, Monocytes # (Auto) 0.4, Eosinophils # (Auto) 0.1, Basophils # (Auto) 0.1, Immature Granulocyte # (Auto) 0.0, Sodium Level 137, Potassium Level 3.7, Chlor dylan Level 100, Carbon Dioxide Level 25, Anion Gap 12, Blood Urea Nitrogen 7, Creatinine 0.70, Estimat Glomerular Filtration Rate 102, BUN/Creatinine Ratio 10, Glucose Level 106H, Calcium Level 9.1, Corrected Calcium 9.3, Total Bilirubin 0.9, Aspartate Amino Transf (AST/SGOT) 30, Alanine Aminotransferase (ALT/SGPT) 22, Alkaline Phosphatase 58, Total Protein 6.6, Albumin 3.7 Microbiology 10/15/22 Gram Stain - Final, Resulted 10/15/22 Sputum Culture - Preliminary, Resulted Culture In Progress Laboratory Tests 10/15/22 15:38 10/16/22 04:31 10/17/22 04:52 A/P: Assessment: PAF (a-fib with RVR this hospitalization) - first dx during hospitalization on 12-15-21 - H/O cardioversion by Dinah Villagomez on 12-15-21 - ZIO monitor of 03-09-22 to 03-23-22 showed NSR; three 4-beat runs of WCT (rates up to approx 180 bpm); several runs of SVT up to 4 beats (rates up to 174 bpm) - OAC with Xarelto - reports compliance CAD - Cardiac cath of 12-14-[address] Villagomez: Normal central aortic pressure. Status post bare-metal stent placement to the mid left circumflex coronary artery for a non-ST elevation myocardial infarction with a 3.5 x 23 mm vision stent with 0% residual stenosis and VENTURA-3 flow. - ECHOCARDIOGRAM (12/12/2021): Moderate left ventricular dilatation with mild concentric hypertrophy. Severe left ventricular systolic dysfunction with an estimated ejection fraction of 25-30% with diffuse hypokinesis. The left ventricular diastolic function is indeterminate due to atrial fibrillation. The right ventricle is mildly dilated with a diameter of 4 cm in the parasternal long axis view. Systolic function is normal. TAPSE 2.1 cm. The left atrium is severely dilated with a volume index of 48 mL/m. The right atrium is severely dilated with an area of 37 cm. There is mild aortic regurgitation with a pressure half-time of 616 ms. There is moderate mitral regurgitation. There is moderate tricuspid regurgitation. The aortic root is mildly dilated with a diameter of 4 cm. The estimated pulmonary artery systolic pressure is 38 mmHg as suming a right atrial pressure of 5 mmHg. There are right and left pleural effusions. - ECHOCARDIOGRAM (03/15/2022) by Dr. Villagomez: Normal left ventricular chamber size with mild concentric hypertrophy. Normal left ventricular systolic function with an estimated ejection fraction of 60-65% with no regional wall motion abnormalities identified. Doppler parameters consistent with grade 1 diastolic d ysfunction. The left atrium is severely dilated with a volume index of 46 mL/m. The right atrium is severely dilated with an area of 39 cm. There is mild aortic regurgitation. There is mild mitral regurgitation. The estimated pulmonary artery systolic pressure is 34 mmHg assuming a right atrial pressure of 5 mmHg. Compared to the previous study from 12/12/2021, there have been significant improvements in the left ventricular size and systolic function and mitral and tricuspid regurgitation. ICM - Echo of 12-12-[address] Villagomez prior to coronary intervention showed LVEF 25- 30% - Echo of 03-15-[address] Villagomez showed LVEF 60-65% HTN HLD Chronic marijuana use 2-3 alcohol drinks a day, chronic Non-compliance with medications - reports he quit medications other than Xarelto d/t side effects Plan: A-fib with RVR - previously on Cardizem gtt - stopped and changed to oral yesterday - but HR is not well controlled this morning - adjust medication regimen - continue OAC with Xarelto Pt reports he does not like to take "pharmaceutical" medications - discussed sandra atment plan of increasing his Cardizem to which he agrees He reports he has been compliant with Xarelto for at least the last 2 months without interruption. We will consider cardioversion tomorrow if remains in uncontrolled a-fib Physician Assessment Physician Assessment LATE ENTRY FOR MY VISIT TO THE PATIENT ON 10/17/22 AT 9 AM I interviewed and examined the patient and reviewed his records The assessment and plan is as described above Risk factor modification was also reviewed Clinical Quality Measures AMI/AHF: ASA po Prior to arrival: Yes EJ ALDRIDGE HOME ASSESSMENT NURSE Oct 16, 2022 08:06 JOSUE ROUSSEAU MD FACP FAC CCDS Oct 17, 2022 14:32
[2022-10-16] MEDS: dilTIAZem ER 120 MG CAPSULE PO SCH (08:39)
[2022-10-16] MEDS: SENNOSIDES 8.6 MG (SENOKOT) TAB PO SCH ×2 (08:45→21:36)
[2022-10-16] MEDS: DOCUSATE SODIUM 100 MG CAPSULE PO SCH ×2 (08:45→21:35)
[2022-10-16] MEDS ORDERED: [UNRECOGNIZED DRUG - OTHER] PO (09:15)
[2022-10-16] MEDS ORDERED: KRIL1CAP31 PO (09:15)
[2022-10-16] MEDS ORDERED: RIVA20TA2 PO (09:15)
[2022-10-16] MEDS ORDERED: [UNRECOGNIZED DRUG - OTHER] PO (09:17)
[2022-10-16] MEDS ORDERED: dilTIAZem ER 180 MG CAPSULE PO NR (09:30)
[2022-10-16] MEDS ORDERED: ASPIRIN 81 MG CHEWABLE TABLET PO NR (10:00)
--- NOTE | 2022-10-16 10:02 | Progress Note ---
Subjective Subjective/Events-last exam Feeling pretty good except mildly short of breath with activity. Notes he can feel his heart rate has gone up some today. Cough, loss of taste and poor appetite for a month. Denies fever. Everything he eats, feels like sand, has to wash it down with liquid, feels like things are getting stuck down low in his es ophagus like in clumps. Drinks water and jumps around until feels like things go down. He states his weight stays around 155 most of the time. He did gain weight after his heart rate was better for a while in the past, but with his irregular rhythm he has lost his appetite again. Objective Exam Last Set of Vital Signs Vital Signs Date Time Temp Pulse Resp B/P (MAP) Pulse Ox O2 Delivery O2 Flow Rate FiO2 10/16/22 07:40 36.0 110 18 125/107 (113) 96 Room Air 10/15/22 22:10 21 Capillary Refill : Less Than 3 Seconds I&O Intake and Output 10/15/22 23:59 Intake Total 740 ml Output Total 4250 ml Balance -3510 ml Intake Oral 240 ml IV Total 500 ml Output Urine Total 4250 ml Daily Weight Change Yes, 2-13 lbs General: Alert, No Acute Distress Lungs: Clear to Auscultation, Normal Air Movement Heart: Other (irregularly irregular, tachycardic) Extremities: No Edema Psych/Mental Status: Mood NL Results/Procedures Lab Laboratory Tests 10/15/22 11:22: White Blood Count 8.5, Red Blood Count 4.81, Hemoglobin 15.4, Hematocrit 46, Mean Corpuscular Volume 97, Mean Corpuscular Hemoglobin 32, Mean Corpuscular Hemoglobin Concent 33, Red Cell Distribution Width 14.6H, Platelet Count 165, Mean Platelet Volume 11.7, Immature Granulocyte % (Auto) 0, Neutrophils (%) (Auto) 82H, Lymphocytes (%) (Auto) 13, Monocytes (%) (Auto) 4, Eosinophils (%) (Auto) 0, Basophils (%) (Auto) 1, Neutrophils # (Auto) 6.9, Lymphocytes # (Auto) 1.1, Monocytes # (Auto) 0.4, Eosinophils # (Auto) 0.0, Basophils # (Auto) 0.1, Immature Granulocyte # (Auto) 0.0, Prothrombin Time 28.5H, INR Comment 2.7H, Activated Partial Thromboplast Time 57H, Sodium Level 136, Potassium Level 4.5, Chloride Level 103, Carbon Dioxide Level 21, Anion Gap 12, Blood Urea Nitrogen 10, Creatinine 0.80, Estimat Glomerular Filtration Rate 98, BUN/Creatinine Ratio 13, Glucose Level 118H, Calcium Level 9.3, Corrected Calcium 9.2, Magnesium Level 2.1, Total Bilirubin 1.2H, Aspartate Amino Transf (AST/SGOT) 31, Alanine Aminotransferase (ALT/SGPT) 26, Alkaline Phosphatase 68, Myoglobin 44.2, Troponin I < 0.028, C-Reactive Protein High Sensitivity 0.14, B-Type Natriuretic Peptide 3721.1H, Total Protein 7.2, Albumin 4.1 10/15/22 14:24: Troponin I < 0.028 10/15/22 15:38: White Blood Count 6.9, Red Blood Count 4.62, Hemoglobin 14.9, Hematocrit 44, Mean Corpuscular Volume 96, Mean Corpuscular Hemoglobin 32, Mean Corpuscular Hemoglobin Concent 34, Red Cell Distribution Width 14.6H, Platelet Count 166, Mean Platelet Volume 11.7, Immature Granulocyte % (Auto) 0, Neutrophils (%) (Auto) 73, Lymphocytes (%) (Auto) 20, Monocytes (%) (Auto) 5, Eosinophils (%) (Auto) 1, Basophils (%) (Auto) 1, Neutrophils # (Auto) 5.1, Lymphocytes # (Auto) 1.4, Monocytes # (Auto) 0.4, Eosinophils # (Auto) 0.0, Basophils # (Auto) 0.1, Immature Granulocyte # (Auto) 0.0, Sodium Level 138, Potassium Level 4.7, Chloride Level 103, Carbon Dioxide Level 24, Anion Gap 11, Blood Urea Nitrogen 9, Creatinine 0.75, Estimat Glomerular Filtration Rate 100, BUN/Creatinine Ratio 12, Glucose Level 104, Calcium Level 9.0 10/16/22 04:31: White Blood Count 7.2, Red Blood Count 4.37, Hemoglobin 13.9, Hematocrit 41, Mean Corpuscular Volume 95, Mean Corpuscular Hemoglobin 32, Mean Corpuscular Hemoglobin Concent 34, Red Cell Distribution Width 14.4, Platelet Count 144, Mean Platelet Volume 11.7, Immature Granulocyte % (Auto) 0, Neutrophils (%) (Auto) 73, Lymphocytes (%) (Auto) 19, Monocytes (%) (Auto) 6, Eosinophils (%) (Auto) 1, Basophils (%) (Auto) 1, Neutrophils # (Auto) 5.2, Lymphocytes # (Auto) 1.4, Monocytes # (Auto) 0.4, Eosinophils # (Auto) 0.1, Basophils # (Auto) 0.1, Immature Granulocyte # (Auto) 0.0, Sodium Level 138, Potassium Level 3.9, Chlo ride Level 103, Carbon Dioxide Level 23, Anion Gap 12, Blood Urea Nitrogen 10, Creatinine 0.74, Estimat Glomerular Filtration Rate 100, BUN/Creatinine Ratio 14, Glucose Level 98, Calcium Level 8.6, Corrected Calcium 9.0, Total Bilirubin 0.8, Aspartate Amino Transf (AST/SGOT) 28, Alanine Aminotransferase (ALT/SGPT) 23, Alkaline Phosphatase 56, Total Protein 6.3L, Albumin 3.5, Triglycerides Level 57, Cholesterol Level 130, LDL Cholesterol Direct 92, VLDL Cholesterol 11, HDL Cholesterol 36L Assessment/Plan Assessment/Plan Admission Status: Observation (1) Elevated brain natriuretic peptide (BNP) level Status: Acute Assessment & Plan: Suspecte acute CHF, echo pending, started on IV lasix. Appreciate Cardiology recommendations. (2) Atrial fibrillation with RVR Status: Acute Assessment & Plan: Rate controlled on IV cardizem, changed to oral and heart rate slightly increased, appreciate Cardiology recommendations. Continue Xarelto. (3) Paroxysmal atrial fibrillation Status: Chronic (4) Coronary artery disease Status: Chronic Assessment & Plan: Stenting in Dec 2021. (5) Thoracic aortic aneurysm (TAA) Status: Chronic Assessment & Plan: Follows outpatient with Dr. Morales. (6) Right lower lobe pneumonia Status: Acute Assessment & Plan: Possible, with asymmetric consolidation versus edema. Started on doxycycline. Clinical Quality Measures AMI/AHF: ASA po Prior to arrival: Yes FÁTIMA CAMACHO MD Oct 16, 2022 10:02
--- NOTE | 2022-10-16 10:18 | Diagnostic Imaging Report ---
INDICATION: Congestive heart failure. Comparison is made with prior examination 10/15/2022 FINDINGS: There is cardiomegaly. There is right pleural effusion and patchy right basal infiltrate. There is no pneumothorax. Mediastinum is unremarkable. IMPRESSION: Patchy right basilar infiltrate and right pleural effusion. Cardiomegaly. Dictated by: Dictated on workstation # [id number]
[2022-10-16] MEDS: RIVAROXABAN 20 MG TABLET (XARELTO) PO SCH (18:10)
[2022-10-17] VITALS (7 sets, daily range): BP systolic 100–122; BP diastolic 76–93
[2022-10-17] MEDS: RT-Ipratropium/Albuterol NEB 3 ML VIAL INH SCH ×6 (02:37→22:02)
[2022-10-17 05:13] LABS: BASOPHILS # (AUTO) 0.1 10^3/uL (0.0-0.1); BASOPHILS % (AUTO) 1 % (0-10); EOSINOPHILS # (AUTO) 0.1 10^3/uL (0.0-0.3); EOSINOPHILS % (AUTO) 2 % (0-10); HEMATOCRIT 42 % (40-54); HEMOGLOBIN 14.2 g/dL (13.3-17.7); LYMPHOCYTES # (AUTO) 1.1 10^3/uL (1.0-4.0); LYMPHOCYTES % (AUTO) 16 % (12-44); MEAN CORPUSCULAR HEMOGLOBIN 32 pg (25-34); MEAN CORPUSCULAR HGB CONC 34 g/dL (32-36); MEAN CORPUSCULAR VOLUME 94 fL (80-99); MEAN PLATELET VOLUME 11.5 fL (9.0-12.2); MONOCYTES # (AUTO) 0.4 10^3/uL (0.0-1.0); MONOCYTES % (AUTO) 6 % (0-12); NEUTROPHILS % (AUTO) 75 % (42-75); PLATELET COUNT 163 10^3/uL (130-400); WHITE BLOOD COUNT 6.7 10^3/uL (4.3-11.0)
[2022-10-17 05:24] LABS: ALBUMIN 3.7 GM/DL (3.2-4.5)
[2022-10-17 05:25] LABS: POTASSIUM 3.7 MMOL/L (3.6-5.0)
[2022-10-17 05:26] LABS: CALCIUM 9.1 MG/DL (8.5-10.1)
[2022-10-17 05:27] LABS: TOTAL PROTEIN 6.6 GM/DL (6.4-8.2)
[2022-10-17 05:29] LABS: BILIRUBIN,TOTAL 0.9 MG/DL (0.1-1.0)
[2022-10-17 05:31] LABS: CREATININE SERUM 0.7 MG/DL (0.60-1.30)
[2022-10-17] MEDS: FUROSEMIDE INJECTION 40 MG/4 ML VIAL IV SCH ×2 (06:38→16:03)
[2022-10-17] MEDS: DOCUSATE SODIUM 100 MG CAPSULE PO SCH ×2 (08:26→21:34)
[2022-10-17] MEDS: SENNOSIDES 8.6 MG (SENOKOT) TAB PO SCH ×2 (08:26→21:34)
[2022-10-17] MEDS: ASPIRIN 81 MG CHEWABLE TABLET PO SCH (08:26)
--- NOTE | 2022-10-17 08:54 | Progress Note ---
Subjective Subjective/Events-last exam States he is feeling fairly well. Reports plan for cardioversion later today. Has dry mouth. Still feels fatigued with activity. Didn't sleep well. Objective Exam Last Set of Vital Signs Vital Signs Date Time Temp Pulse Resp B/P (MAP) Pulse Ox O2 Delivery O2 Flow Rate FiO2 10/17/22 07:22 36.3 83 21 100/84 (89) 96 Room Air 10/15/22 22:10 21 Capillary Refill : Less Than 3 Seconds I&O Intake and Output 10/17/22 00:00 Intake Total 1400 ml Output Total 6475 ml Balance -5075 ml Intake Oral 1400 ml Output Urine Total 6475 ml General: Alert, No Acute Distress Lungs: Clear to Auscultation, Normal Air Movement Heart: Other (irregularly irregular, normal rate) Abdomen: Normal Bowel Sounds, Soft, No Tenderness Extremities: No Edema Neuro: Normal Speech Psych/Mental Status: Mood NL Results/Procedures Lab Laboratory Tests 10/17/22 04:52: White Blood Count 6.7, Red Blood Count 4.45, Hemoglobin 14.2, Hematocrit 42, Mean Corpuscular Volume 94, Mean Corpuscular Hemoglobin 32, Mean Corpuscular Hemoglobin Concent 34, Red Cell Distribution Width 14.3, Platelet Count 163, Mean Platelet Volume 11.5, Immature Granulocyte % (Auto) 0, Neutrophils (%) (Auto) 75, Lymphocytes (%) (Auto) 16, Monocytes (%) (Auto) 6, Eosinophils (%) (Auto) 2, Basophils (%) (Auto) 1, Neutrophils # (Auto) 5.0, Lymphocytes # (Auto) 1.1, Monocytes # (Auto) 0.4, Eosinophils # (Auto) 0.1, Basophils # (Auto) 0.1, Immature Granulocyte # (Auto) 0.0, Sodium Level 137, Potassium Level 3.7, Chloride Level 100, Carbon Dioxide Level 25, Anion Gap 12, Blood Urea Nitrogen 7, Creatinine 0.70, Estimat Glomerular Filtration Rate 102, BUN/Creatinine Ratio 10, Glucose Level 106H, Calcium Level 9.1, Corrected Calcium 9.3, Total Bilirubin 0.9, Aspartate Amino Transf (AST/SGOT) 30, Alanine Aminotransferase (ALT/SGPT) 22, Alkaline Phosphatase 58, Total Protein 6.6, Albumin 3.7 Assessment/Plan Assessment/Plan (1) Elevated brain natriuretic peptide (BNP) level Status: Acute Assessment & Plan: Suspecte acute CHF, echo pending, started on IV lasix. Appreciate Cardiology recommendations. (2) Atrial fibrillation with RVR Status: Acute Assessment & Plan: Rate controlled on IV cardizem, changed to oral and heart rate slightly increased, appreciate Cardiology recommendations. Continue Xarelto. 10/17 plan for cardioversion later today (3) Paroxysmal atrial fibrillation Status: Chronic (4) Coronary artery disease Status: Chronic Assessment & Plan: Stenting in Dec 2021. (5) Thoracic aortic aneurysm (TAA) Status: Chronic Assessment & Plan: Follows outpatient with Dr. Morales. (6) Right lower lobe pneumonia Status: Acute Assessment & Plan: Possible, with asymmetric consolidation versus edema. Started on doxycycline. (7) DVT prophylaxis Status: Acute Assessment & Plan: Xarelto Clinical Quality Measures AMI/AHF: ASA po Prior to arrival: Yes FÁTIMA CAMACHO MD Oct 17, 2022 08:54
[2022-10-17] MEDS ORDERED: dilTIAZem ER 180 MG CAPSULE PO SCH (09:00)
--- NOTE | 2022-10-17 09:06 | Progress Note - Cardiology ---
Cardiology SOAP Progress Note Subjective: No c/o CP or SOB No c/o palpitations, syncope or near syncope Objective: I&O/Vital Signs 10/18/22 10/18/22 10/19/22 10/19/22 21:48 23:41 00:00 01:00 Temp 36.5 Pulse 67 65 70 Resp 14 B/P (MAP) 108/82 (91) 115/76 (89) Pulse Ox 98 94 O2 Delivery Room Air Room Air Room Air 10/19/22 10/19/22 10/19/22 10/19/22 02:41 03:22 04:00 07:12 Temp 36.1 Pulse 66 65 77 Resp 12 B/P (MAP) 125/90 (102) 109/64 (79) Pulse Ox 99 97 97 O2 Delivery Room Air Room Air Room Air 10/19/22 08:00 Temp 35.9 Pulse 82 Resp 21 B/P (MAP) 157/114 (128) Pulse Ox 93 O2 Delivery Room Air 10/19/22 00:00 Intake Total 600 ml Output Total 1530 ml Balance -930 ml Constitutional: AAO x 3, well-developed, well-nourished Respiratory: No accessory muscle use, No respiratory distress; lungs clear to auscultation Cardiovascular: irregularly irregular; No JVD Gastrointestional: No tender; soft, audible bowel sounds Neurologic/Psychiatric: other (moves all extremities) Skin: No rash on exposed areas, No ulcerations on exposed areas Results/Procedures: Labs Laboratory Tests 10/19/22 04:18: White Blood Count 7.1, Red Blood Count 5.01, Hemoglobin 15.8, Hematocrit 47, Mean Corpuscular Volume 93, Mean Corpuscular Hemoglobin 32, Mean Corpuscular Hemoglobin Concent 34, Red Cell Distribution Width 14.0, Platelet Count 195, Mean Platelet Volume 10.9, Immature Granulocyte % (Auto) 0, Neutrophils (%) (Auto) 71, Lymphocytes (%) (Auto) 19, Monocytes (%) (Auto) 6, Eosinophils (%) (Auto) 3, Basophils (%) (Auto) 1, Neutrophils # (Auto) 5.0, Lymphocytes # (Auto) 1.4, Monocytes # (Auto) 0.4, Eosinophils # (Auto) 0.2, Basophils # (Auto) 0.1, Immature Granulocyte # (Auto) 0.0, Sodium Level 133L, Potassium Level 3.8, Chloride Level 101, Carbon Dioxide Level 21, Anion Gap 11, Blood Urea Nitrogen 14, Creatinine 0.82, Estimat Glomerular Filtration Rate 97, BUN/Creatinine Ratio 17, Glucose Level 88, Calcium Level 8.9, Corrected Calcium 9.1, Total Bilirubin 1.1H, Aspartate Amino Transf (AST/SGOT) 46H, Alanine Aminotransferase (ALT/SGPT) 33, Alkaline Phosphatase 65, Total Protein 6.1L, Albumin 3.7 Microbiology 10/17/22 MRSA Screen - Final, Complete MRSA not isolated A/P: Assessment: PAF (a-fib with RVR this hospitalization) - first dx during hospitalization on 12-15-21 - H/O cardioversion by Dinah Villagomez on 12-15-21 - ZIO monitor of 03-09-22 to 03-23-22 showed NSR; three 4-beat runs of WCT (rates up to approx 180 bpm); several runs of SVT up to 4 beats (rates up to 174 bpm) - OAC with Xarelto - reports compliance CAD - Cardiac cath of 12-14-[address] Villagomez: Normal central aortic pressure. Status post bare-metal stent placement to the mid left circumflex coronary artery for a non-ST elevation myocardial infarction with a 3.5 x 23 mm vision stent with 0% residual stenosis and VENTURA-3 flow. - ECHOCARDIOGRAM (12/12/2021): Moderate left ventricular dilatation with mild concentric hypertrophy. Severe left ventricular systolic dysfunction with an estimated ejection fraction of 25-30% with diffuse hypokinesis. The left ventricular diastolic function is indeterminate due to atrial fibrillation. The right ventricle is mildly dilated with a diameter of 4 cm in the parasternal long axis view. Systolic function is normal. TAPSE 2.1 cm. The left atrium is severely dilated with a volume index of 48 mL/m. The right atrium is severely dilated with an area of 37 cm. There is mild aortic regurgitation with a pressure half-time of 616 ms. There is moderate mitral regurgitation. There is moderate tricuspid regurgitation. The aortic root is mildly dilated with a diameter of 4 cm. The estimated pulmonary artery systolic pressure is 38 mmHg assuming a right atrial pressure of 5 mmHg. There are right and left pleural effusions. - ECHOCARDIOGRAM (03/15/2022) by Dr. Villagomez: Normal left ventricular chamber size with mild concentric hypertrophy. Normal left ventricular systolic function with an estimated ejection fraction of 60-65% with no regional wall motion abnormalities identified. Doppler parameters consistent with grade 1 diastolic dysfunction. The left atrium is severely dilated with a volume index of 46 mL/m. The right atrium is severely dilated with an area of 39 cm. There is mild aortic regurgitation. There is mild mitral regurgitation. The estimated pulmonary artery systolic pressure is 34 mmHg assuming a right atrial pressure of 5 mmHg. Compared to the previous study from 12/12/2021, there have been significant improvements in the left ventricular size and systolic function and mitral and tricuspid regurgitation. ICM - Echo of 12-12-[address] Villagomez prior to coronary intervention showed LVEF 25- 30% - Echo of 03-15-[address] Villagomez showed LVEF 60-65% HTN HLD Chronic marijuana use 2-3 alcohol drinks a day, chronic Non-compliance with medications - reports he quit medications other than Xarelto d/t side effects Plan: Remains in a-fib with an improved rate - continue OAC with Xarelto Pt reports he does not like to take "pharmaceutical" medications - discussed treatment plan of increasing his Cardizem to which he is agreeable He reports he has been compliant with Xarelto for at least the last 2 months without interruption We are advising cardioversion. We have discussed with the patient and he is agreeable. We will proceed later today Clinical Quality Measures AMI/AHF: ASA po Prior to arrival: Yes EJ ALDRIDGE Oct 17, 2022 09:06
[2022-10-17] MEDS ORDERED: NS IV 1000 ML 0 ML ONE (12:38)
[2022-10-17] MEDS ORDERED: proPOfol 200 MG/20 ML (DIPRIVAN) VIAL IV ONE (12:38)
--- NOTE | 2022-10-17 12:55 | Anesthesia-General Post-Op ---
MAC Patient Condition Mental Status/LOC: Same as Preop Cardiovascular: Satisfactory Nausea/Vomiting: Absent Respiratory: Satisfactory Pain: Controlled Complications: Absent Post Op Complications Complications None Follow Up Care/Instructions Patient Instructions None needed. Anesthesiology Discharge Order Discharge Order Patient is doing well, no complaints, stable vital signs, no apparent adverse anesthesia problems. No complications reported per nursing. [employer] Oct 17, 2022 12:55
--- NOTE | 2022-10-17 14:39 | Progress Note - Cardiology ---
Cardiology SOAP Progress Note Subjective: No cp or palp or syncope or shortness of breath at rest Gen weakness and malaise No focal weakness No n/v/d Objective: I&O/Vital Signs 10/17/22 10/17/22 10/17/22 10/17/22 02:38 03:41 07:06 07:16 Temp 36.3 Pulse 89 77 Resp 29 B/P (MAP) 108/85 (93) Pulse Ox 99 95 99 O2 Delivery Room Air Room Air Room Air 10/17/22 10/17/22 10/17/22 10/17/22 07:22 08:00 10:49 11:26 Temp 36.3 36.1 Pulse 83 89 Resp 21 14 B/P (MAP) 100/84 (89) 116/79 (91) Pulse Ox 96 99 95 O2 Delivery Room Air Room Air Room Air Room Air 10/17/22 12:27 Pulse 94 10/17/22 00:00 Intake Total 900 ml Output Total 4500 ml Balance -3600 ml Constitutional: AAO x 3, well-developed, well-nourished Respiratory: No accessory muscle use, No respiratory distress; lungs clear to auscultation Cardiovascular: irregularly irregular; No JVD Gastrointestional: No tender; soft, audible bowel sounds Neurologic/Psychiatric: other (moves all extremities) Skin: No rash on exposed areas, No ulcerations on exposed areas Results/Procedures: Labs Laboratory Tests 10/17/22 04:52: White Blood Count 6.7, Red Blood Count 4.45, Hemoglobin 14.2, Hematocrit 42, Mean Corpuscular Volume 94, Mean Corpuscular Hemoglobin 32, Mean Corpuscular Hemoglobin Concent 34, Red Cell Distribution Width 14.3, Platelet Count 163, Mean Platelet Volume 11.5, Immature Granulocyte % (Auto) 0, Neutrophils (%) (Auto) 75, Lymphocytes (%) (Auto) 16, Monocytes (%) (Auto) 6, Eosinophils (%) (Auto) 2, Basophils (%) (Auto) 1, Neutrophils # (Auto) 5.0, Lymphocytes # (Auto) 1.1, Monocytes # (Auto) 0.4, Eosinophils # (Auto) 0.1, Basophils # (Auto) 0.1, Immature Granulocyte # (Auto) 0.0, Sodium Level 137, Potassium Level 3.7, Chloride Level 100, Carbon Dioxide Level 25, Anion Gap 12, Blood Urea Nitrogen 7, Creatinine 0.70, Estimat Glomerular Filtration Rate 102, BUN/Creatinine Ratio 10, Glucose Level 106H, Calcium Level 9.1, Corrected Calcium 9.3, Total Bilirubin 0.9, Aspartate Amino Transf (AST/SGOT) 30, Alanine Aminotransferase (ALT/SGPT) 22, Alkaline Phosphatase 58, Total Protein 6.6, Albumin 3.7 Microbiology 10/15/22 Gram Stain - Final, Resulted 10/15/22 Sputum Culture - Preliminary, Resulted Culture In Progress Laboratory Tests 10/15/22 15:38 10/16/22 04:31 10/17/22 04:52 A/P: Assessment: PAF (a-fib with RVR this hospitalization) - first dx during hospitalization on 12-15-21 - H/O cardioversion by Dinah Villagomez on 12-15-21 - ZIO monitor of 03-09-22 to 03-23-22 showed NSR; three 4-beat runs of WCT (rates up to approx 180 bpm); several runs of SVT up to 4 beats (rates up to 174 bpm) - OAC with Xarelto - reports compliance CAD - Cardiac cath of 12-14-[address] Villagomez: Normal central aortic pressure. Status post bare-metal stent placement to the mid left circumflex coronary artery for a non-ST elevation myocardial infarction with a 3.5 x 23 mm vision stent with 0% residual stenosis and VENTURA-3 flow. - ECHOCARDIOGRAM (12/12/2021): Moderate left ventricular dilatation with mild concentric hypertrophy. Severe left ventricular systolic dysfunction with an estimated ejection fraction of 25-30% with diffuse hypokinesis. The left ventricular diastolic function is indeterminate due to atrial fibrillation. The right ventricle is mildly dilated with a diameter of 4 cm in the parasternal long axis view. Systolic function is normal. TAPSE 2.1 cm. The left atrium is severely dilated with a volume index of 48 mL/m. The right atrium is severely dilated with an area of 37 cm. There is mild aortic regurgitation with a pressure half-time of 616 ms. There is moderate mitral regurgitation. There is moderate tricuspid regurgitation. The aortic root is mildly dilated with a diameter of 4 cm. The estimated pulmonary artery systolic pressure is 38 mmHg assuming a right atrial pressure of 5 mmHg. There are right and left pleural effusions. - ECHOCARDIOGRAM (03/15/2022) by Dr. Villagomez: Normal left ventricular chamber size with mild concentric hypertrophy. Normal left ventricular systolic function with an estimated ejection fraction of 60-65% with no regional wall motion abnormalities identified. Doppler parameters consistent with grade 1 diastolic dysfunction. The left atrium is severely dilated with a volume index of 46 mL/m. The right atrium is severely dilated with an area of 39 cm. There is mild aortic regurgitation. There is mild mitral regurgitation. The estimated pulmonary artery systolic pressure is 34 mmHg assuming a right atrial pressure of 5 mmHg. Compared to the previous study from 12/12/2021, there have been significant improvements in the left ventricular size and systolic function and mitral and tricuspid regurgitation. ICM - Echo of 12-12-[address] Villagomez prior to coronary intervention showed LVEF 25- 30% - Echo of 03-15-[address] Villagomez showed LVEF 60-65% HTN HLD Chronic marijuana use 2-3 alcohol drinks a day, chronic Non-compliance with medications - reports he quit medications other than Xarelto d/t side effects Plan: * Given that he remains in a fib and that a fib with RVR seems to have contributed to the the cardiomyopathy that he was diagnosed with in Dec 2021 (resolved on subsequent echo of Mar 2022 after alevism of sinus rhythm) we recommend an attempt at alevism of sinus rhythm with electrical cardioversion. This was discussed with him. He provided informed consent. It was planned for today, but he informed at the last minute that he had fruit for breakfast that his cousin had brought him. Therefore, he was not suitable for gen anesthesia and the procedure has been postponed to tomorrow * Repeat echo is also recommended * We have interviewed him in detail and he says he has not been noncompliant with his oral anticoagulant at any time. He has been taking the full dose daily for many months Clinical Quality Measures AMI/AHF: ASA po Prior to arrival: Yes JOSUE ROUSSEAU MD FACP [facility] CCDS Oct 17, 2022 14:39
[2022-10-17] MEDS ORDERED: SPIRONOLACTONE 25 MG (ALDACTONE) TAB PO NR (15:00)
[2022-10-17] MEDS ORDERED: EMPAGLIFLOZIN 10 MG TABLET PO NR (15:00)
[2022-10-17] MEDS ORDERED: carvediloL 3.125 MG TABLET PO NR (15:00)
[2022-10-17] MEDS ORDERED: DIGOXIN 0.125 MG TABLET PO NR (15:00)
[2022-10-17] MEDS: RIVAROXABAN 20 MG TABLET (XARELTO) PO SCH (16:04)
[2022-10-17] MEDS: carvediloL 3.125 MG TABLET PO SCH (21:34)
[2022-10-18] VITALS (15 sets, daily range): BP systolic 94–128; BP diastolic 66–97
[2022-10-18] MEDS: RT-Ipratropium/Albuterol NEB 3 ML VIAL INH SCH ×4 (03:06→21:48)
[2022-10-18 04:58] LABS: BASOPHILS # (AUTO) 0.1 10^3/uL (0.0-0.1); BASOPHILS % (AUTO) 1 % (0-10); EOSINOPHILS # (AUTO) 0.2 10^3/uL (0.0-0.3); EOSINOPHILS % (AUTO) 2 % (0-10); HEMATOCRIT 46 % (40-54); LYMPHOCYTES # (AUTO) 1.2 10^3/uL (1.0-4.0); LYMPHOCYTES % (AUTO) 15 % (12-44); MEAN CORPUSCULAR HEMOGLOBIN 32 pg (25-34); MEAN CORPUSCULAR HGB CONC 35 g/dL (32-36); MEAN CORPUSCULAR VOLUME 94 fL (80-99); MEAN PLATELET VOLUME 11.3 fL (9.0-12.2); MONOCYTES # (AUTO) 0.4 10^3/uL (0.0-1.0); MONOCYTES % (AUTO) 5 % (0-12); NEUTROPHILS # (AUTO) 6.3 10^3/uL (1.8-7.8); NEUTROPHILS % (AUTO) 77 % (42-75); PLATELET COUNT 193 10^3/uL (130-400); WHITE BLOOD COUNT 8.2 10^3/uL (4.3-11.0)
[2022-10-18 05:13] LABS: ALBUMIN 3.9 GM/DL (3.2-4.5); POTASSIUM 3.8 MMOL/L (3.6-5.0)
[2022-10-18 05:14] LABS: CALCIUM 9.8 MG/DL (8.5-10.1)
[2022-10-18 05:17] LABS: BILIRUBIN,TOTAL 1.3 MG/DL (0.1-1.0)
[2022-10-18 05:19] LABS: CREATININE SERUM 0.77 MG/DL (0.60-1.30)
[2022-10-18] MEDS: FUROSEMIDE INJECTION 40 MG/4 ML VIAL IV SCH ×2 (06:10→17:06)
[2022-10-18] MEDS: carvediloL 3.125 MG TABLET PO SCH ×2 (09:00→20:20)
[2022-10-18] MEDS: dilTIAZem ER 120 MG CAPSULE PO SCH (09:00)
[2022-10-18] MEDS: EMPAGLIFLOZIN 10 MG TABLET PO SCH ×2 (09:00→13:41)
[2022-10-18] MEDS: ASPIRIN 81 MG CHEWABLE TABLET PO SCH ×2 (09:00→13:40)
[2022-10-18] MEDS: SPIRONOLACTONE 25 MG (ALDACTONE) TAB PO SCH (09:00)
[2022-10-18] MEDS: DIGOXIN 0.125 MG TABLET PO SCH ×2 (09:00→13:40)
[2022-10-18] MEDS: DOCUSATE SODIUM 100 MG CAPSULE PO SCH ×2 (09:00→20:20)
[2022-10-18] MEDS: SENNOSIDES 8.6 MG (SENOKOT) TAB PO SCH ×2 (09:00→20:20)
[2022-10-18] MEDS ORDERED: proPOfol 200 MG/20 ML (DIPRIVAN) VIAL IV ONE (11:10)
[2022-10-18] MEDS ORDERED: NS IV 1000 ML 1,000 ML ONE (11:11)
--- NOTE | 2022-10-18 12:43 | Progress Note ---
Subjective Subjective/Events-last exam Pt states he feels okay, just dry. He didn't have his cardioversion yesterday due to eating prior. Objective Exam Last Set of Vital Signs Vital Signs Date Time Temp Pulse Resp B/P (MAP) Pulse Ox O2 Delivery O2 Flow Rate FiO2 10/18/22 11:18 73 16 94/70 (78) 98 Room Air 10/18/22 07:40 36.3 10/17/22 19:10 21 Capillary Refill : Less Than 3 Seconds I&O Intake and Output 10/18/22 00:00 Intake Total 1910 ml Output Total 2100 ml Balance -190 ml Intake Oral 1910 ml Output Urine Total 2100 ml General: Alert, No Acute Distress Lungs: Clear to Auscultation, Normal Air Movement Heart: Other (irregularly irregular) Abdomen: Normal Bowel Sounds, Soft Extremities: No Edema Neuro: Normal Speech Psych/Mental Status: Mood NL Results/Procedures Lab Laboratory Tests 10/18/22 04:44: White Blood Count 8.2, Red Blood Count 4.95, Hemoglobin 16.0, Hematocrit 46, Mean Corpuscular Volume 94, Mean Corpuscular Hemoglobin 32, Mean Corpuscular Hemoglobin Concent 35, Red Cell Distribution Width 14.3, Platelet Count 193, Mean Platelet Volume 11.3, Immature Granulocyte % (Auto) 0, Neutrophils (%) (Auto) 77H, Lymphocytes (%) (Auto) 15, Monocytes (%) (Auto) 5, Eosinophils (%) (Auto) 2, Basophils (%) (Auto) 1, Neutrophils # (Auto) 6.3, Lymphocytes # (Auto) 1.2, Monocytes # (Auto) 0.4, Eosinophils # (Auto) 0.2, Basophils # (Auto) 0.1, Immature Granulocyte # (Auto) 0.0, Sodium Level 135, Potassium Level 3.8, Chloride Level 100, Carbon Dioxide Level 24, Anion Gap 11, Blood Urea Nitrogen 7, Creatinine 0.77, Estimat Glomerular Filtration Rate 99, BUN/Creatinine Ratio 9, Glucose Level 99, Calcium Level 9.8, Corrected Calcium 9.9, Total Bilirubin 1.3H, Aspartate Amino Transf (AST/SGOT) 40H, Alanine Aminotransferase (ALT/SGPT) 26, Alkaline Phosphatase 62, Total Protein 7.0, Albumin 3.9 Microbiology 10/17/22 MRSA Screen - Final, Complete MRSA not isolated Assessment/Plan Assessment/Plan (1) Acute systolic CHF (congestive heart failure) Status: Acute Assessment & Plan: Echo showed EF 30-35%, severe mitral valve regurgitation and moderate to severe tricuspid valve regurg. Appreciate Cardiology recommend ations, plan for cardioversion as he had improvement in EF previously after cardioversion. (2) Elevated brain natriuretic peptide (BNP) level Status: Acute Assessment & Plan: Suspected acute CHF, echo pending, started on IV lasix. Appreciate Cardiology recommendations.- see CHF dx. (3) Atrial fibrillation with RVR Status: Resolved Assessment & Plan: Rate controlled on IV cardizem, changed to oral and heart rate slightly increased, appreciate Cardiology recommendations. Continue Xarelto. 10/17 plan for cardioversion later today 10/18 no longer tachycardic, but still in afib, cardioversion unable to be done yesterday, plan for today. (4) Paroxysmal atrial fibrillation Status: Chronic (5) Coronary artery disease Status: Chronic Assessment & Plan: Stenting in Dec 2021. (6) Thoracic aortic aneurysm (TAA) Status: Chronic Assessment & Plan: Follows outpatient with Dr. Morales. (7) Right lower lobe pneumonia Status: Acute Assessment & Plan: Possible, with asymmetric consolidation versus edema. Started on doxycycline. (8) DVT prophylaxis Status: Acute Assessment & Plan: Xarelto Clinical Quality Measures AMI/AHF: ASA po Prior to arrival: Yes FÁTIMA CAMACHO MD Oct 18, 2022 12:43
--- NOTE | 2022-10-18 13:03 | Progress Note - Cardiology ---
Cardiology SOAP Progress Note Subjective: No cp or palp or syncope Shortness of breath better No n/v/d No focal weakness Gen weakness and malaise present Objective: I&O/Vital Signs 10/18/22 10/18/22 10/18/22 10/18/22 01:00 04:00 07:16 07:35 Pulse 82 90 67 B/P (MAP) 128/97 (107) Pulse Ox 92 99 O2 Delivery Room Air Room Air 10/18/22 10/18/22 10/18/22 10/18/22 07:40 07:51 08:00 11:18 Temp 36.3 Pulse 61 73 Resp 21 16 B/P (MAP) 97/ 97/77 (84) 94/70 (78) Pulse Ox 97 98 O2 Delivery Room Air Room Air Room Air 10/18/22 12:48 Pulse 62 Resp 16 B/P (MAP) 114/74 (87) Pulse Ox 95 O2 Delivery Nasal Cannula O2 Flow Rate 4.00 10/18/22 00:00 Intake Total 1160 ml Output Total 1750 ml Balance -590 ml Constitutional: AAO x 3, well-developed, well-nourished Respiratory: No accessory muscle use, No respiratory distress; lungs clear to auscultation Cardiovascular: irregularly irregular; No JVD Gastrointestional: No tender; soft, audible bowel sounds Neurologic/Psychiatric: other (moves all extremities) Skin: No rash on exposed areas, No ulcerations on exposed areas Results/Procedures: Labs Laboratory Tests 10/18/22 04:44: White Blood Count 8.2, Red Blood Count 4.95, Hemoglobin 16.0, Hematocrit 46, Mean Corpuscular Volume 94, Mean Corpuscular Hemoglobin 32, Mean Corpuscular Hemoglobin Concent 35, Red Cell Distribution Width 14.3, Platelet Count 193, Mean Platelet Volume 11.3, Immature Granulocyte % (Auto) 0, Neutrophils (%) (Auto) 77H, Lymphocytes (%) (Auto) 15, Monocytes (%) (Auto) 5, Eosinophils (%) (Auto) 2, Basophils (%) (Auto) 1, Neutrophils # (Auto) 6.3, Lymphocytes # (Auto) 1.2, Monocytes # (Auto) 0.4, Eosinophils # (Auto) 0.2, Basophils # (Auto) 0.1, Immature Granulocyte # (Auto) 0.0, Sodium Level 135, Potassium Level 3.8, Chloride Level 100, Carbon Dioxide Level 24, Anion Gap 11, Blood Urea Nitrogen 7, Creatinine 0.77, Estimat Glomerular Filtration Rate 99, BUN/Creatinine Ratio 9, Glucose Level 99, Calcium Level 9.8, Corrected Calcium 9.9, Total Bilirubin 1.3H, Aspartate Amino Transf (AST/SGOT) 40H, Alanine Aminotransferase (ALT/SGPT) 26, Alkaline Phosphatase 62, Total Protein 7.0, Albumin 3.9 Microbiology 10/17/22 MRSA Screen - Final, Complete MRSA not isolated A/P: Assessment: PAF (a-fib with RVR this hospitalization) - first dx during hospitalization on 12-15-21 - H/O cardioversion by Dinah Villagomez on 12-15-21 - ZIO monitor of 03-09-22 to 03-23-22 showed NSR; three 4-beat runs of WCT (rates up to approx 180 bpm); several runs of SVT up to 4 beats (rates up to 174 bpm) - OAC with Xarelto - reports compliance CAD - Cardiac cath of 12-14-[address] Villagomez: Normal central aortic pressure. Status post bare-metal stent placement to the mid left circumflex coronary artery for a non-ST elevation myocardial infarction with a 3.5 x 23 mm vision stent with 0% residual stenosis and VENTURA-3 flow. - Echo 12/12/2021: Moderate left ventricular dilatation with mild concentric hypertrophy. Severe left ventricular systolic dysfunction with an estimated ejection fraction of 25-30% with diffuse hypokinesis. Severe biatrial dilatation. There is mild aortic regurgitation with a pressure half-time of 616 ms. There is moderate mitral regurgitation. There is moderate tricuspid regurgitation. The aortic root is mildly dilated with a diameter of 4 cm. The estimated pulmonary artery systolic pressure is 38 mmHg assuming a right atrial pressure of 5 mmHg. - Echo 03-15-[address] Villagomez: LVEF 60-65% with no regional wall motion abnormalities identified. Grade 1 diastolic dysfunction. Marked biatrial dilatation. Mild MR. Mid AI, PASP 34+5 mmHg - Echo 10-16-22: Cardiomegaly (mild enlargement of LV, marked enlargement of both atria), global hypokinesis of LV, LVEF 30-35%, severe MR, mod to severe TR, mild AI, PASP 40-45 mmHg NICM - see cath and echo reports above HTN HLD Chronic marijuana use 2-3 alcohol drinks a day, chronic Non-compliance with medications - reports he quit medications other than Xarelto d/t side effects Plan: * We were able to electrically cardiovert to sinus rhythm today * We have added beta-mike, DON-inhib/ARB, spironolactone, dig and SGLT-2 inhib to treat HFrEF. Reduced CCB because of CHF and to provide more room on bp.Apparently he had been on these or similar meds previously but quit taking them because he doesn't like "pharmaceuticals." He did, however, continue to take his oral anticoagulants. * Monitor labs * Will need Life Vest at d/c Clinical Quality Measures AMI/AHF: ASA po Prior to arrival: Yes JOSUE ROUSSEAU MD [facility]S Oct 18, 2022 13:03
--- NOTE | 2022-10-18 13:09 | Anesthesia-General Post-Op ---
MAC Patient Condition Mental Status/LOC: Same as Preop Cardiovascular: Satisfactory Nausea/Vomiting: Absent Respiratory: Satisfactory Pain: Controlled Complications: Absent Post Op Complications Complications None Follow Up Care/Instructions Patient Instructions None needed. Anesthesiology Discharge Order Discharge Order Patient is doing well, no complaints, stable vital signs, no apparent adverse anesthesia problems. No complications reported per nursing. SARAH MALDONADO CRNA Oct 18, 2022 13:09
[2022-10-18] MEDS: RIVAROXABAN 20 MG TABLET (XARELTO) PO SCH (17:06)
--- NOTE | 2022-10-18 22:26 | OPERATIVE REPORT ---
DATE OF SERVICE: 10/18/2022 PREOPERATIVE DIAGNOSIS: Atrial fibrillation. POSTOPERATIVE DIAGNOSIS: Sinus rhythm. PROCEDURE: External electrical cardioversion. DESCRIPTION OF PROCEDURE: External electrical cardioversion was carried out after having obtained an informed consent. The nurse casting and locker room servicer provided short-acting anesthesia. We delivered 120 joules of synchronized shock through external patches, which restored sinus rhythm. The patient tolerated the procedure well. Job ID: [id number] DocumentID: [id number] Dictated Date: 10/18/2022 13:08:19 Refrigerating Engineer Date: 10/18/2022 22:23:00 Dictated By: JOSUE ROUSSEAU MD; MARNIE; FACP; FACC;
[2022-10-19] VITALS: BP 115/76
[2022-10-19] MEDS: RT-Ipratropium/Albuterol NEB 3 ML VIAL INH SCH (02:41)
[2022-10-19 03:22] VITALS: BP 125/90
[2022-10-19 04:00] VITALS: BP 109/64
[2022-10-19 04:44] LABS: BASOPHILS # (AUTO) 0.1 10^3/uL (0.0-0.1); BASOPHILS % (AUTO) 1 % (0-10); EOSINOPHILS # (AUTO) 0.2 10^3/uL (0.0-0.3); EOSINOPHILS % (AUTO) 3 % (0-10); HEMATOCRIT 47 % (40-54); HEMOGLOBIN 15.8 g/dL (13.3-17.7); LYMPHOCYTES # (AUTO) 1.4 10^3/uL (1.0-4.0); LYMPHOCYTES % (AUTO) 19 % (12-44); MEAN CORPUSCULAR HEMOGLOBIN 32 pg (25-34); MEAN CORPUSCULAR HGB CONC 34 g/dL (32-36); MEAN CORPUSCULAR VOLUME 93 fL (80-99); MEAN PLATELET VOLUME 10.9 fL (9.0-12.2); MONOCYTES # (AUTO) 0.4 10^3/uL (0.0-1.0); MONOCYTES % (AUTO) 6 % (0-12); NEUTROPHILS % (AUTO) 71 % (42-75); PLATELET COUNT 195 10^3/uL (130-400); WHITE BLOOD COUNT 7.1 10^3/uL (4.3-11.0)
[2022-10-19 05:05] LABS: ALBUMIN 3.7 GM/DL (3.2-4.5); BILIRUBIN,TOTAL 1.1 MG/DL (0.1-1.0); CALCIUM 8.9 MG/DL (8.5-10.1); CREATININE SERUM 0.82 MG/DL (0.60-1.30); POTASSIUM 3.8 MMOL/L (3.6-5.0); TOTAL PROTEIN 6.1 GM/DL (6.4-8.2)
[2022-10-19] MEDS: FUROSEMIDE INJECTION 40 MG/4 ML VIAL IV SCH (06:34)
[2022-10-19 08:00] VITALS: BP 157/114
[2022-10-19] MEDS: carvediloL 3.125 MG TABLET PO SCH (08:33)
[2022-10-19] MEDS: DOCUSATE SODIUM 100 MG CAPSULE PO SCH (08:33)
[2022-10-19] MEDS: DIGOXIN 0.125 MG TABLET PO SCH (08:33)
[2022-10-19] MEDS: SENNOSIDES 8.6 MG (SENOKOT) TAB PO SCH (08:33)
[2022-10-19] MEDS: ASPIRIN 81 MG CHEWABLE TABLET PO SCH (08:33)
[2022-10-19] MEDS: EMPAGLIFLOZIN 10 MG TABLET PO SCH (08:34)
[2022-10-19] MEDS: dilTIAZem ER 120 MG CAPSULE PO SCH (08:34)
[2022-10-19] MEDS: SPIRONOLACTONE 25 MG (ALDACTONE) TAB PO SCH (08:34)
--- NOTE | 2022-10-19 08:47 | Progress Note - Cardiology ---
Cardiology SOAP Progress Note Objective: I&O/Vital Signs 10/18/22 10/18/22 10/19/22 10/19/22 21:48 23:41 00:00 01:00 Temp 36.5 Pulse 67 65 70 Resp 14 B/P (MAP) 108/82 (91) 115/76 (89) Pulse Ox 98 94 O2 Delivery Room Air Room Air Room Air 10/19/22 10/19/22 10/19/22 10/19/22 02:41 03:22 04:00 07:12 Temp 36.1 Pulse 66 65 77 Resp 12 B/P (MAP) 125/90 (102) 109/64 (79) Pulse Ox 99 97 97 O2 Delivery Room Air Room Air Room Air 10/19/22 08:00 Temp 35.9 Pulse 82 Resp 21 B/P (MAP) 157/114 (128) Pulse Ox 93 O2 Delivery Room Air 10/19/22 00:00 Intake Total 600 ml Output Total 1530 ml Balance -930 ml Constitutional: AAO x 3, well-developed, well-nourished Respiratory: No accessory muscle use, No respiratory distress; lungs clear to auscultation Cardiovascular: irregularly irregular; No JVD Gastrointestional: No tender; soft, audible bowel sounds Extremities: no lower extremity edema bilateral Neurologic/Psychiatric: other (moves all extremities) Skin: No rash on exposed areas, No ulcerations on exposed areas Results/Procedures: Labs Laboratory Tests 10/19/22 04:18: White Blood Count 7.1, Red Blood Count 5.01, Hemoglobin 15.8, Hematocrit 47, Mean Corpuscular Volume 93, Mean Corpuscular Hemoglobin 32, Mean Corpuscular Hemoglobin Concent 34, Red Cell Distribution Width 14.0, Platelet Count 195, Mean Platelet Volume 10.9, Immature Granulocyte % (Auto) 0, Neutrophils (%) (Auto) 71, Lymphocytes (%) (Auto) 19, Monocytes (%) (Auto) 6, Eosinophils (%) (Auto) 3, Basophils (%) (Auto) 1, Neutrophils # (Auto) 5.0, Lymphocytes # (Auto) 1.4, Monocytes # (Auto) 0.4, Eosinophils # (Auto) 0.2, Basophils # (Auto) 0.1, Immature Granulocyte # (Auto) 0.0, Sodium Level 133L, Potassium Level 3.8, Chloride Level 101, Carbon Dioxide Level 21, Anion Gap 11, Blood Urea Nitrogen 14, Creatinine 0.82, Estimat Glomerular Filtration Rate 97, BUN/Creatinine Ratio 17, Glucose Level 88, Calcium Level 8.9, Corrected Calcium 9.1, Total Bilirubin 1.1H, Aspartate Amino Transf (AST/SGOT) 46H, Alanine Aminotransferase (ALT/SGPT) 33, Alkaline Phosphatase 65, Total Protein 6.1L, Albumin 3.7 Microbiology 10/17/22 MRSA Screen - Final, Complete MRSA not isolated Laboratory Tests 10/18/22 04:44 10/19/22 04:18 A/P: Assessment: PAF (a-fib with RVR this hospitalization) - first dx during hospitalization on 12-15-21 - H/O cardioversion by Dinah Villagomez on 12-15-21 - ZIO monitor of 03-09-22 to 03-23-22 showed NSR; three 4-beat runs of WCT (rates up to approx 180 bpm); several runs of SVT up to 4 beats (rates up to 174 bpm) - OAC with Xarelto - reports compliance - S/P cardioversion on 10-18-22 - SR alternating with a-fib/flutter, PAC's, PVC's CAD - Cardiac cath of 12-14-[address] Villagomez: Normal central aortic pressure. Status post bare-metal stent placement to the mid left circumflex coronary artery for a non-ST elevation myocardial infarction with a 3.5 x 23 mm vision stent with 0% residual stenosis and VENTURA-3 flow. - Echo 12/12/2021: Moderate left ventricular dilatation with mild concentric hypertrophy. Severe left ventricular systolic dysfunction with an estimated ejection fraction of 25-30% with diffuse hypokinesis. Severe biatrial dilatation. There is mild aortic regurgitation with a pressure half-time of 616 ms. There is moderate mitral regurgitation. There is moderate tricuspid regurgitation. The aortic root is mildly dilated with a diameter of 4 cm. The estimated pulmonary artery systolic pressure is 38 mmHg assuming a right atrial pressure of 5 mmHg. - Echo 03-15-[address] Vilalgomez: LVEF 60-65% with no regional wall motion abnormalities identified. Grade 1 diastolic dysfunction. Marked biatrial dilatation. Mild MR. Mid AI, PASP 34+5 mmHg - Echo 10-16-22: Cardiomegaly (mild enlargement of LV, marked enlargement of both atria), global hypokinesis of LV, LVEF 30-35%, severe MR, mod to severe TR, mild AI, PASP 40-45 mmHg NICM - see cath and echo reports above HTN HLD Chronic marijuana use 2-3 alcohol drinks a day, chronic Non-compliance with medications - reports he quit medications other than Xarelto d/t side effects - Apparently he had been on these or similar meds previously but quit taking them because he doesn't like "pharmaceuticals." He did, however, continue to take his oral anticoagulants. Plan: * Converted to SR with cardioversion yesterday, but continues to have episodes of PAF/flutter with PVC's and PAC's * Continue beta-mike, DON-inhib/ARB, spironolactone, dig and SGLT-2 inhib to treat HFrEF. * Change IV Lasix to oral * Advised compliance with medications * Monitor labs * Awaiting Life Vest placement Clinical Quality Measures AMI/AHF: ASA po Prior to arrival: Yes EJ ALDRIDGE Oct 19, 2022 08:47
--- NOTE | 2022-10-19 08:51 | Progress Note ---
Subjective Subjective/Events-last exam Pt states he is feeling fine, doesn't feel any pain or abnormalities. Objective Exam Last Set of Vital Signs Vital Signs Date Time Temp Pulse Resp B/P (MAP) Pulse Ox O2 Delivery O2 Flow Rate FiO2 10/19/22 08:00 35.9 82 21 157/114 (128) 93 Room Air 10/18/22 12:48 4.00 10/17/22 19:10 21 Capillary Refill : Less Than 3 Seconds I&O Intake and Output 10/18/22 23:59 Intake Total 600 ml Output Total 1930 ml Balance -1330 ml Intake Oral 600 ml Output Urine Total 1930 ml General: Alert, No Acute Distress Lungs: Clear to Auscultation, Normal Air Movement Heart: Regular Rate, No Murmurs Abdomen: Normal Bowel Sounds, Soft Extremities: No Edema Neuro: Normal Speech Psych/Mental Status: Mood NL Results/Procedures Lab Laboratory Tests 10/19/22 04:18: White Blood Count 7.1, Red Blood Count 5.01, Hemoglobin 15.8, Hematocrit 47, Mean Corpuscular Volume 93, Mean Corpuscular Hemoglobin 32, Mean Corpuscular Hemoglobin Concent 34, Red Cell Distribution Width 14.0, Platelet Count 195, Mean Platelet Volume 10.9, Immature Granulocyte % (Auto) 0, Neutrophils (%) (Auto) 71, Lymphocytes (%) (Auto) 19, Monocytes (%) (Auto) 6, Eosinophils (%) (Auto) 3, Basophils (%) (Auto) 1, Neutrophils # (Auto) 5.0, Lymphocytes # (Auto) 1.4, Monocytes # (Auto) 0.4, Eosinophils # (Auto) 0.2, Basophils # (Auto) 0.1, Immature Granulocyte # (Auto) 0.0, Sodium Level 133L, Potassium Level 3.8, Chloride Level 101, Carbon Dioxide Level 21, Anion Gap 11, Blood Urea Nitrogen 14, Creatinine 0.82, Estimat Glomerular Filtration Rate 97, BUN/Creatinine Ratio 17, Glucose Level 88, Calcium Level 8.9, Corrected Calcium 9.1, Total Bilirubin 1.1H, Aspartate Amino Transf (AST/SGOT) 46H, Alanine Aminotransferase (ALT/SGPT) 33, Alkaline Phosphatase 65, Total Protein 6.1L, Albumin 3.7 Microbiology 10/17/22 MRSA Screen - Final, Complete MRSA not isolated Assessment/Plan Assessment/Plan (1) Acute systolic CHF (congestive heart failure) Status: Acute Assessment & Plan: Echo showed EF 30-35%, severe mitral valve regurgitation and moderate to severe tricuspid valve regurg. Appreciate Cardiology recommendatio ns, plan for cardioversion as he had improvement in EF previously after cardioversion. 10/19 status post cardioversion, continues to have widely varying heart rates, waiting on LifeVest and appreciate Cardiology recommendations (2) Elevated brain natriuretic peptide (BNP) level Status: Acute Assessment & Plan: Suspected acute CHF, started on IV lasix. Appreciate Cardiology recommendations.- see CHF dx. (3) Atrial fibrillation with RVR Status: Resolved Assessment & Plan: Rate controlled on IV cardizem, changed to oral and heart rate slightly increased, appreciate Cardiology recommendations. Continue Xarelto. 10/17 plan for cardioversion later today 10/18 no longer tachycardic, but still in afib, cardioversion unable to be done yesterday, plan for today. 10/19 cardioversion done 10/18, appreciate Cardiology recommendations (4) Paroxysmal atrial fibrillation Status: Chronic (5) Coronary artery disease Status: Chronic Assessment & Plan: Stenting in Dec 2021. (6) Thoracic aortic aneurysm (TAA) Status: Chronic Assessment & Plan: Follows outpatient with Dr. Morales. (7) Right lower lobe pneumonia Status: Acute Assessment & Plan: Possible, with asymmetric consolidation versus edema. Started on doxycycline. (8) DVT prophylaxis Status: Acute Assessment & Plan: Xarelto Clinical Quality Measures AMI/AHF: ASA po Prior to arrival: Yes FÁTIMA CAMACHO MD Oct 19, 2022 08:51
[2022-10-19 11:52] VITALS: BP 152/92
[2022-10-19] MEDS ORDERED: FURO40TA4 PO (11:53)
[2022-10-19] MEDS ORDERED: DIGO125T18 PO (11:53)
[2022-10-19] MEDS ORDERED: CARV3.122 PO (11:53)
[2022-10-19] MEDS ORDERED: SPIR25TA5 PO (11:53)
[2022-10-19] MEDS ORDERED: DILT-27 PO (11:53)
[2022-10-19] MEDS ORDERED: LISI5TAB20 PO (11:53)
[2022-10-19] MEDS ORDERED: ASPI81TA64 PO (11:53)
[2022-10-19] MEDS ORDERED: EMPA10TA PO (11:53)
--- NOTE | 2022-10-19 12:14 | Progress Note - Cardiology ---
Cardiology SOAP Progress Note Subjective: Gen weakness present No focal weakness Breathing has improved No cp or palp or syncope No n/v/d Objective: I&O/Vital Signs 10/19/22 10/19/22 10/19/22 10/19/22 01:00 02:41 03:22 04:00 Temp 36.1 Pulse 70 66 65 Resp 12 B/P (MAP) 125/90 (102) 109/64 (79) Pulse Ox 99 97 97 O2 Delivery Room Air Room Air Room Air 10/19/22 10/19/22 10/19/22 10/19/22 07:12 07:29 07:31 08:00 Pulse 77 99 78 Pulse Ox 96 O2 Delivery Room Air 10/19/22 10/19/22 10/19/22 08:00 11:09 11:52 Temp 35.9 36.3 Pulse 82 97 Resp 21 18 B/P (MAP) 157/114 (128) 152/92 (112) Pulse Ox 93 98 97 O2 Delivery Room Air Room Air Room Air 10/19/22 00:00 Intake Total 600 ml Output Total 1530 ml Balance -930 ml Constitutional: AAO x 3, well-developed, well-nourished Respiratory: No accessory muscle use, No respiratory distress; lungs clear to auscultation Cardiovascular: irregularly irregular; No JVD Gastrointestional: No tender; soft, audible bowel sounds Extremities: no lower extremity edema bilateral Neurologic/Psychiatric: other (moves all extremities) Skin: No rash on exposed areas, No ulcerations on exposed areas Results/Procedures: Labs Laboratory Tests 10/19/22 04:18: White Blood Count 7.1, Red Blood Count 5.01, Hemoglobin 15.8, Hematocrit 47, Mean Corpuscular Volume 93, Mean Corpuscular Hemoglobin 32, Mean Corpuscular Hemoglobin Concent 34, Red Cell Distribution Width 14.0, Platelet Count 195, Mean Platelet Volume 10.9, Immature Granulocyte % (Auto) 0, Neutrophils (%) (Auto) 71, Lymphocytes (%) (Auto) 19, Monocytes (%) (Auto) 6, Eosinophils (%) (Auto) 3, Basophils (%) (Auto) 1, Neutrophils # (Auto) 5.0, Lymphocytes # (Auto) 1.4, Monocytes # (Auto) 0.4, Eosinophils # (Auto) 0.2, Basophils # (Auto) 0.1, Immature Granulocyte # (Auto) 0.0, Sodium Level 133L, Potassium Level 3.8, Chloride Level 101, Carbon Dioxide Level 21, Anion Gap 11, Blood Urea Nitrogen 14, Creatinine 0.82, Estimat Glomerular Filtration Rate 97, BUN/Creatinine Ratio 17, Glucose Level 88, Calcium Level 8.9, Corrected Calcium 9.1, Total Bilirubin 1.1H, Aspartate Amino Transf (AST/SGOT) 46H, Alanine Aminotransferase (ALT/SGPT) 33, Alkaline Phosphatase 65, Total Protein 6.1L, Albumin 3.7, Digoxin Level < 0.30L Microbiology 10/17/22 MRSA Screen - Final, Complete MRSA not isolated Laboratory Tests 10/18/22 04:44 10/19/22 04:18 A/P: Assessment: PAF (a-fib with RVR this hospitalization) - first dx during hospitalization on 12-15-21 - H/O cardioversion by Dinah Villagomez on 12-15-21 - ZIO monitor of 03-09-22 to 03-23-22 showed NSR; three 4-beat runs of WCT (rates up to approx 180 bpm); several runs of SVT up to 4 beats (rates up to 174 bpm) - OAC with Xarelto - reports compliance - S/P cardioversion on 10-18-22 - SR alternating with a-fib/flutter, PAC's, PVC's CAD - Cardiac cath of 12-14-[address] Villagomez: Normal central aortic pressure. Status post bare-metal stent placement to the mid left circumflex coronary artery for a non-ST elevation myocardial infarction with a 3.5 x 23 mm vision stent with 0% residual stenosis and VENTURA-3 flow. - Echo 12/12/2021: Moderate left ventricular dilatation with mild concentric hypertrophy. Severe left ventricular systolic dysfunction with an estimated ejection fraction of 25-30% with diffuse hypokinesis. Severe biatrial dilatation. There is mild aortic regurgitation with a pressure half-time of 616 ms. There is moderate mitral regurgitation. There is moderate tricuspid regurgitation. The aortic root is mildly dilated with a diameter of 4 cm. The estimated pulmonary artery systolic pressure is 38 mmHg assuming a right atrial pressure of 5 mmHg. - Echo 03-15-[address] Villagomez: LVEF 60-65% with no regional wall motion abnormalities identified. Grade 1 diastolic dysfunction. Marked biatrial dilatation. Mild MR. Mid AI, PASP 34+5 mmHg - Echo 10-16-22: Cardiomegaly (mild enlargement of LV, marked enlargement of both atria), global hypokinesis of LV, LVEF 30-35%, severe MR, mod to severe TR, mild AI, PASP 40-45 mmHg NICM - see cath and echo reports above HTN HLD Chronic marijuana use 2-3 alcohol drinks a day, chronic Non-compliance with medications - reports he quit medications other than Xarelto d/t side effects - Apparently he had been on these or similar meds previously but quit taking them because he doesn't like "pharmaceuticals." He did, however, continue to take his oral anticoagulants. Plan: * Converted to SR with cardioversion yesterday, but continues to have episodes of PAF/flutter with PVC's and PAC's * Continue beta-mike, DON-inhib/ARB, spironolactone, dig and SGLT-2 inhib to treat HFrEF. * Change IV Lasix to oral * Advised compliance with medications * Monitor labs * Awaiting Life Vest placement * We discussed his CV issues with him in detail, including his cardiac regimen and the need for compliance Clinical Quality Measures AMI/AHF: ASA po Prior to arrival: Yes JOSUE ROUSSEAU MD [facility] CCDS Oct 19, 2022 12:14
[2022-10-19 15:46] VITALS: BP 115/80
--- NOTE | 2022-10-19 15:56 | Discharge Summary ---
Discharge Summary Hospital Course Problems/Diagnosis: (1) Acute systolic CHF (congestive heart failure) Status: Acute Assessment & Plan: Echo showed EF 30-35%, severe mitral valve regurgitation and moderate to severe tricuspid valve regurg. Appreciate Cardiology recommendations, plan for cardioversion as he had improvement in EF previously after cardioversion. 10/19 status post cardioversion, continues to have widely varying heart rates, LifeVest orderd and fitted before discharge. (2) Elevated brain natriuretic peptide (BNP) level Status: Acute Assessment & Plan: Suspected acute CHF, started on IV lasix. Appreciate Cardiology recommendations.- see CHF dx. (3) Atrial fibrillation with RVR Status: Resolved Resolution Date/Time: 10/18/22 @ 12:41 Assessment & Plan: Rate controlled on IV cardizem, changed to oral and heart rate slightly increased, appreciate Cardiology recommendations. Continue Xarel to. 10/17 plan for cardioversion later today 10/18 no longer tachycardic, but still in afib, cardioversion unable to be done yesterday, plan for today. 10/19 cardioversion done 10/18 (4) Paroxysmal atrial fibrillation Status: Chronic (5) Coronary artery disease Status: Chronic Assessment & Plan: Stenting in Dec 2021. (6) Thoracic aortic aneurysm (TAA) Status: Chronic Assessment & Plan: Follows outpatient with Dr. Morales. (7) Right lower lobe pneumonia Status: Acute Assessment & Plan: Possible, with asymmetric consolidation versus edema. Started on doxycycline, prescribed course to complete outpatient. Hospital Course Date of Admission: Oct 15, 2022 at 15:12 Admission Diagnosis : Family Physician/Provider: [place] Date of Discharge: 10/19/22 Discharge Diagnosis: See problem list Hospital Course: See problem list Labs and Pending Lab Test: Laboratory Tests 10/19/22 04:18: White Blood Count 7.1, Red Blood Count 5.01, Hemoglobin 15.8, Hematocrit 47, Mean Corpuscular Volume 93, Mean Corpuscular Hemoglobin 32, Mean Corpuscular Hemoglobin Concent 34, Red Cell Distribution Width 14.0, Platelet Count 195, Mean Platelet Volume 10.9, Immature Granulocyte % (Auto) 0, Neutrophils (%) (Auto) 71, Lymphocytes (%) (Auto) 19, Monocytes (%) (Auto) 6, Eosinophils (%) (Auto) 3, Basophils (%) (Auto) 1, Neutrophils # (Auto) 5.0, Lymphocytes # (Auto) 1.4, Monocytes # (Auto) 0.4, Eosinophils # (Auto) 0.2, Basophils # (Auto) 0.1, Immature Granulocyte # (Auto) 0.0, Sodium Level 133L, Potassium Level 3.8, Chlo ride Level 101, Carbon Dioxide Level 21, Anion Gap 11, Blood Urea Nitrogen 14, Creatinine 0.82, Estimat Glomerular Filtration Rate 97, BUN/Creatinine Ratio 17, Glucose Level 88, Calcium Level 8.9, Corrected Calcium 9.1, Total Bilirubin 1.1H , Aspartate Amino Transf (AST/SGOT) 46H, Alanine Aminotransferase (ALT/SGPT) 33, Alkaline Phosphatase 65, Total Protein 6.1L, Albumin 3.7, Digoxin Level < 0.30L Microbiology 10/17/22 MRSA Screen - Final, Complete MRSA not isolated Home Meds Active Jardiance (Empagliflozin) 10 Mg Tablet 10 Mg PO DAILY Furosemide 40 Mg Tablet 40 Mg PO DAILY Children's Aspirin (Aspirin) 81 Mg Tab.chew 81 Mg PO DAILY Spironolactone 25 Mg Tablet 25 Mg PO DAILY Lisinopril 5 Mg Tablet 5 Mg PO DAILY Diltiazem 24Hr ER (Diltiazem HCl) 120 Mg Cap.er.24h 120 Mg PO DAILY Carvedilol 3.125 Mg Tablet 3.125 Mg PO BID Digox (Digoxin) 125 Mcg (0.125 Mg) Tablet 0.125 Mg PO DAILY Reported Oregaresp Cap 2 Ea PO TID Krill Oil 500 mg Softgel (Krill/Om-3/Dha/Epa/Phospho/Ast) 500MG-86MG Capsule 1 Each PO BID Xarelto Tablet (Rivaroxaban) 20 Mg Tablet 20 Mg PO DAILY Assessment/Pt DC Instructions Follow up with Cardiology as directed. Follow up with primary provider within a week of discharge. Discharge Diet: Cardiac Diet Activity as Tolerated: Yes Discharge Physical Examination Allergies: Coded Allergies: No Allergy Information Available (Unverified , 12/10/21) General Appearance: No Apparent Distress, WD/WN Respiratory: Lungs Clear, Normal Breath Sounds Cardiovascular: Regular Rate, Rhythm Gastrointestinal: Normal Bowel Sounds, Non Tender, Soft Skin: Normal Color, Warm/Dry Neurologic/Psychiatric: Alert, Normal Mood/Affect Clinical Quality Measures AMI/AHF: ASA po Prior to arrival: Yes FÁTIMA CAMACHO MD Oct 19, 2022 15:56
[2022-10-19] MEDS: RIVAROXABAN 20 MG TABLET (XARELTO) PO SCH (17:24)
[2022-10-20] MEDS ORDERED: FUROSEMIDE 40 MG TABLET PO SCH (09:00)
== END 2022-10-19 17:30 | disposition home or self-care (01) ==
LOC: EDUNIT# 11:05 → ER 11:09 → CSD 15:12 → UNDOADMOB 15:12 → CSD 15:27 → UNDODISOB 10-19 17:30
PROVIDERS: ADMIT Internal Medicine; ATTEND Family Medicine
DX: I48.0 Paroxysmal atrial fibrillation (principal); I50.21 Acute systolic (congestive) heart failure; R79.89 Other specified abnormal findings of blood chemistry; I25.10 Atherosclerotic heart disease of native coronary artery without angina pectoris; I71.20 Thoracic aortic aneurysm, without rupture, unspecified; J18.1 Lobar pneumonia, unspecified organism; J44.9 Chronic obstructive pulmonary disease, unspecified; I42.8 Other cardiomyopathies; I11.0 Hypertensive heart disease with heart failure; E78.5 Hyperlipidemia, unspecified; F12.90 Cannabis use, unspecified, uncomplicated; F17.200 Nicotine dependence, unspecified, uncomplicated; Z91.198 Patient's noncompliance with other medical treatment and regimen for other reason; Z79.01 Long term (current) use of anticoagulants
CPT/HCPCS: 36415; 71045; 80048; 80053; 80061; 80162; 83735; 83874; 83880; 84484; 85025; 85610; 85730; 86141; 87070; 87081; 87205; 92960; 93005; 93041; 93306; 94640; 94664; 94760; 96376

== ENCOUNTER 2022-10-26 17:49 | Observation (INO) | payer MEDICARE, MEDICAID ==
[~2022-10-26] VITALS: Ht 183 cm; Wt 63.0 kg
[~2022-10-26 17:49] MED LIST changes: +ASPI81TA64 PO; +CARV3.122 PO; +DILT-27 PO; +EMPA10TA PO; +FURO40TA4 PO; +KRIL1CAP31 PO; +LISI5TAB20 PO; +SPIR25TA5 PO; +[UNRECOGNIZED DRUG - OTHER] PO
--- NOTE | 2022-10-26 18:13 | ED GI ---
General Chief Complaint: Abdominal/GI Problems Stated Complaint: CONSTIPATION Source of Information: Patient Exam Limitations: No Limitations History of Present Illness Date Seen by Provider: Oct 26, 2022 Time Seen by Provider: 18:12 Initial Comments Patient is a 67-year-old male who presents to the emergency room with a chief complaint of abdominal pain, nausea vomiting and "constipation" over the last 11 days. He was recently in the hospital, discharged last week after an episode of A-fib. He has congestive heart failure and is currently wearing a LifeVest. He is compliant with his daily medications which includes chronic anticoagulation but has not been able to take any of his medications today due to the vomiting. He endorses diffuse abdominal cramping/fullness. He has tried multiple wadh-oup-urrpjxb remedies to try and alleviate the constipation to include enemas. He is still very nauseated, dry heaving. He did vomit coffee-ground emesis while I was in the room. He is not on any ukhm-oui-jvpdgqc or prescription PPIs. He has a history of marijuana use and alcoholism. No all ergies to medications. No reported recent fevers or chills, shortness of breath or cough. He states he is urinated twice today. Timing/Duration: Other (11 days) Severity/Quality: Moderate, Cramping Location: Generalized Abdomen Radiation: No Radiation Associated Symptoms: Nausea/Vomiting, Weakness Allergies and Home Medications Allergies Coded Allergies: No Allergy Information Available (Unverified , 12/10/21) Patient Home Medication List Home Medication List Reviewed: Yes Aspirin (Children's Aspirin) 81 Mg Tab.chew, 81 MG PO DAILY Prescribed by: EJ ALDRIDGE on 10/19/22 1153 Carvedilol (Carvedilol) 3.125 Mg Tablet, 3.125 MG PO BID Prescribed by: EJ ALDRIDGE on 10/19/22 1153 Digoxin (Digox) 125 Mcg (0.125 Mg) Tablet, 0.125 MG PO DAILY Prescribed by: EJ ALDRIDGE on 10/19/22 115 Diltiazem HCl (Diltiazem 24Hr ER) 120 Mg Cap.er.24h, 120 MG PO DAILY Prescribed by: EJ ALDRIDGE on 10/19/22 115 Empagliflozin (Jardiance) 10 Mg Tablet, 10 MG PO DAILY Prescribed by: EJ ALDRIDGE on 10/19/22 1153 Furosemide (Furosemide) 40 Mg Tablet, 40 MG PO DAILY Prescribed by: EJ ALDRIDGE on 10/19/22 115 Krill/Om-3/Dha/Epa/Phospho/Ast (Krill Oil 500 mg Softgel) 500MG-86MG Capsule, 1 EACH PO BID, (Reported) Entered as Reported by: CRISTINA CANTU on 10/16/22914 Lisinopril (Lisinopril) 5 Mg Tablet, 5 MG PO DAILY Prescribed by: EJ ALDRIDGE on 10/19/221152 Rivaroxaban (Xarelto Tablet) 20 Mg Tablet, 20 MG PO DAILY, (Reported) Entered as Reported by: CRISTINA CANTU on 10/16/22914 Spironolactone (Spironolactone) 25 Mg Tablet, 25 MG PO DAILY Prescribed by: EJ ALDRIDGE on 10/19/221152 [Oregaresp] CAP, 2 EA PO TID, (Reported) Entered as Reported by: CRISTINA CANTU on 10/16/22916 Review of Systems Review of Systems Constitutional: see HPI, malaise EENTM: No Symptoms Reported Respiratory: No Symptoms Reported Cardiovascular: No Symptoms Reported Gastrointestinal: Abdominal Pain, Constipated, Nausea, Vomiting, Other (vomiting blood) Genitourinary: No Symptoms Reported Musculoskeletal: no symptoms reported Past Sujcywz-Ukpopb-Xwajek Hx Past Medical History Surgery/Hospitalization HX: A FIB CARDIAC STENT Surgeries: Yes Coronary Stent Respiratory: Yes COPD Currently Using CPAP: No Currently Using BIPAP: No Cardiac: Yes Aneurysm, Atrial Fibrillation, Irregular Heartbeat Family Medical History No Pertinent Family Hx Physical Exam Vital Signs Vital Signs - First Documented 10/26/22 18:07 Temp 36.0 Pulse 52 Resp 23 B/P (MAP) 146/101 (116) Pulse Ox 100 O2 Delivery Room Air Capillary Refill : Height/Weight/BMI Height: '" Weight: lbs. oz. kg; 18.07 BMI Method: General Appearance: no apparent distress, thin HEENT: PERRL/EOMI Respiratory: lungs clear, normal breath sounds, no respiratory distress, no accessory muscle use Cardiovascular: regular rate, rhythm (intermittently irregular) Peripheral Pulses: 2+ Radial Pulses (R), 2+ Radial Pulses (L) Gastrointestinal: abnormal bowel sounds (hyperactive), distended Extremities: normal range of motion, normal inspection, no pedal edema Neurologic/Psychiatric: no motor/sensory deficits, alert, normal mood/affect, oriented x 3 Skin: normal color, warm/dry Progress/Results/Core Measures Results/Orders Lab Results Laboratory Tests Test 10/26/22 18:10 Range/Units White Blood Count 18.3 H 4.3-11.0 10^3/uL Red Blood Count 6.19 H 4.30-5.52 10^6/uL Hemoglobin 19.8 H 13.3-17.7 g/dL Hematocrit 57 H 40-54 % Mean Corpuscular Volume 93 80-99 fL Mean Corpuscular Hemoglobin 32 25-34 pg Mean Corpuscular Hemoglobin Concent 35 32-36 g/dL Red Cell Distribution Width 13.7 10.0-14.5 % Platelet Count 259 130-400 10^3/uL Mean Platelet Volume 11.1 9.0-12.2 fL Immature Granulocyte % (Auto) 1 % Neutrophils (%) (Auto) 91 H 42-75 % Lymphocytes (%) (Auto) 5 L 12-44 % Monocytes (%) (Auto) 4 0-12 % Eosinophils (%) (Auto) 0 0-10 % Basophils (%) (Auto) 0 0-10 % Neutrophils # (Auto) 16.5 H 1.8-7.8 10^3/uL Lymphocytes # (Auto) 0.9 L 1.0-4.0 10^3/uL Monocytes # (Auto) 0.7 0.0-1.0 10^3/uL Eosinophils # (Auto) 0.0 0.0-0.3 10^3/uL Basophils # (Auto) 0.0 0.0-0.1 10^3/uL Immature Granulocyte # (Auto) 0.1 0.0-0.1 10^3/uL Neutrophils % (Manual) 83 % Lymphocytes % (Manual) 5 % Monocytes % (Manual) 4 % Band Neutrophils 8 % Platelet Estimate ADEQUATE Blood Morphology Comment NORMAL Prothrombin Time 15.4 H 12.2-14.7 SEC INR Comment 1.2 0.8-1.4 Activated Partial Thromboplast Time 40 H 24-35 SEC Sodium Level 137 135-145 MMOL/L Potassium Level 4.4 3.6-5.0 MMOL/L Chloride Level 99 98-107 MMOL/L Carbon Dioxide Level 21 21-32 MMOL/L Anion Gap 17 H 5-14 MMOL/L Blood Urea Nitrogen 32 H 7-18 MG/DL Creatinine 1.09 0.60-1.30 MG/DL Estimat Glomerular Filtration Rate 74 BUN/Creatinine Ratio 29 Glucose Level 181 H 70-105 MG/DL Calcium Level 10.6 H 8.5-10.1 MG/DL Corrected Calcium 10.2 H 8.5-10.1 MG/DL Total Bilirubin 1.3 H 0.1-1.0 MG/DL Aspartate Amino Transf (AST/SGOT) 50 H 5-34 U/L Alanine Aminotransferase (ALT/SGPT) 55 0-55 U/L Alkaline Phosphatase 70 40-136 U/L Total Protein 8.1 6.4-8.2 GM/DL Albumin 4.5 3.2-4.5 GM/DL My Orders Orders - JUAN SALINAS MD Ed Iv/Invasive Line Start (10/26/22 18:26) Cbc With Automated Diff (10/26/22 18:26) Protime With Inr (10/26/22 18:26) Partial Thromboplastin Time (10/26/22 18:26) Comprehensive Metabolic Panel (10/26/22 18:26) Abdomen/Kub 1view (10/26/22 18:26) Ns Iv 500 Ml (Ns Iv 500 Ml) (10/26/22 18:26) Promethazine Injection (Phenergan Injec (10/26/22 18:30) Pantoprazole Injection (Pantoprazole Inj (10/26/22 18:30) Manual Differential (10/26/22 18:10) Ct Abdomen/Pelvis W (10/26/22 19:48) Iohexol Injection (Omnipaque 350 Mg/Ml 1 (10/26/22 20:00) Received Contrast (Hold Metformin- Contr (10/26/22 20:00) Ns (Ivpb) 100 Ml (Sodium Chloride 0.9% 1 (10/26/22 20:00) Ed Admission (Communication) (10/26/22 21:02) Medications Given in ED Current Medications Medications Dose Ordered Sig/Tomasz Route Start Time Stop Time Status Last Admin Dose Admin Iohexol 100 ml ONCE ONCE IV 10/26/22 20:00 10/26/22 20:01 DC 10/26/22 20:08 80 ML Pantoprazole 80 mg ONCE ONCE IV 10/26/22 18:30 10/26/22 18:31 DC 10/26/22 18:36 80 MG Promethazine HCl 25 mg ONCE ONCE IVP 10/26/22 18:30 10/26/22 18:31 DC 10/26/22 18:36 25 MG Sodium Chloride 100 ml ONCE ONCE IV 10/26/22 20:00 10/26/22 20:01 DC 10/26/22 20:09 80 ML Vital Signs/I&O 10/26/22 18:07 Temp 36.0 Pulse 52 Resp 23 B/P (MAP) 146/101 (116) Pulse Ox 100 O2 Delivery Room Air Progress Progress Note : Time: 20:49 Progress Note Patient seen and evaluated by my. Evaluation today includes physical exam, CBC, Chem-12, coag panel. Patient also had single view plain x-ray of the abdomen as well as CT abdomen and pelvis with IV contrast. Pertinent physical exam findings well-developed well-nourished male in moderate distress due to abdominal pain, nausea. He is actively dry heaving/vomiting in the bed during my exam. He is noted to vomit "coffee-ground emesis". His heart is intermittently irregular. Lungs are clear. Abdomen is mildly diffusely tender with very hyperactive bowel sounds. He is a little distended. No lower extremity edema. No focal neurologic deficits. Patient is noted to be wearing a LifeVest. Differential diagnosis based on history and physical exam small bowel obstruction, outlet obstruction due to tumor, diverticulitis, dehydration, acute kidney injury Labs, imaging independently reviewed and interpreted by me. The patient has a CBC notable for an increased white count at 18.3 with 91% segmented neutrophils. His hemoglobin is elevated at 19.8 hematocrit of 57. Platelet count is 259. Chem-12 remarkable for an anion gap of 17, normal electrolytes. Increased BUN at 32 creatinine 1.09. Glucose is up at 181. His calcium is also slightly elevated at 10.6. Bilirubin up at 1.3 AST 50 normal ALT. Coags appropriately elevated due to anticoagulant use. PT 15.4 INR 1.2 PTT 40. KUB is reviewed by me copious amounts of stool, this is consistent with the radiologist interpretation. CT abdomen and pelvis with IV contrast shows extensive constipation. Case was discussed with Dr. Wakefield on for the hospitalist service for [facility]. She recommends NG tube placement, bowel prep, nausea medications. She asked that I speak with Dr. Chapin, general surgery on-call who is agreeable to the plan of care. He will see him in the morning. Findings and plan of care communicated to the patient and his cousin who is at the bedside. He is agreeable to admission. NG tube placed meant was successful with no complications. He had approximately 150 cc of blackish stomach fluid aspirated from his stomach. He is a little bit tachycardic at admission heart rate 110 blood pressure is normal. Orders per Dr. Wakefield Diagnostic Imaging Diagonstic Imaging: Xray Plain Films/CT/US/NM/MRI: abdomen Comments [facility] [place] NAME: ARJUN JOLLEY [facility] REC#: [id number] PT STATUS: REG ER : 1955 PHYSICIAN: JUAN SALINAS MD ADMIT DATE: 10/26/22/ER Signed Date of Exam:10/26/22 ABDOMEN/KUB 1VIEW EXAMINATION: The abdominal radiograph TECHNIQUE: Supine abdominal radiograph HISTORY: severe abdominal pain, vomiting, "constipation 11d" COMPARISON: None available. FINDINGS: Large amount of stool burden throughout the colon. No apparent bowel obstruction. No free air. Included lung bases are clear. IMPRESSION: Large amount of stool burden concerning for constipation. No small bowel obstruction. Dictated by: Dictated on workstation # [id number] Dict: 10/26/221925 Trans: 10/26/221926 [facility] [id number] Interpreted by: PETER BERRY DO Electronically signed by: PETER BERRY DO 10/26/221926 Diagonstic Imaging: CT Comments NAME: ARJUN JOLLEY Nikita [facility] REC#: [id number] PT STATUS: REG ER : 1955 PHYSICIAN: JUAN SALINAS MD ADMIT DATE: 10/26/22/ER Signed Date of Exam:10/26/22 CT ABDOMEN/PELVIS W PROCEDURE: CT abdomen and pelvis with contrast. TECHNIQUE: Multiple contiguous axial images were obtained through the abdomen and pelvis after administration of intravenous contrast. Auto Exposure Controls were utilized during the CT exam to meet ALARA standards for radiation dose reduction. All CT scans use one or more of the following dose optimizing techniques: automated exposure control, MA and/or KvP adjustment based on patient size and exam type or iterative reconstruction. INDICATION: Abdominal pain. COMPARISON: Abdominal radiograph 10/26/2022. FINDINGS: Extensive stool burden throughout the colon. The small bowel are normal in caliber. The liver, spleen, and adrenal glands are normal. The pancreas is normal. The gallbladder is normal. The kidneys are normal. The aorta is normal. No abdominal pelvic lymphadenopathy. No free air, loculated fluid collections, or ascites. The osseous structures demonstrates no lytic or sclerotic bone lesions. IMPRESSION: Severe constipation with marked stool burden. Dictated by: Dictated on workstation # [id number] Dict: 10/26/222012 Trans: 10/26/222015 [facility] [id number] Interpreted by: PETER BERRY DO Electronically signed by: PETER BERRY DO 10/26/222015 Departure Communication (Admissions) Time/Spoke to Admitting Phy: 20:[address] Wakefield ([facility] hospitalist) Time/Spoke to Consulting Phy: 20:[address] Chapin (Surgery director of restaurant operations) Impression Primary Impression: Intractable constipation Additional Impression: Congestive heart failure Qualified Codes: I50.9 - Heart failure, unspecified Disposition: ADMITTED INPATIENT Condition: Stable Admissions Decision to Admit Reason: Admit from ER (General) Decision to Admit/Date: Oct 26, 2022 Time/Decision to Admit Time: 21:01 Departure-Patient Inst. Referrals: [facility] (PCP/Family) Primary Care Physician JUAN SALINAS MD Oct 26, 2022 18:13
[2022-10-26] MEDS ORDERED: NS IV 500 ML 500 ML IV STA (18:26)
[2022-10-26] MEDS ORDERED: PROMETHAZINE INJ 25 MG/ML VIAL IVP ONE (18:30)
[2022-10-26] MEDS ORDERED: PANTOPRAZOLE INJECTION 40 MG VIAL IV ONE (18:30)
[2022-10-26 18:32] LABS: BASOPHILS % (AUTO) 0 % (0-10); EOSINOPHILS % (AUTO) 0 % (0-10); HEMATOCRIT 57 % (40-54); HEMOGLOBIN 19.8 g/dL (13.3-17.7); LYMPHOCYTES # (AUTO) 0.9 10^3/uL (1.0-4.0); LYMPHOCYTES % (AUTO) 5 % (12-44); MEAN CORPUSCULAR HEMOGLOBIN 32 pg (25-34); MEAN CORPUSCULAR HGB CONC 35 g/dL (32-36); MEAN CORPUSCULAR VOLUME 93 fL (80-99); MEAN PLATELET VOLUME 11.1 fL (9.0-12.2); MONOCYTES # (AUTO) 0.7 10^3/uL (0.0-1.0); MONOCYTES % (AUTO) 4 % (0-12); NEUTROPHILS # (AUTO) 16.5 10^3/uL (1.8-7.8); NEUTROPHILS % (AUTO) 91 % (42-75); PLATELET COUNT 259 10^3/uL (130-400); WHITE BLOOD COUNT 18.3 10^3/uL (4.3-11.0)
[2022-10-26 18:34] LABS: ALBUMIN 4.5 GM/DL (3.2-4.5)
[2022-10-26 18:35] LABS: POTASSIUM 4.4 MMOL/L (3.6-5.0)
[2022-10-26 18:36] LABS: CALCIUM 10.6 MG/DL (8.5-10.1)
[2022-10-26 18:37] LABS: INR 1.2 (0.8-1.4); PROTHROMBIN TIME PATIENT 15.4 SEC (12.2-14.7); TOTAL PROTEIN 8.1 GM/DL (6.4-8.2)
[2022-10-26 18:39] LABS: BILIRUBIN,TOTAL 1.3 MG/DL (0.1-1.0)
[2022-10-26 18:40] LABS: CREATININE SERUM 1.09 MG/DL (0.60-1.30)
[2022-10-26 19:00] LABS: BAND NEUTROPHILS 8 %; LYMPHOCYTES % (MANUAL) 5 %; MONOCYTES % (MANUAL) 4 %; NEUTROPHILS % (MANUAL) 83 %
[2022-10-26 19:01] LABS: PLATELET ESTIMATE ADEQUATE; RBC MORPH NORMAL
--- NOTE | 2022-10-26 19:29 | Diagnostic Imaging Report ---
EXAMINATION: The abdominal radiograph TECHNIQUE: Supine abdominal radiograph HISTORY: severe abdominal pain, vomiting, "constipation 11d" COMPARISON: None available. FINDINGS: Large amount of stool burden throughout the colon. No apparent bowel obstruction. No free air. Included lung bases are clear. IMPRESSION: Large amount of stool burden concerning for constipation. No small bowel obstruction. Dictated by: Dictated on workstation # [id number]
[2022-10-26] MEDS ORDERED: HOLD METFORMIN - RECEIVED CONTRAST 20 ML VIAL IV SCH (20:00)
[2022-10-26] MEDS ORDERED: IOHEXOL 350 MG/ML 100 ML (OMNIPAQUE 350) VIAL IV ONE (20:00)
[2022-10-26] MEDS ORDERED: NS 100 ML (IVPB) BAG IV ONE (20:00)
--- NOTE | 2022-10-26 20:18 | Diagnostic Imaging Report ---
PROCEDURE: CT abdomen and pelvis with contrast. TECHNIQUE: Multiple contiguous axial images were obtained through the abdomen and pelvis after administration of intravenous contrast. Auto Exposure Controls were utilized during the CT exam to meet ALARA standards for radiation dose reduction. All CT scans use one or more of the following dose optimizing techniques: automated exposure control, MA and/or KvP adjustment based on patient size and exam type or iterative reconstruction. INDICATION: Abdominal pain. COMPARISON: Abdominal radiograph 10/26/2022. FINDINGS: Extensive stool burden throughout the colon. The small bowel are normal in caliber. The liver, spleen, and adrenal glands are normal. The pancreas is normal. The gallbladder is normal. The kidneys are normal. The aorta is normal. No abdominal pelvic lymphadenopathy. No free air, loculated fluid collections, or ascites. The osseous structures demonstrates no lytic or sclerotic bone lesions. IMPRESSION: Severe constipation with marked stool burden. Dictated by: Dictated on workstation # [id number]
[2022-10-26] MEDS ORDERED: ACETAMINOPHEN 325 MG TABLET PO PRN (22:15)
[2022-10-26] MEDS ORDERED: fentaNYL INJECTION 100 MCG/2 ML VIAL IVP PRN (22:15)
[2022-10-26] MEDS ORDERED: diphenhydrAMINE 25 MG TABLET PO PRN (22:15)
[2022-10-26] MEDS ORDERED: diphenhydrAMINE INJ 50 MG/ML VIAL IVP PRN (22:15)
[2022-10-26] MEDS ORDERED: ONDANSETRON 4 MG ORAL DISSOLVE TABLET PO PRN (22:15)
[2022-10-26] MEDS ORDERED: PEG 3350/ELECTROLYTE POWDER 4000 ML BTL NG ONE (22:15)
[2022-10-26] MEDS ORDERED: ANTACID SUSPENSION 30 ML UDC PO PRN (22:15)
[2022-10-26] MEDS ORDERED: ONDANSETRON INJECTION 4 MG/2 ML (SDV) IV PRN (22:15)
[2022-10-26] MEDS ORDERED: CALCIUM CARBONATE 500 MG CHEW TABLET PO PRN (22:15)
[2022-10-26] MEDS ORDERED: MILK OF MAGNESIA 400 MG/5 ML 30 ML UDC PO PRN (22:15)
[2022-10-26] MEDS ORDERED: LACTULOSE SYRUP 10GM/15ML 30ML UDC PO PRN (22:15)
[2022-10-26] MEDS ORDERED: MELATONIN 3 MG TABLET PO PRN (22:15)
[2022-10-26] MEDS ORDERED: BISACODYL 10 MG SUPPOSITORY PR PRN (22:15)
[2022-10-26 22:58] VITALS: BP 141/101
[2022-10-26] MEDS ORDERED: RT-Ipratropium/Albuterol NEB 3 ML VIAL INH PRN (23:15)
[2022-10-27] MEDS: NS IV 1000 ML 1,000 ML IV SCH ×2 (00:29→18:16)
[2022-10-27 00:32] VITALS: BP 152/83
[2022-10-27 04:59] VITALS: BP 117/84
[2022-10-27 06:05] LABS: BASOPHILS % (AUTO) 0 % (0-10); EOSINOPHILS % (AUTO) 0 % (0-10); HEMATOCRIT 49 % (40-54); HEMOGLOBIN 17.2 g/dL (13.3-17.7); LYMPHOCYTES # (AUTO) 0.8 10^3/uL (1.0-4.0); LYMPHOCYTES % (AUTO) 5 % (12-44); MEAN CORPUSCULAR HEMOGLOBIN 32 pg (25-34); MEAN CORPUSCULAR HGB CONC 35 g/dL (32-36); MEAN CORPUSCULAR VOLUME 92 fL (80-99); MEAN PLATELET VOLUME 11.3 fL (9.0-12.2); MONOCYTES # (AUTO) 0.9 10^3/uL (0.0-1.0); MONOCYTES % (AUTO) 5 % (0-12); NEUTROPHILS # (AUTO) 14.8 10^3/uL (1.8-7.8); NEUTROPHILS % (AUTO) 89 % (42-75); PLATELET COUNT 215 10^3/uL (130-400); WHITE BLOOD COUNT 16.7 10^3/uL (4.3-11.0)
[2022-10-27 06:17] LABS: ALBUMIN 3.6 GM/DL (3.2-4.5)
[2022-10-27 06:18] LABS: POTASSIUM 4.2 MMOL/L (3.6-5.0)
[2022-10-27 06:19] LABS: CALCIUM 9.1 MG/DL (8.5-10.1)
[2022-10-27 06:20] LABS: TOTAL PROTEIN 6.4 GM/DL (6.4-8.2)
[2022-10-27 06:22] LABS: BILIRUBIN,TOTAL 1.1 MG/DL (0.1-1.0)
[2022-10-27 06:24] LABS: CREATININE SERUM 0.76 MG/DL (0.60-1.30)
[2022-10-27 07:19] VITALS: BP 150/76
--- NOTE | 2022-10-27 08:39 | Consultation - Surgery ---
VANGIE OORSCO 10/27/22 0839: History of Present Illness History of Present Illness Patient Consulted On(martín/time) 10/27/22 08:30 Time Seen by Provider: 08:30 History of Present Illness Pt presents to the hospital for constipation. He was brought by his cousin to the ER around 5pm last night. He has been constipated for 11 days. He states that he had a BM this morning between midnight and 1am. He was told by the nurse that he had a 40 pound BM. He denies melena or hematochezia during this BM. He denies any current abdominal pain. He had abdominal pain before the BM but the pain started to go away after the BM. The abdominal pain was described as a stomach full of sand, pain in the RUQ and LUQ, with no radiation. He does not have the urge to pass a BM currently. He states that he feels great right now and finally cleared out. He feels like things are starting to "move around" and doesn't feel clogged up. His mother had Colon Cancer and at age 59 from it. He has never had a colonoscopy. He denies having xrays or CT scans of his abd ominal area in the past. Before this episode he has 1 BM a day, he describes them as hard. He denies diarrhea or melena or hematochezia. He denies having rectal masses. He is currently on IV fluids. He has not eaten anything in the hospital. His last meal was two days ago - [place] and eggs at the diner. He takes organic oregano and krill oil for his home supplements. He takes the or egano for respiratory problems and the krill oil for his heart. He has not taken any NSAIDs or tylenol in "years". He has not scheduled a cardiac appt yet but he has a plan to make an appointment. He states that he puked yesterday morning around 8:30am. He reported seeing dry blood in the vomit, reports most of the vomit was blood, the amount was anywhere between 1.5 to 2 quarts of blood in the vomit. The vomit was dark. The preceeding event to this vomiting episode was the pt was drinking a mixed sample of miralax, prune juice, cod liver oil, x-lax and water. He was unable to keep it down for longer than 30 minutes before vomiting. His last episode of constipation was last December when he was last in [facility]. He was also constipated for 11 days. Drinking a lot of prune juice and hard pushing is what eventually caused him to break up the constipation. He denies any melena or hematochezia at that episode. He denies having any vomiting during that episode. His last time he was constipated before this was 1977 on a long boating trip. He states that he does not drink enough water and that causes him to be dehydrated. He eats a lot of fruits and vegetables. He doesn't eat a lot of fiber. He drinks rum and vodka 3-4 nights a week, 2-3 drinks at each setting. He has been doing this all of his life. Allergies and Home Medications Allergies Coded Allergies: No Known Allergies (Verified Allergy, Unknown, 10/27/22) Patient Home Medication List Aspirin (Aspirin) 81 Mg Tab.chew, 81 MG PO DAILY, (Reported) Entered as Reported by: CRISTINA CANTU on 10/27/221407 Last Action: Reviewed Carvedilol (Carvedilol) 3.125 Mg Tablet, 3.125 MG PO BID WITH MEALS, (Reported) Entered as Reported by: CRISTINA CANTU on 10/27/221407 Last Action: Reviewed Digoxin (Digoxin) 125 Mcg (0.125 Mg) Tablet, 125 MCG PO DAILY, (Reported) Entered as Reported by: CRISTINA CANTU on 10/27/221407 Last Action: Reviewed Diltiazem HCl (Diltiazem 24Hr ER) 120 Mg Cap.er.24h, 120 MG PO 1800, (Reported) Entered as Reported by: CRISTINA CANTU on 10/27/221407 Last Action: Reviewed Empagliflozin (Jardiance) 10 Mg Tablet, 10 MG PO 1800, (Reported) Entered as Reported by: CRISTINA CANTU on 10/27/221407 Last Action: Reviewed Furosemide (Furosemide) 40 Mg Tablet, 40 MG PO DAILY, (Reported) Entered as Reported by: CRISTINA CANTU on 10/27/221407 Last Action: Reviewed Krill/Om-3/Dha/Epa/Phospho/Ast (Krill Oil 500 mg Softgel) 500MG-86MG Capsule, 2 EACH PO BID, (Reported) Entered as Reported by: CRISTINA CANTU on 10/16/22914 Last Action: Reviewed Lisinopril (Lisinopril) 5 Mg Tablet, 5 MG PO DAILY, (Reported) Entered as Reported by: CRISTINA CANTU on 10/27/221407 Last Action: Reviewed Rivaroxaban (Xarelto Tablet) 20 Mg Tablet, 20 MG PO 1800, (Reported) Entered as Reported by: CRISTINA CANTU on 10/16/22914 Last Action: Reviewed Spironolactone (Spironolactone) 25 Mg Tablet, 25 MG PO DAILY, (Reported) Entered as Reported by: CRISTINA CANTU on 10/27/221407 Last Action: Reviewed [Oregaresp] CAP, 2 EA PO BID, (Reported) Entered as Reported by: CRISTINA CANTU on 10/16/22916 Last Action: Reviewed Discontinued Medications Aspirin (Children's Aspirin) 81 Mg Tab.chew, 81 MG PO DAILY Discontinued Reason: Duplicate Order Prescribed by: EJ ALDRIDGE on 10/19/221152 Last Action: Discontinued Carvedilol (Carvedilol) 3.125 Mg Tablet, 3.125 MG PO BID Discontinued Reason: Duplicate Order Prescribed by: EJ ALDRIDGE on 10/19/221152 Last Action: Discontinued Digoxin (Digox) 125 Mcg (0.125 Mg) Tablet, 0.125 MG PO DAILY Discontinued Reason: Duplicate Order Prescribed by: EJ ALDRIDGE on 10/19/221152 Last Action: Discontinued Diltiazem HCl (Diltiazem 24Hr ER) 120 Mg Cap.er.24h, 120 MG PO DAILY Discontinued Reason: Duplicate Order Prescribed by: EJ ALDRIDGE on 10/19/221152 Last Action: Discontinued Empagliflozin (Jardiance) 10 Mg Tablet, 10 MG PO DAILY Discontinued Reason: Duplicate Order Prescribed by: EJ ALDRIDGE on 10/19/221152 Last Action: Discontinued Furosemide (Furosemide) 40 Mg Tablet, 40 MG PO DAILY Discontinued Reason: Duplicate Order Prescribed by: EJ ALDRIDGE on 10/19/221152 Last Action: Discontinued Lisinopril (Lisinopril) 5 Mg Tablet, 5 MG PO DAILY Discontinued Reason: Duplicate Order Prescribed by: EJ ALDRIDGE on 10/19/221152 Last Action: Discontinued Spironolactone (Spironolactone) 25 Mg Tablet, 25 MG PO DAILY Discontinued Reason: Duplicate Order Prescribed by: EJ ALDRIDGE on 10/19/22 1153 Last Action: Discontinued Past Xoncfqc-Hbcrqe-Kpevgp Hx Patient Social History Number of Drinks Today: 0 Drug of Choice: Marijuana - social smoker - 3-4x per week. Smoking Status: Never a Smoker (cigarettes) Recent Hopitalizations: Yes (December of 2021 - for constipation and heart fibrillations) Alcohol Use?: Yes (3-4 nights a week he has 3-4 rum and vodka drinks. He has been doing this his entire life.) Substance type: Marijuana Immunizations Up To Date Tetanus Booster (TDap): Unknown Seasonal Allergies Seasonal Allergies: No Surgeries History of Surgeries: Yes Surgeries: Coronary Stent (December 2021) Respiratory History of Respiratory Disorde: Yes Respiratory Disorders: COPD (December 2021) Cardiovascular History of Cardiac Disorders: Yes Cardiac Disorders: Aneurysm, Atrial Fibrillation, Irregular Heartbeat Neurological History of Neurological Disord: No Reproductive System Hx Reproductive Disorders: No Sexually Transmitted Disease: No HIV/AIDS: No Genitourinary History of Genitourinary Disor: No Gastrointestinal History of Gastrointestinal Di: Yes (Previous episodes of constipation) Musculoskeletal History of Musculoskeletal Dis: No Endocrine History of Endocrine Disorders: No HEENT History of HEENT Disorders: No Loss of Vision: Bilateral (eye sight has been decreasing the past couple of months) Hearing Impairment: Denies Cancer History of Cancer: No Psychosocial History of Psychiatric Problem: No Integumentary History of Skin or Integumenta: No Blood Transfusions History of Blood Disorders: No Adverse Reaction to a Blood Tr: No Family Medical History Significant Family History: No Pertinent Family Hx Family Medial History: Cardiovascular disease G8 BROTHER, Onset:50's - 60 (heart transplant) G8 SISTER, Onset:40's - 50 (A. fib) FH: cirrhosis 19 FATHER, Onset:50's - 60 (due to drinking, at age 59) FH: colon cancer 19 MOTHER, Onset:50's - 60 ( at age 59) Review of Systems-General Constitutional: No chills, No dizziness, No fever, No malaise, No weakness EENTM: vision loss, dental problems, mouth pain (due to NG tube), nose pain (due to NG tube), throat pain (due to NG tube); No ear discharge, No hearing loss, No ear pain, No blurred vision, No double vision, No eye pain, No hoarseness, No mouth swelling Respiratory: No cough, No dyspnea on exertion, No phlegm, No short of breath, No stridor, No wheezing Cardiovascular: No chest pain, No palpitations Gastrointestinal: No abdominal pain; constipation; No diarrhea, No jaundice, No loss of appetite, No melena, No nausea, No vomiting Genitourinary: No discharge, No dysuria, No frequency, No hematuria, No hesitancy, No incontinence, No nocturia, No pain Musculoskeletal: No back pain, No joint pain, No muscle pain, No muscle stiffness, No muscle cramps Psychiatric/Neurological: Denies Anxiety, Denies Depressed, Denies Emotional Problems, Denies Headache, Denies Numbness, Denies Tingling, Denies Tremors, Denies Weakness Physical Exam-General Problems Physical Exam Vital Signs Vital Signs - First Documented 10/26/22 10/26/22 10/27/22 18:07 22:58 07:21 Temp 36.0 Pulse 52 Resp 23 B/P (MAP) 146/101 (116) Pulse Ox 100 O2 Delivery Room Air O2 Flow Rate 0.00 FiO2 21 Capillary Refill : General Appearance: no apparent distress, thin Eyes: Bilateral Eye PERRL, Bilateral Eye EOMI HEENT: PERRL/EOMI; No scleral icterus (R), No scleral icterus (L), No photophobia Neck: tender midline Respiratory: chest non-tender, lungs clear, normal breath sounds, no respiratory distress, no accessory muscle use Cardiovascular: regular rate, rhythm (80 BPM), no murmur Peripheral Pulses: 2+ Dorsalis Pedis (R), 2+ Left Dors-Pedis (L), 2+ Radial Pulses (R), 2+ Radial Pulses (L) Gastrointestinal: soft, abnormal bowel sounds (hyperactive in RUQ and LUQ); No distended, No guarding, No rebound; tenderness (all 4 quadrants); No mass, No hepatomegaly, No spleenomegaly Back: no CVA tenderness Neurologic/Psychiatric: no motor/sensory deficits, alert, normal mood/affect, oriented x 3; No facial droop Skin: normal color, warm/dry Data Review Labs Laboratory Tests 10/26/22 18:10: White Blood Count 18.3H, Red Blood Count 6.19H, Hemoglobin 19.8H, Hematocrit 57H , Mean Corpuscular Volume 93, Mean Corpuscular Hemoglobin 32, Mean Corpuscular Hemoglobin Concent 35, Red Cell Distribution Width 13.7, Platelet Count 259, Mean Platelet Volume 11.1, Immature Granulocyte % (Auto) 1, Neutrophils (%) (Aut o) 91H, Lymphocytes (%) (Auto) 5L, Monocytes (%) (Auto) 4, Eosinophils (%) (Auto) 0, Basophils (%) (Auto) 0, Neutrophils # (Auto) 16.5H, Lymphocytes # (Auto) 0.9L, Monocytes # (Auto) 0.7, Eosinophils # (Auto) 0.0, Basophils # (Auto) 0.0, Immature Granulocyte # (Auto) 0.1, Neutrophils % (Manual) 83, Lymphocytes % (Manual) 5, Monocytes % (Manual) 4, Band Neutrophils 8, Platelet Estimate ADEQUATE, Blood Morphology Comment NORMAL, Prothrombin Time 15.4H, INR Comment 1.2, Activated Partial Thromboplast Time 40H, Sodium Level 137, Potassium Level 4.4, Chloride Level 99, Carbon Dioxide Level 21, Anion Gap 17H, Blood Urea Nitrogen 32H, Creatinine 1.09, Estimat Glomerular Filtration Rate 74, BUN/Creatinine Ratio 29, Glucose Level 181H, Calcium Level 10.6H, Corrected Calcium 10.2H, Total Bilirubin 1.3H, Aspartate Amino Transf (AST/SGOT) 50H, Alanine Aminotransferase (ALT/SGPT) 55, Alkaline Phosphatase 70, Total Protein 8.1, Albumin 4.5 10/27/22 05:30: White Blood Count 16.7H, Red Blood Count 5.36, Hemoglobin 17.2, Hematocrit 49, Mean Corpuscular Volume 92, Mean Corpuscular Hemoglobin 32, Mean Corpuscular Hemoglobin Concent 35, Red Cell Distribution Width 13.6, Platelet Count 215, Mean Platelet Volume 11.3, Immature Granulocyte % (Auto) 1, Neutrophils (%) (Auto) 89H, Lymphocytes (%) (Auto) 5L, Monocytes (%) (Auto) 5, Eosinophils (%) (Auto) 0, Basophils (%) (Auto) 0, Neutrophils # (Auto) 14.8H, Lymphocytes # (Auto) 0.8L, Monocytes # (Auto) 0.9, Eosinophils # (Auto) 0.0, Basophils # (Auto) 0.0, Immature Granulocyte # (Auto) 0.1, Sodium Level 137, Potassium Level 4.2, Chloride Level 101, Carbon Dioxide Level 25, Anion Gap 11, Blood Urea Nitrogen 27H, Creatinine 0.76, Estimat Glomerular Filtration Rate 99, BUN/Creatinine Ratio 36, Glucose Level 128H, Calcium Level 9.1, Corrected Calcium 9.4, Total Bilirubin 1.1H, Aspartate Amino Transf (AST/SGOT) 34, Alanine Aminotransferase (ALT/SGPT) 38, Alkaline Phosphatase 55, Total Protein 6.4, Albumin 3.6 Radiology Date of Exam:10/26/22 CT ABDOMEN/PELVIS W PROCEDURE: CT abdomen and pelvis with contrast. TECHNIQUE: Multiple contiguous axial images were obtained through the abdomen and pelvis after administration of intravenous contrast. Auto Exposure Controls were utilized during the CT exam to meet ALARA standards for radiation dose reduction. All CT scans use one or more of the following dose optimizing techniques: automated exposure control, MA and/or KvP adjustment based on patient size and exam type or iterative reconstruction. INDICATION: Abdominal pain. COMPARISON: Abdominal radiograph 10/26/2022. FINDINGS: Extensive stool burden throughout the colon. The small bowel are normal in caliber. The liver, spleen, and adrenal glands are normal. The pancreas is normal. The gallbladder is normal. The kidneys are normal. The aorta is normal. No abdominal pelvic lymphadenopathy. No free air, loculated fluid collections, or ascites. The osseous structures demonstrates no lytic or sclerotic bone lesions. IMPRESSION: Severe constipation with marked stool burden. Date of Exam:10/26/22 ABDOMEN/KUB 1VIEW EXAMINATION: The abdominal radiograph TECHNIQUE: Supine abdominal radiograph HISTORY: severe abdominal pain, vomiting, "constipation 11d" COMPARISON: None available. FINDINGS: Large amount of stool burden throughout the colon. No apparent bowel obstruction. No free air. Included lung bases are clear. IMPRESSION: Large amount of stool burden concerning for constipation. No small bowel obstruction. Assessment/Plan Assessment/Plan Assessment/Plan Constipation Hx of A. fib. Chronic Marijuana smoker Chronic Alcohol drinker Pt is to continue IV fluids and start introducing soft foods. I will discuss with him having a colonoscopy due to his episode of constipation, FH of colon ca and never having one in the past. Pt is currently not in A. fib. Pt is to continue current tx. Clinical Quality Measures DVT/VTE Risk/Contraindication: Contraindications-Pharm: Other *list below* Other: hematemesis JESUS RODRIGUEZ DO 10/27/22 1453: History of Present Illness History of Present Illness Time Seen by Provider: 10:31 History of Present Illness Surgery asked to consult regarding constipation. Pt seen in laying down in his bed, he had just had large BM. He denied abdominal pain and thinks his belly is a little smaller. He has an NGT in place. Allergies and Home Medications Allergies Coded Allergies: No Known Allergies (Verified Allergy, Unknown, 10/27/22) Patient Home Medication List Home Medication List Reviewed: Yes Aspirin (Aspirin) 81 Mg Tab.chew, 81 MG PO DAILY, (Reported) Entered as Reported by: CRISTINA CANTU on 10/27/221407 Last Action: Reviewed Carvedilol (Carvedilol) 3.125 Mg Tablet, 3.125 MG PO BID WITH MEALS, (Reported) Entered as Reported by: CRISTINA CANTU on 10/27/221407 Last Action: Reviewed Digoxin (Digoxin) 125 Mcg (0.125 Mg) Tablet, 125 MCG PO DAILY, (Reported) Entered as Reported by: CRISTINA CANTU on 10/27/221407 Last Action: Reviewed Diltiazem HCl (Diltiazem 24Hr ER) 120 Mg Cap.er.24h, 120 MG PO 1800, (Reported) Entered as Reported by: CRISTINA CANTU on 10/27/221407 Last Action: Reviewed Empagliflozin (Jardiance) 10 Mg Tablet, 10 MG PO 1800, (Reported) Entered as Reported by: CRISTINA CANTU on 10/27/221407 Last Action: Reviewed Furosemide (Furosemide) 40 Mg Tablet, 40 MG PO DAILY, (Reported) Entered as Reported by: CRISTINA CANTU on 10/27/221407 Last Action: Reviewed Krill/Om-3/Dha/Epa/Phospho/Ast (Krill Oil 500 mg Softgel) 500MG-86MG Capsule, 2 EACH PO BID, (Reported) Entered as Reported by: CRISTINA CANTU on 10/16/22 0915 Last Action: Reviewed Lisinopril (Lisinopril) 5 Mg Tablet, 5 MG PO DAILY, (Reported) Entered as Reported by: CRISTINA CANTU on 10/27/221407 Last Action: Reviewed Rivaroxaban (Xarelto Tablet) 20 Mg Tablet, 20 MG PO 1800, (Reported) Entered as Reported by: CRISTINA CANTU on 10/16/22914 Last Action: Reviewed Spironolactone (Spironolactone) 25 Mg Tablet, 25 MG PO DAILY, (Reported) Entered as Reported by: CRISTINA CANTU on 10/27/221407 Last Action: Reviewed [Oregaresp] CAP, 2 EA PO BID, (Reported) Entered as Reported by: CRISTINA CANTU on 10/16/22916 Last Action: Reviewed Discontinued Medications Aspirin (Children's Aspirin) 81 Mg Tab.chew, 81 MG PO DAILY Discontinued Reason: Duplicate Order Prescribed by: EJ ALDRIDGE on 10/19/221152 Last Action: Discontinued Carvedilol (Carvedilol) 3.125 Mg Tablet, 3.125 MG PO BID Discontinued Reason: Duplicate Order Prescribed by: EJ ALDRIDGE on 10/19/221152 Last Action: Discontinued Digoxin (Digox) 125 Mcg (0.125 Mg) Tablet, 0.125 MG PO DAILY Discontinued Reason: Duplicate Order Prescribed by: EJ ALDRIDGE on 10/19/221152 Last Action: Discontinued Diltiazem HCl (Diltiazem 24Hr ER) 120 Mg Cap.er.24h, 120 MG PO DAILY Discontinued Reason: Duplicate Order Prescribed by: EJ ALDRIDGE on 10/19/221152 Last Action: Discontinued Empagliflozin (Jardiance) 10 Mg Tablet, 10 MG PO DAILY Discontinued Reason: Duplicate Order Prescribed by: EJ ALDRIDGE on 10/19/221152 Last Action: Discontinued Furosemide (Furosemide) 40 Mg Tablet, 40 MG PO DAILY Discontinued Reason: Duplicate Order Prescribed by: EJ ALDIRDGE on 10/19/221152 Last Action: Discontinued Lisinopril (Lisinopril) 5 Mg Tablet, 5 MG PO DAILY Discontinued Reason: Duplicate Order Prescribed by: EJ ALDRIDGE on 10/19/221152 Last Action: Discontinued Spironolactone (Spironolactone) 25 Mg Tablet, 25 MG PO DAILY Discontinued Reason: Duplicate Order Prescribed by: EJ ALDRIDGE on 10/19/221152 Last Action: Discontinued Past Kdwhtfq-Hulbju-Ohhffc Hx Patient Social History Smoking Status: Never a Smoker (cigarettes) Recent Hopitalizations: Yes (December of 2021 - for constipation and heart fibrillations) Alcohol Use?: Yes (3-4 nights a week he has 3-4 rum and vodka drinks. He has been doing this his entire life.) Seasonal Allergies Seasonal Allergies: No Surgeries History of Surgeries: Yes Surgeries: Coronary Stent (December 2021) Respiratory History of Respiratory Disorde: Yes Respiratory Disorders: COPD (December 2021) Cardiovascular History of Cardiac Disorders: Yes (Congestive Heart failure) Cardiac Disorders: Coronary Artery Disease, Hypertension, Irregular Heartbeat Neurological History of Neurological Disord: No Reproductive System Hx Reproductive Disorders: No Sexually Transmitted Disease: No HIV/AIDS: No Genitourinary History of Genitourinary Disor: No Gastrointestinal History of Gastrointestinal Di: Yes (Previous episodes of constipation) Musculoskeletal History of Musculoskeletal Dis: No Endocrine History of Endocrine Disorders: No HEENT History of HEENT Disorders: No Cancer History of Cancer: No Psychosocial History of Psychiatric Problem: No Integumentary History of Skin or Integumenta: No Blood Transfusions History of Blood Disorders: No Family Medical History Significant Family History: Heart Disease, Cancer Family Medial History: Cardiovascular disease G8 BROTHER, Onset:50's - 60 (heart transplant) G8 SISTER, Onset:40's - 50 (A. fib) FH: cirrhosis 19 FATHER, Onset:50's - 60 (due to drinking, at age 59) FH: colon cancer 19 MOTHER, Onset:50's - 60 ( at age 59) Review of Systems-General Constitutional: No chills, No dizziness, No fever; malaise, weakness EENTM: vision loss, dental problems, mouth pain (due to NG tube), nose pain (due to NG tube), throat pain (due to NG tube); No blurred vision, No double vision, No hoarseness, No mouth swelling Respiratory: No cough, No dyspnea on exertion, No phlegm; short of breath; No stridor, No wheezing Cardiovascular: No chest pain; Hx of Intervention, palpitations Gastrointestinal: No abdominal pain; constipation; No diarrhea, No jaundice, No melena, No nausea, No vomiting Genitourinary: No dysuria, No frequency, No hematuria Musculoskeletal: No back pain, No joint pain, No muscle pain, No muscle stiffness, No muscle cramps Skin: No change in color, No change in hair/nails Psychiatric/Neurological: Denies Anxiety, Denies Depressed, Denies Emotional Problems, Denies Headache, Denies Numbness, Denies Tingling, Denies Tremors, Denies Weakness Physical Exam-General Problems Physical Exam General Appearance: no apparent distress, thin Eyes: Bilateral Eye PERRL, Bilateral Eye EOMI HEENT: pharynx normal; No scleral icterus (R), No scleral icterus (L) Neck: supple, tender midline Respiratory: chest non-tender, lungs clear, normal breath sounds, no respiratory distress, no accessory muscle use Cardiovascular: regular rate, rhythm (80 BPM), no murmur Gastrointestinal: soft, abnormal bowel sounds (hyperactive in RUQ and LUQ); No distended, No guarding, No rebound; tenderness (all 4 quadrants); No mass, No hepatomegaly, No spleenomegaly Rectal: deferred Back: no CVA tenderness, no vertebral tenderness Extremities: no pedal edema, no calf tenderness Neurologic/Psychiatric: no motor/sensory deficits, alert, normal mood/affect, oriented x 3 Skin: normal color, warm/dry Lymphatic: no adenopathy (neck, axilla or groin) Assessment/Plan Assessment/Plan Assessment/Plan Constipation Hx of A. fib. Chronic Marijuana smoker Chronic Alcohol drinker I discussed this case with the ED physician and reviewed the CT images myself. I think there is the suggestion of narrowing in the mid-descending colon. Pt needs a colonoscopy as an outpt; he has never had one. Had an NGT placed last night so they could trickle in golytely to help clear some of the constipation. Should drink clears to help get some fluids into the colon. Pt is to continue IV fluids, pain meds and anti-emetics as needed. Pt also encouraged to ambulate and use IS. Pt is currently not in A. fib. Pt is to continue current tx. Pt also took off his life vest last night and I told him he has to wear it. Supervisory-Addendum Brief Verification & Attestation Participated in pt care: history, MDM, physical Personally performed: exam, history, MDM, supervision of care Care discussed with: Medical Student Procedures: n/a Verification and Attestation of Medical Student E/M Service A medical student performed and documented this service. I then reviewed and verified all information documented by the medical student and made modifications to such information, when appropriate. I personally performed a physical exam, medical decision making and then discussed any differences between the notes and made revisions as necessary to create one note. Jessu Rodriguez , 10/27/22 , 14:59 VANGIE OROSCO Oct 27, 2022 08:39 JESUS RODRIGUEZ DO Oct 27, 2022 14:53
[2022-10-27] MEDS: DOCUSATE SODIUM 100 MG CAPSULE PO SCH ×2 (09:24→20:45)
[2022-10-27] MEDS: SENNOSIDES 8.6 MG TABLET PO SCH ×2 (09:24→20:45)
[2022-10-27 11:11] VITALS: BP 157/97
--- NOTE | 2022-10-27 13:32 | History & Physical-Hospitalist ---
[facility] 1332: History of Present Illness HPI/Chief Complaint CC: abdominal pain HPI: 67 y/o male was brought to the ER by his cousin on 10/26/22 for abdominal pain. He was wearing a life vest for CHF, and has a history of COPD, afib, and constipation with the last incident occurring in december of 2021- after he received his coronary stent. He does have recent history of marijuana and alcohol use. Patient was at the hospital last week for uncontrolled afib that resolved and is currently on medications to manage it. He stated he had been constipated for the past [address]-scan showed no small bowel obstruction and no free air. While in the ED he had an episode of coffee ground emesis and felt nauseated. He was admitted with severe constipation. While on [facility] floor there was a few bowel movements at night that provided some relief of the abdominal crampy pain he felt but stated there was still more. He urinates with out any problems and sates he has no eaten since Sunday and still has no desire to eat. Has some cough, denies any chest pain, dyspnea and is currently on NG tube for nutrition. Date Seen 10/27/22 Time Seen by a Provider: 11:30 Attending Physician [place] PCP Admitting Physician: Shellie Wakefield DO Attending Physician: Shelile Wakefiedl DO Referring Physician Date of Admission Oct 26, 2022 at 21:51 Home Medications & Allergies Home Medications Reviewed patient Home Medication Reconciliation performed by pharmacy medication reconciliations oil and gas field technician and/or nursing. Patients Allergies have been reviewed. Allergies Allergies Coded Allergies No Known Allergies (Verified Allergy, Unknown, 10/27/22) Past Puogwqy-Zvbeob-Rdcveh Hx Patient Social History Tobacco Use?: No Smoking Status: Never a Smoker (cigarettes) Use of E-Cig and/or Vaping dev: No Substance use?: No Substance type: Marijuana Alcohol Use?: Yes (3-4 nights a week he has 3-4 rum and vodka drinks. He has been doing this his entire life.) Alcohol type: Hard Liquor, Wine Pt feels they are or have been: No Immunizations Up To Date Tetanus Booster (TDap): More Than 5 Years Hepatitis A: No Hepatitis B: No Seasonal Allergies Seasonal Allergies: No Current Status Advance Directives: No Communicates: Verbally Primary Language: Albanian Preferred Spoken Language: Albanian Is interpretation needed?: No Sensory deficits: Vision impairment Implanted or Applied Medical D: None Past Medical History Surgeries: Coronary Stent (December 2021) COPD (December 2021) Currently Using CPAP: No Currently Using BIPAP: No Aneurysm, Atrial Fibrillation, Irregular Heartbeat Sexually Transmitted Disease: No HIV/AIDS: No Loss of Vision: Bilateral (eye sight has been decreasing the past couple of months) Hearing Impairment: Denies Blood Disorders: No Adverse Reaction/Blood Tranf: No Family Medical History Cardiovascular disease G8 BROTHER, Onset:50's - 60 (heart transplant) G8 SISTER, Onset:40's - 50 (A. fib) FH: cirrhosis 19 FATHER, Onset:50's - 60 (due to drinking, at age 59) FH: colon cancer 19 MOTHER, Onset:50's - 60 ( at age 59) No Pertinent Family Hx Review of Systems Constitutional: no symptoms reported, see HPI; No chills, No diaphoresis, No fever, No malaise Respiratory: cough; No hemoptysis, No phlegm, No short of breath Gastrointestinal: see HPI, abdominal pain, constipation, dysphagia, loss of appetite, melena, nausea, vomiting Physical Exam Physical Exam Vital Signs Vital Signs - First Documented 10/26/22 10/26/22 10/27/22 18:07 22:58 07:21 Temp 36.0 Pulse 52 Resp 23 B/P (MAP) 146/101 (116) Pulse Ox 100 O2 Delivery Room Air O2 Flow Rate 0.00 FiO2 21 Capillary Refill : Height, Weight, BMI Height: '" Weight: lbs. oz. kg; 22.33 BMI Method: General Appearance: No Apparent Distress, WD/WN, Chronically ill Respiratory: Chest Non Tender, Lungs Clear, Normal Breath Sounds, No Accessory Muscle Use, No Respiratory Distress Cardiovascular: Regular Rate, Rhythm, Irregularly Irregular Gastrointestinal: No Organomegaly, No Pulsatile Mass, Abnormal Bowel Sounds, Distended, Tenderness Neurologic/Psychiatric: Alert, Oriented x3, No Motor/Sensory Deficits Results Results/Procedures Labs Laboratory Tests 10/26/22 18:10 10/27/22 05:30 Patient resulted labs reviewed. Assessment/Plan Admission Diagnosis Severe constipation Admission Status: Inpatient Order (span 2 midnights) Reason for Inpatient Admission: Severe constipation Assessment and Plan Assessment: Severe constipation afib CHF low fiber diet COPD Plan: continue IV fluids NG nutrition laxatives Clinical Quality Measures DVT/VTE Risk/Contraindication: Contraindications-Pharm: Other *list below* Other: hematemesis SHELLIE WAKEFIELD DO 10/28/22 0606: History of Present Illness HPI/Chief Complaint Chief complaint: Severe constipation requiring NG tube placement for GoLytely and soapsuds enema HPI: This is a 67-year-old male clinic patient of [facility] who was just discharged last week for atrial fibrillation and congestive heart failure placed on a LifeVest who has a history of constipation who presented to the ER with such severe constipation and vomiting and hematemesis he was in need of NG tube placement with GoLytely placement and soapsuds enemas. Anticoagulation was held and that he had been emesis but that has subsided. Source: patient, old records Exam Limitations: no limitations Past Egywyjj-Bmnilf-Okypwd Hx Patient Social History Marrital Status: single Employed/Student: retired Smoking Status: Former Smoker Past Medical History Atrial Fibrillation, Chronic Edema/Swelling Family Medical History Cardiovascular disease G8 BROTHER, Onset:50's - 60 (heart transplant) G8 SISTER, Onset:40's - 50 (A. fib) FH: cirrhosis 19 FATHER, Onset:50's - 60 (due to drinking, at age 59) FH: colon cancer 19 MOTHER, Onset:50's - 60 ( at age 59) Review of Systems Constitutional: see HPI Gastrointestinal: constipation Physical Exam Physical Exam General Appearance: No Apparent Distress, Chronically ill, Thin Respiratory: Lungs Clear, Normal Breath Sounds Cardiovascular: Regular Rate, Rhythm Gastrointestinal: Abnormal Bowel Sounds, Distended Assessment/Plan Admission Diagnosis Severe constipation Nausea and vomiting and hematemesis Atrial fibrillation Cardiomyopathy Plan: Maintain LifeVest NG tube with GoLytely supportive care Admission Status: Observation Supervisory-Addendum Brief Verification & Attestation Participated in pt care: history, MDM, physical Personally performed: exam, history, MDM, supervision of care Care discussed with: Medical Student Procedures: n/a Results interpretation: Verified all documentation Verification and Attestation of Medical Student E/M Service A medical student performed and documented this service in my presence. I reviewed and verified all information documented by the medical student and made modifications to such information, when appropriate. I personally performed the physical exam and medical decision making. Shellie Wakefield, Oct 28, 2022,06:04 FRANCES Oct 27, 2022 13:32 SHELLIE WAKEFIELD DO Oct 28, 2022 06:06
[2022-10-27] MEDS ORDERED: LISI5TAB20 PO (14:08)
[2022-10-27] MEDS ORDERED: DIGO125T3 PO (14:08)
[2022-10-27] MEDS ORDERED: SPIR25TA5 PO (14:08)
[2022-10-27] MEDS ORDERED: ASPI-999 PO (14:08)
[2022-10-27] MEDS ORDERED: EMPA10TA PO (14:08)
[2022-10-27] MEDS ORDERED: FURO40TA4 PO (14:08)
[2022-10-27] MEDS ORDERED: DILT-27 PO (14:08)
[2022-10-27] MEDS ORDERED: CARV3.122 PO (14:08)
[2022-10-27 15:59] VITALS: BP 149/73
[2022-10-27 19:42] VITALS: BP 134/81
[2022-10-27] MEDS ORDERED: dilTIAZem DRIP PRE-MIX 125 ML IV SCH (20:15)
[2022-10-27] MEDS ORDERED: NS IV 500 ML 500 ML IV PRN (20:15)
[2022-10-27] MEDS ORDERED: ENOXAPARIN 100 MG/1 ML SYRINGE SC SCH (20:15)
--- NOTE | 2022-10-27 21:21 | Tele-ICU Progress Note ---
Progress Note 67M with afib requiring recent admit for refractory RVR, DM, CHF with LifeVest in place, CAD with h/o PCI, COPD admitted 10/26 for severe constipation requiring inpatient management. Had NGT placed with GoLytely dripping and enemas with overall improvement. This evening transferred to ICU for RVR. He had not had any of his rate controlling medications on 10/26 due to vomiting and they were not restarted on admission. HR now 100-150, BP 130s - 150s. Noted to have coffee ground emesis in ED. - afib: with RVR. Hold diltiazem gtt for now. Start PRN metoprolol. Restart home coreg and digoxin now. Restart home diltiazem in the morning. Holding home lisinopril and spironolactone, can be restarted if BP tolerates. Restart home xa relto. Check electrolytes. Initial Hg 19.8 with repeat 17.6. No indication for transfusion. - UGIB: reported coffee ground emesis. Surgery consulted. - constipation: continue aggressive bowel regimen. - DM: hold home jardiance. Start sliding scale. - CHF: cautious with fluids. Patient assessed via real time audiovisual communication system. CCT 15 min Focused Exam Height, Weight, BMI Height: '" Weight: lbs. oz. kg; 22.33 BMI Method: PETRA TALBOT MD Oct 27, 2022 21:21
[2022-10-27] MEDS: meTOprolol INJECTION 5 MG/5 ML VIAL IV PRN ×2 (21:29→23:07)
[2022-10-27] MEDS: DIGOXIN 0.125 MG TABLET PO SCH (21:30)
[2022-10-27] MEDS: carvediloL 3.125 MG TABLET PO SCH (21:31)
[2022-10-27] MEDS: RIVAROXABAN 20 MG TABLET PO SCH (21:31)
[2022-10-27] MEDS: inSUlin ASPART 1 UNIT/0.01 ML (PER UNIT) SC SCH (21:44)
[2022-10-27 22:07] LABS: CALCIUM 8.1 MG/DL (8.5-10.1); CREATININE SERUM 0.59 MG/DL (0.60-1.30); MAGNESIUM 1.8 MG/DL (1.6-2.4); POTASSIUM 3.8 MMOL/L (3.6-5.0)
[2022-10-27] MEDS: POTASSIUM CL 10MEQ/50ML IVPB 50 ML IV SCH ×2 (23:10→23:11)
[2022-10-28 04:52] LABS: BASOPHILS % (AUTO) 0 % (0-10); EOSINOPHILS % (AUTO) 0 % (0-10); HEMATOCRIT 44 % (40-54); HEMOGLOBIN 15.2 g/dL (13.3-17.7); LYMPHOCYTES # (AUTO) 1.2 10^3/uL (1.0-4.0); LYMPHOCYTES % (AUTO) 10 % (12-44); MEAN CORPUSCULAR HEMOGLOBIN 32 pg (25-34); MEAN CORPUSCULAR HGB CONC 34 g/dL (32-36); MEAN CORPUSCULAR VOLUME 93 fL (80-99); MONOCYTES # (AUTO) 0.7 10^3/uL (0.0-1.0); MONOCYTES % (AUTO) 6 % (0-12); NEUTROPHILS # (AUTO) 10.6 10^3/uL (1.8-7.8); NEUTROPHILS % (AUTO) 84 % (42-75); PLATELET COUNT 170 10^3/uL (130-400); WHITE BLOOD COUNT 12.6 10^3/uL (4.3-11.0)
[2022-10-28 05:13] LABS: TOTAL PROTEIN 5.3 GM/DL (6.4-8.2)
[2022-10-28 05:14] LABS: BILIRUBIN,TOTAL 1.3 MG/DL (0.1-1.0)
[2022-10-28 05:16] LABS: CREATININE SERUM 0.62 MG/DL (0.60-1.30); PHOSPHORUS 1.8 MG/DL (2.3-4.7)
[2022-10-28 05:19] LABS: MAGNESIUM 1.8 MG/DL (1.6-2.4)
[2022-10-28] MEDS: POTASSIUM CHLORIDE 20 MEQ TABLET PO SCH (06:08)
[2022-10-28] MEDS: MAGNESIUM 1 GM/100 ML IVPB 100 ML IV SCH (06:08)
[2022-10-28] MEDS: inSUlin ASPART 1 UNIT/0.01 ML (PER UNIT) SC SCH ×4 (06:08→21:08)
[2022-10-28] MEDS: POTASSIUM CL 10MEQ/50ML IVPB 50 ML IV SCH (06:08)
--- NOTE | 2022-10-28 06:24 | Progress Note - Hospitalist ---
Subjective HPI/CC On Admission Date Seen by Provider: Oct 28, 2022 Time Seen by Provider: 11:00 Chief complaint: Severe constipation requiring NG tube placement for GoLytely and soapsuds enema HPI: This is a 67-year-old male clinic patient of [facility] who was just discharged last week for atrial fibrillation and congestive heart failure placed on a LifeVest who has a history of constipation who presented to the ER with such severe constipation and vomiting and hematemesis he was in need of NG tube placement with GoLytely placement and soapsuds enemas. Anticoagulation was held and that he had been emesis but that has subsided. Subjective/Events-last exam Patient required ICU transfer and placed on Cardizem drip due to A-fib with RVR Started Lovenox but will initiate regular home meds now which include an oral anticoagulation since we will discontinue NG tube since stool load on KUB is much improved No pain is reported No falls Keep in ICU due to variable heart rate Review of Systems General: Fatigue Gastrointestinal: Constipation Objective Exam Vital Signs Vital Signs Date Time Temp Pulse Resp B/P (MAP) Pulse Ox O2 Delivery O2 Flow Rate FiO2 10/28/22 14:00 116 16 139/81 (106) 97 Room Air 10/28/22 12:00 36.4 10/27/22 07:21 0.00 10/26/22 22:58 21 Capillary Refill : General Appearance: No Apparent Distress, WD/WN, Chronically ill Respiratory: Lungs Clear, Normal Breath Sounds Cardiovascular: Regular Rate, Rhythm, Irregularly Irregular Neurologic/Psychiatric: Alert, Oriented x3, No Motor/Sensory Deficits, Normal Mood/Affect Results/Procedures Lab Laboratory Tests 10/27/22 19:22 10/28/22 04:34 Patient resulted labs reviewed. Assessment/Plan Assessment and Plan Assess & Plan/Chief Complaint Assessment: Severe constipation improved after NG tube placement and GoLytely administration and soapsuds enemas Nausea and vomiting and hematemesis now resolved after NG tube Atrial fibrillation with RVR requiring ICU transfer Cardizem drip Cardiomyopathy Plan: Stay in ICU due to variable heart rate Oral anticoagulation Home meds NG tube discontinuation Clinical Quality Measures DVT/VTE Risk/Contraindication: Contraindications-Pharm: Other *list below* Other: hematemesis MUSA CLARK DO Oct 28, 2022 06:24
[2022-10-28] MEDS ORDERED: carvediloL 3.125 MG TABLET PO SCH (08:00)
[2022-10-28] MEDS ORDERED: DIGOXIN 0.125 MG TABLET PO SCH (09:00)
--- NOTE | 2022-10-28 09:17 | Diagnostic Imaging Report ---
Indication: Constipation. Compared with radiograph 10/26/2022. Findings: There has been a substantial reduction in colonic fecal loading. No longer is it pathologically elevated. No significant small bowel dilatation. No suspect calcifications. The lung bases clear. No bowel obstruction. Impression: Marked reduction in fecal load. No acute finding or adverse change at followup. Dictated by: Dictated on workstation # [id number]
--- NOTE | 2022-10-28 09:28 | Diagnostic Imaging Report ---
INDICATION: CHF, constipation. Patient has life vest on. Compared 10/16/2022. FINDINGS: The heart size decreased. Vascular congestion essentially resolved. Pulmonary edema resolved. Pleural fluid resolved. No pneumothorax. IMPRESSION: Clear chest at follow-up. No adverse development. Dictated by: Dictated on workstation # [id number]
[2022-10-28] MEDS: NS IV 1000 ML 1,000 ML IV SCH (09:33)
[2022-10-28] MEDS: DOCUSATE SODIUM 100 MG CAPSULE PO SCH ×2 (09:33→20:26)
[2022-10-28] MEDS: SENNOSIDES 8.6 MG TABLET PO SCH ×2 (09:34→20:26)
[2022-10-28] MEDS: DIGOXIN 0.125 MG TABLET PO SCH (09:34)
[2022-10-28] MEDS: carvediloL 3.125 MG TABLET PO SCH ×2 (09:34→17:48)
[2022-10-28] MEDS: ASPIRIN 81 MG CHEWABLE TABLET PO SCH (09:34)
--- NOTE | 2022-10-28 12:12 | Tele-ICU Progress Note ---
Subjective Date Seen by a Provider: Oct 28, 2022 Time Seen by a Provider: 12:12 Subjective/Events-last exam (Tele-ICU Physician , Progress Note ) Service provided via interactive audio and video telecommunications E-CARE system to a patient admitted to ICU bed in [facility]. Patient is seen today due to persistent need of ICU care Available chart/ vitals / labs / Images reviewed Video assessment done using teleICU camera, rest of exam as per RN Discussed with RN Events overnight : Afebrile hemodynamically stable Respiratory - ra I/O = Drips: NS 60 - on hold Pressors- no Hospital course: 10/26 for severe constipation requiring inpatient managemen, NGT placed with GoLytely dripping and enemas 10/27- transferred to ICU for RVR. 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 - reported coffee ground emesis? , ns in place - monitor - on xarelto - monitor - non-ICM - ECHO 12/12/21 - EF 25% -moderate MR -Life-vest in place CAD -( h/o PCI - COPD -as per records - CT in outpatient settings with emphysema - on ra ETOH use h/o -monitor Lines : periph , (Central Line Necessity Reviewed) Noe: void OG: Nutrition: NPO Analgesia: Anxiety/ delirium VTE Prophylaxis: xarelto Stress Ulcer Prophylaxis: na Plans in collaboration with bedside consultants and IM MDs. Discussed with RN to reach out if any questions or concerns Case and care daily discussed on multidisciplinary rounds ( RN, PharmD, Social Group Worker , Respiratory Therapy, project crew worker ) A total of 20 minutes of critical care time was devoted to this patient today, required to treat and/or prevent further deterioration of critical care condition ( as above ) . I am remotely monitoring this patient from another state. I am unable to do the bedside exam, and history/physical and pertinent information is taken from other notes in the computer and bedside staff. Sepsis Event Evaluation Height, Weight, BMI Height: '" Weight: lbs. oz. kg; 22.33 BMI Method: Exam Exam Patient acknowledged, consented, and participated in this virtual visit which was conducted using real time audio/video Vital Signs Date Time Temp Pulse Resp B/P (MAP) Pulse Ox O2 Delivery O2 Flow Rate FiO2 10/28/22 12:00 68 14 112/85 (94) 95 Room Air 10/28/22 12:00 36.4 10/28/22 11:00 100 13 113/85 (100) 97 Room Air 10/28/22 10:00 87 11 141/85 (95) 92 Room Air 10/28/22 09:00 100 14 126/92 (103) 96 Room Air 10/28/22 08:30 Room Air 10/28/22 08:00 94 13 109/74 (83) 94 Room Air 10/28/22 07:42 36.1 10/28/22 07:00 103 10/28/22 07:00 89 13 108/89 (101) 95 Room Air 10/28/22 06:00 81 16 122/74 (90) 93 Room Air 10/28/22 05:00 90 11 111/70 (84) 96 Room Air 10/28/22 04:37 Room Air 10/28/22 04:00 87 21 116/85 (95) 96 Room Air 10/28/22 03:00 99 14 121/90 (100) 95 Room Air 10/28/22 02:00 114 14 117/85 (96) 94 Room Air 10/28/22 01:00 95 16 125/84 (98) 96 Room Air 10/28/22 01:00 106 10/28/22 00:00 125 14 99/91 (94) 95 Room Air 10/27/22 23:36 Room Air 10/27/22 23:00 117 15 134/83 (100) 95 Room Air 10/27/22 21:45 112 16 133/82 (99) 96 Room Air 10/27/22 21:15 126 16 173/60 (97) 97 Room Air 10/27/22 20:45 105 21 133/101 (112) 97 Room Air 10/27/22 20:30 154 14 157/143 (148) 98 Room Air 10/27/22 20:15 116 17 114/101 (105) 98 Room Air 10/27/22 20:15 Room Air 10/27/22 20:00 129 17 165/66 (99) 97 Room Air 10/27/22 19:42 36.5 72 18 134/81 (98) 96 Room Air 10/27/22 19:00 126 8/25/23 15:59 36.5 85 20 149/73 (98) 99 Room Air 10/27/22 12:28 99 I & O 10/28/22 07:00 Intake Total 885 ml Balance 885 ml Height & Weight Height: '" Weight: lbs. oz. kg; 22.33 BMI Method: General Appearance: No Apparent Distress, Chronically ill, Thin Respiratory: Lungs Clear, Normal Breath Sounds Cardiovascular: Regular Rate, Rhythm Peripheral Pulses: 2+ Dorsalis Pedis (R), 2+ Left Dors-Pedis (L), 2+ Radial Pulses (R), 2+ Radial Pulses (L) Gastrointestinal: soft, abnormal bowel sounds (hyperactive in RUQ and LUQ); No distended, No guarding, No rebound; tenderness (all 4 quadrants); No mass, No hepatomegaly, No spleenomegaly Neurologic/Psychiatric: Alert, Oriented x3, No Motor/Sensory Deficits Results Lab Laboratory Tests 10/26/22 18:10 10/27/22 05:30 10/27/22 19:22 10/28/22 04:34 Assessment/Plan Assessment/Plan 1 JOSE CUMMINS MD Oct 28, 2022 12:12
[2022-10-28] MEDS: LACTULOSE SYRUP 10GM/15ML 30ML UDC PO SCH ×3 (12:26→20:27)
[2022-10-28] MEDS: SENNA W/DOCUSATE TABLET PO SCH ×2 (12:26→20:26)
--- NOTE | 2022-10-28 13:07 | Consultation-Cardiology ---
HPI-Cardiology Cardiology Consultation: Date of Consultation 10/28/22 Date of Admission Attending Physician [place] Admitting Physician Admitting Physician: Shellie Wakefield DO Attending Physician: Shellie Wakefield DO Consulting Physician Nikita SCOTT MD HPI: Time Seen by a Provider: 11:00 Chief Complaint: Atrial fibrillation with RVR This is a 67-year-old gentleman who presents with abdominal pain, nausea, vomiting and constipation for the last 11 days. He was recently in the hospital for atrial fibrillation with RVR and acute on chronic systolic congestive heart failure. Due to dilated cardiomyopathy he is awaiting a LifeVest. He has not been on oral anticoagulation. Review of Systems-Cardiology Review of Systems Constitutional: no symptoms reported Eyes: no symptoms reported Ears/Nose/Throat: no symptoms reported Respiratory: no symptoms reported Cardiovascular: palpitations Gastrointestinal: abdominal pain, nausea/vomiting/diarrhea TUJ-Rjiphy-Pqqges Hx Patient Social History Marrital Status: single Employed/Student: retired Smoking Status: Former Smoker Alcohol Use?: Yes (3-4 nights a week he has 3-4 rum and vodka drinks. He has been doing this his entire life.) Substance type: Marijuana Pt feels they are or have been: No Immunizations Up To Date Tetanus Booster (TDap): Unknown Past Medical History PMH As described under Assessment. Family Medical History Family Medical History: He reports that both his father and mother had myocardial infarction's but in their 60s. He has an older brother who has coronary stents. Family History: Cardiovascular disease G8 BROTHER, Onset:50's - 60 (heart transplant) G8 SISTER, Onset:40's - 50 (A. fib) FH: cirrhosis 19 FATHER, Onset:50's - 60 (due to drinking, at age 59) FH: colon cancer 19 MOTHER, Onset:50's - 60 ( at age 59) Allergies and Home Medications Allergies Coded Allergies: No Known Allergies (Verified Allergy, Unknown, 10/27/22) Patient Home Medication List Home Medication List Reviewed: Yes Aspirin (Aspirin) 81 Mg Tab.chew, 81 MG PO DAILY, (Reported) Entered as Reported by: CRISTINA CANTU on 10/27/22 4920 Last Action: Continued Carvedilol (Carvedilol) 3.125 Mg Tablet, 3.125 MG PO BID WITH MEALS, (Reported) Entered as Reported by: CRISTINA CANTU on 10/27/221407 Last Action: Continued Digoxin (Digoxin) 125 Mcg (0.125 Mg) Tablet, 125 MCG PO DAILY, (Reported) Entered as Reported by: CRISTINA CANTU on 10/27/221407 Last Action: Continued Diltiazem HCl (Diltiazem 24Hr ER) 120 Mg Cap.er.24h, 120 MG PO 1800, (Reported) Entered as Reported by: CRISTINA CANTU on 10/27/221407 Last Action: Continued Empagliflozin (Jardiance) 10 Mg Tablet, 10 MG PO 1800, (Reported) Entered as Reported by: CRISTINA CANTU on 10/27/221407 Last Action: Held Furosemide (Furosemide) 40 Mg Tablet, 40 MG PO DAILY, (Reported) Entered as Reported by: CRISTINA CANTU on 10/27/221407 Last Action: Held Krill/Om-3/Dha/Epa/Phospho/Ast (Krill Oil 500 mg Softgel) 500MG-86MG Capsule, 2 EACH PO BID, (Reported) Entered as Reported by: CRISTINA CANTU on 10/16/22914 Last Action: Held Lisinopril (Lisinopril) 5 Mg Tablet, 5 MG PO DAILY, (Reported) Entered as Reported by: CRISTINA CANTU on 10/27/221407 Last Action: Held Rivaroxaban (Xarelto Tablet) 20 Mg Tablet, 20 MG PO 1800, (Reported) Entered as Reported by: CRISTINA CANTU on 10/16/22914 Last Action: Continued Spironolactone (Spironolactone) 25 Mg Tablet, 25 MG PO DAILY, (Reported) Entered as Reported by: CRISTINA CANTU on 10/27/221407 Last Action: Held [Oregaresp] CAP, 2 EA PO BID, (Reported) Entered as Reported by: CRISTINA CANTU on 10/16/22916 Last Action: Held Discontinued Medications Aspirin (Children's Aspirin) 81 Mg Tab.chew, 81 MG PO DAILY Discontinued Reason: Duplicate Order Prescribed by: EJ ALDRIDGE on 10/19/22 115 Last Action: Discontinued Carvedilol (Carvedilol) 3.125 Mg Tablet, 3.125 MG PO BID Discontinued Reason: Duplicate Order Prescribed by: EJ ALDRIDGE on 10/19/221152 Last Action: Discontinued Digoxin (Digox) 125 Mcg (0.125 Mg) Tablet, 0.125 MG PO DAILY Discontinued Reason: Duplicate Order Prescribed by: EJ ALDRIDGE on 10/19/221152 Last Action: Discontinued Diltiazem HCl (Diltiazem 24Hr ER) 120 Mg Cap.er.24h, 120 MG PO DAILY Discontinued Reason: Duplicate Order Prescribed by: EJ ALDRIDGE on 10/19/221152 Last Action: Discontinued Empagliflozin (Jardiance) 10 Mg Tablet, 10 MG PO DAILY Discontinued Reason: Duplicate Order Prescribed by: EJ ALDRIDGE on 10/19/221152 Last Action: Discontinued Furosemide (Furosemide) 40 Mg Tablet, 40 MG PO DAILY Discontinued Reason: Duplicate Order Prescribed by: EJ ALDRIDGE on 10/19/221152 Last Action: Discontinued Lisinopril (Lisinopril) 5 Mg Tablet, 5 MG PO DAILY Discontinued Reason: Duplicate Order Prescribed by: EJ ALDRIDGE on 10/19/221152 Last Action: Discontinued Spironolactone (Spironolactone) 25 Mg Tablet, 25 MG PO DAILY Discontinued Reason: Duplicate Order Prescribed by: EJ ALDRIDGE on 10/19/221152 Last Action: Discontinued Exam Vital Signs Vital Signs Date Time Temp Pulse Resp B/P (MAP) Pulse Ox O2 Delivery O2 Flow Rate FiO2 10/28/22 20:00 91 10 99/81 (87) 97 Room Air 10/28/22 19:40 36.4 10/27/22 07:21 0.00 10/26/22 22:58 21 Physical Exam Constitutional: No respiratory distress. Chest: Bilateral breath sounds. CVS: Irregularly irregular rhythm. Labs Laboratory Tests Test 10/28/22 04:34 10/28/22 11:27 10/28/22 15:35 10/28/22 20:40 Range/Units White Blood Count 12.6 H 4.3-11.0 10^3/uL Red Blood Count 4.77 4.30-5.52 10^6/uL Hemoglobin 15.2 13.3-17.7 g/dL Hematocrit 44 40-54 % Mean Corpuscular Volume 93 80-99 fL Mean Corpuscular Hemoglobin 32 25-34 pg Mean Corpuscular Hemoglobin Concent 34 32-36 g/dL Red Cell Distribution Width 13.5 10.0-14.5 % Platelet Count 170 130-400 10^3/uL Mean Platelet Volume 11.0 9.0-12.2 fL Immature Granulocyte % (Auto) 1 % Neutrophils (%) (Auto) 84 H 42-75 % Lymphocytes (%) (Auto) 10 L 12-44 % Monocytes (%) (Auto) 6 0-12 % Eosinophils (%) (Auto) 0 0-10 % Basophils (%) (Auto) 0 0-10 % Neutrophils # (Auto) 10.6 H 1.8-7.8 10^3/uL Lymphocytes # (Auto) 1.2 1.0-4.0 10^3/uL Monocytes # (Auto) 0.7 0.0-1.0 10^3/uL Eosinophils # (Auto) 0.0 0.0-0.3 10^3/uL Basophils # (Auto) 0.0 0.0-0.1 10^3/uL Immature Granulocyte # (Auto) 0.1 0.0-0.1 10^3/uL Sodium Level 138 135-145 MMOL/L Potassium Level 4.0 3.6-5.0 MMOL/L Chloride Level 105 98-107 MMOL/L Carbon Dioxide Level 23 21-32 MMOL/L Anion Gap 10 5-14 MMOL/L Blood Urea Nitrogen 19 H 7-18 MG/DL Creatinine 0.62 0.60-1.30 MG/DL Estimat Glomerular Filtration Rate 105 BUN/Creatinine Ratio 31 Glucose Level 100 70-105 MG/DL Calcium Level 8.0 L 8.5-10.1 MG/DL Corrected Calcium 8.8 8.5-10.1 MG/DL Phosphorus Level 1.8 L 2.3-4.7 MG/DL Magnesium Level 1.8 1.6-2.4 MG/DL Total Bilirubin 1.3 H 0.1-1.0 MG/DL Aspartate Amino Transf (AST/SGOT) 24 5-34 U/L Alanine Aminotransferase (ALT/SGPT) 26 0-55 U/L Alkaline Phosphatase 48 40-136 U/L Total Protein 5.3 L 6.4-8.2 GM/DL Albumin 3.0 L 3.2-4.5 GM/DL Glucometer 145 H 151 H 109 70-110 MG/DL ECG Impression ECG Initial ECG Impression: Atrial Fibrillation w/RVR A/P-Cardiology Assessment/Admission Diagnosis Severe constipation, Dilated cardiomyopathy, Atrial fibrillation with RVR Plan Dilated cardiomyopathy, LifeVest. Continue goal-directed medical therapy for dilated cardiomyopathy and acute on chronic systolic congestive heart failure. Atrial fibrillation with RVR, Cardizem infusion. Gradually taper off Cardizem and change to p.o. If patient is not tolerating oral anticoagulation. Keep on Lovenox. Nikita SCOTT MD Oct 28, 2022 13:07
[2022-10-28] MEDS: RIVAROXABAN 20 MG TABLET PO SCH (17:48)
[2022-10-28] MEDS ORDERED: RIVAROXABAN 20 MG TABLET PO SCH (18:00)
[2022-10-28] MEDS ORDERED: dilTIAZem ER 120 MG CAPSULE PO SCH (18:00)
[2022-10-29 04:17] LABS: BASOPHILS # (AUTO) 0.1 10^3/uL (0.0-0.1); BASOPHILS % (AUTO) 1 % (0-10); EOSINOPHILS # (AUTO) 0.1 10^3/uL (0.0-0.3); EOSINOPHILS % (AUTO) 1 % (0-10); HEMATOCRIT 42 % (40-54); LYMPHOCYTES # (AUTO) 1.7 10^3/uL (1.0-4.0); LYMPHOCYTES % (AUTO) 18 % (12-44); MEAN CORPUSCULAR HEMOGLOBIN 31 pg (25-34); MEAN CORPUSCULAR HGB CONC 34 g/dL (32-36); MEAN CORPUSCULAR VOLUME 93 fL (80-99); MEAN PLATELET VOLUME 10.7 fL (9.0-12.2); MONOCYTES # (AUTO) 0.5 10^3/uL (0.0-1.0); MONOCYTES % (AUTO) 5 % (0-12); NEUTROPHILS # (AUTO) 6.7 10^3/uL (1.8-7.8); NEUTROPHILS % (AUTO) 74 % (42-75); PLATELET COUNT 159 10^3/uL (130-400); WHITE BLOOD COUNT 9.1 10^3/uL (4.3-11.0)
[2022-10-29 04:37] LABS: ALBUMIN 2.7 GM/DL (3.2-4.5); POTASSIUM 3.5 MMOL/L (3.6-5.0)
[2022-10-29 04:38] LABS: CALCIUM 7.9 MG/DL (8.5-10.1)
[2022-10-29 04:39] LABS: TOTAL PROTEIN 4.9 GM/DL (6.4-8.2)
[2022-10-29 04:41] LABS: BILIRUBIN,TOTAL 0.9 MG/DL (0.1-1.0)
[2022-10-29 04:43] LABS: CREATININE SERUM 0.53 MG/DL (0.60-1.30)
[2022-10-29 04:46] LABS: MAGNESIUM 1.6 MG/DL (1.6-2.4)
[2022-10-29] MEDS: POTASSIUM CHLORIDE 20 MEQ TABLET PO SCH (05:04)
[2022-10-29] MEDS: MAGNESIUM 1 GM/100 ML IVPB 100 ML IV SCH ×4 (05:04→08:01)
[2022-10-29] MEDS: POTASSIUM CL 10MEQ/50ML IVPB 50 ML IV SCH (05:04)
[2022-10-29] MEDS: inSUlin ASPART 1 UNIT/0.01 ML (PER UNIT) SC SCH ×2 (05:05→10:55)
[2022-10-29] MEDS ORDERED: MAGNESIUM 1 GM/100 ML IVPB 400 ML IV ONE (05:13)
--- NOTE | 2022-10-29 06:27 | Progress Note - Hospitalist ---
Subjective HPI/CC On Admission Date Seen by Provider: Oct 29, 2022 Time Seen by Provider: 11:00 Chief complaint: Severe constipation requiring NG tube placement for GoLytely and soapsuds enema HPI: This is a 67-year-old male clinic patient of [facility] who was just discharged last week for atrial fibrillation and congestive heart failure placed on a LifeVest who has a history of constipation who presented to the ER with such severe constipation and vomiting and hematemesis he was in need of NG tube placement with GoLytely placement and soapsuds enemas. Anticoagulation was held and that he had been emesis but that has subsided. Objective Exam Vital Signs Vital Signs Date Time Temp Pulse Resp B/P (MAP) Pulse Ox O2 Delivery O2 Flow Rate FiO2 10/29/22 10:00 55 13 96 Room Air 10/29/22 09:00 10/29/22 08:00 36.2 10/27/22 07:21 0.00 10/26/22 22:58 21 Capillary Refill : Results/Procedures Lab Laboratory Tests 10/29/22 03:52 Patient resulted labs reviewed. Assessment/Plan Assessment and Plan Assess & Plan/Chief Complaint Assessment: Severe constipation improved after NG tube placement and GoLytely administration and soapsuds enemas Nausea and vomiting and hematemesis now resolved after NG tube Atrial fibrillation with RVR requiring ICU transfer Cardizem drip Cardiomyopathy Plan: Stay in ICU due to variable heart rate Oral anticoagulation Home meds NG tube discontinuation Clinical Quality Measures DVT/VTE Risk/Contraindication: Contraindications-Pharm: Other *list below* Other: hematemesis MUSA CLARK DO Oct 29, 2022 06:27
[2022-10-29] MEDS ORDERED: POTASSIUM CHLORIDE 20 MEQ TABLET PO ONE (08:00)
--- NOTE | 2022-10-29 08:00 | Diagnostic Imaging Report ---
Portable supine abdomen at 0718 hours. Indication: Abdominal pain 2 supine views were obtained. As noted on the prior exam of 10/28/2022 there is a fair amount of gas within the colon and some gas in the small bowel. This appearance is nonspecific. There is no sign of a bowel obstruction. There is a moderate amount of fecal material in the descending colon. There is no mass or organomegaly. IMPRESSION: The bowel gas pattern is nonspecific but seems similar to the prior exam. Overall, there has been no significant change since the prior study. Dictated by: Dictated on workstation # [id number]
[2022-10-29] MEDS: SENNOSIDES 8.6 MG TABLET PO SCH (09:40)
[2022-10-29] MEDS: ASPIRIN 81 MG CHEWABLE TABLET PO SCH (09:40)
[2022-10-29] MEDS: DOCUSATE SODIUM 100 MG CAPSULE PO SCH (09:40)
[2022-10-29] MEDS: DIGOXIN 0.125 MG TABLET PO SCH (09:40)
[2022-10-29] MEDS: carvediloL 3.125 MG TABLET PO SCH (09:40)
[2022-10-29] MEDS: LACTULOSE SYRUP 10GM/15ML 30ML UDC PO SCH (09:41)
[2022-10-29] MEDS: SENNA W/DOCUSATE TABLET PO SCH (09:44)
[2022-10-29] MEDS ORDERED: LACT20SO2 PO (10:34)
[2022-10-29] MEDS ORDERED: SENN8.6T17 PO (10:34)
--- NOTE | 2022-10-29 10:35 | Discharge Summary ---
Discharge Summary Hospital Course Was the Problem List Reviewed?: Yes Problems/Dx: (1) Constipation (2) Congestive heart failure Status: Acute Qualifiers: Qualified Codes: I50.9 - Heart failure, unspecified (3) Atrial fibrillation with RVR Status: Resolved Hospital Course Date of Admission: Oct 26, 2022 at 21:51 Admission Diagnosis : [facility] Phys[facility] [place] Date of Discharge: 10/29/22 Discharge Diagnosis: [ ] Hospital Course: Patient had a lengthy hospital course after he was admitted for severe constipation with CT scan unrevealing his entire bowel packed with stool. He was started on soapsuds enema and NG tube placed and administered GoLytely until bowels were nearly completely evacuated. He did have an episode of A-fib with RVR placed on Lovenox for anticoagulation and Cardizem drip transition by cardiology. He was doing very well and discharged. Labs and Pending Lab Test: Laboratory Tests 10/28/22 11:27: Glucometer 145H 10/28/22 15:35: Glucometer 151H 10/28/22 20:40: Glucometer 109 10/29/22 03:52: White Blood Count 9.1, Red Blood Count 4.46, Hemoglobin 14.0, Hematocrit 42, Mean Corpuscular Volume 93, Mean Corpuscular Hemoglobin 31, Mean Corpuscular Hemoglobin Concent 34, Red Cell Distribution Width 13.2, Platelet Count 159, Mean Platelet Volume 10.7, Immature Granulocyte % (Auto) 0, Neutrophils (%) (Auto) 74, Lymphocytes (%) (Auto) 18, Monocytes (%) (Auto) 5, Eosinophils (%) (Auto) 1, Basophils (%) (Auto) 1, Neutrophils # (Auto) 6.7, Lymphocytes # (Auto) 1.7, Monocytes # (Auto) 0.5, Eosinophils # (Auto) 0.1, Basophils # (Auto) 0.1, Immature Granulocyte # (Auto) 0.0, Sodium Level 136, Potassium Level 3.5L, Chloride Level 107, Carbon Dioxide Level 23, Anion Gap 6, Blood Urea Nitrogen 11, Creatinine 0.53L, Estimat Glomerular Filtration Rate 110, BUN/Creatinine Ratio 21, Glucose Level 98, Calcium Level 7.9L, Corrected Calcium 8.9, Phosphorus Level 2.0L, Magnesium Level 1.6, Total Bilirubin 0.9, Aspartate Amino Transf (AST/SGOT) 28, Alanine Aminotransferase (ALT/SGPT) 26, Alkaline Phosphatase 45, Total Protein 4.9L, Albumin 2.7L Home Meds Active Senna Laxative (Sennosides) 8.6 Mg Tablet 8.6 Mg PO BID Lactulose 20 Gram/30 Ml Solution 20 Gm PO TID Reported Jardiance (Empagliflozin) 10 Mg Tablet 10 Mg PO 1800 Carvedilol 3.125 Mg Tablet 3.125 Mg PO BID WITH MEALS Diltiazem 24Hr ER (Diltiazem HCl) 120 Mg Cap.er.24h 120 Mg PO 1800 Furosemide 40 Mg Tablet 40 Mg PO DAILY Spironolactone 25 Mg Tablet 25 Mg PO DAILY Aspirin 81 Mg Tab.chew 81 Mg PO DAILY Lisinopril 5 Mg Tablet 5 Mg PO DAILY Digoxin 125 Mcg (0.125 Mg) Tablet 125 Mcg PO DAILY [Oregaresp] Cap 2 Ea PO BID Krill Oil 500 mg Softgel (Krill/Om-3/Dha/Epa/Phospho/Ast) 500MG-86MG Capsule 2 Each PO BID Xarelto Tablet (Rivaroxaban) 20 Mg Tablet 20 Mg PO 1800 Assessment/Pt Instructions PCP in 1 week Discharge Planning: <30 minutes discharge planning Discharge Instructions Discharge Diet: No Restrictions Discharge Physical Examination Vital Signs Vital Signs Date Time Temp Pulse Resp B/P (MAP) Pulse Ox O2 Delivery O2 Flow Rate FiO2 10/29/22 10:00 55 13 96 Room Air 10/29/22 09:00 10/29/22 08:00 36.2 10/27/22 07:21 0.00 10/26/22 22:58 21 General Appearance: No Apparent Distress, WD/WN, Chronically ill Allergies: Coded Allergies: No Known Allergies (Verified Allergy, Unknown, 10/27/22) Discharge Summary Date of Admission Oct 26, 2022 at 21:51 Date of Discharge Discharge Date: Oct 29, 2022 Admission Diagnosis Severe constipation Nausea and vomiting and hematemesis Atrial fibrillation Cardiomyopathy Plan: Maintain LifeVest NG tube with GoLytely supportive care Discharge Diagnosis Assessment: Severe constipation improved after NG tube placement and GoLytely administration and soapsuds enemas Nausea and vomiting and hematemesis now resolved after NG tube Atrial fibrillation with RVR requiring ICU transfer Cardizem drip Cardiomyopathy Plan: Stay in ICU due to variable heart rate Oral anticoagulation Home meds NG tube discontinuation Clinical Quality Measures DVT/VTE Risk/Contraindication: Contraindications-Pharm: Other *list below* Other: hematemesis MUSA CLARK DO Oct 29, 2022 10:35
[2022-10-29] MEDS ORDERED: LACTULOSE SYRUP 10GM/15ML 30ML UDC PO NR (11:00)
== END 2022-10-29 10:32 | disposition home or self-care (01) ==
LOC: EDUNIT# 17:49 → ER 17:50 → 4TH 21:51 → UNDOADMOB 21:51 → 4TH 22:04 → ICU 10-27 20:15 → 4TH 10-27 20:15 → UNDODISOB 10-29 10:32
PROVIDERS: ADMIT Internal Medicine; ATTEND Internal Medicine
DX: K59.00 Constipation, unspecified (principal); K92.0 Hematemesis; I50.9 Heart failure, unspecified; I48.91 Unspecified atrial fibrillation; J44.9 Chronic obstructive pulmonary disease, unspecified; I42.0 Dilated cardiomyopathy; E11.9 Type 2 diabetes mellitus without complications; F10.90 Alcohol use, unspecified, uncomplicated; F12.90 Cannabis use, unspecified, uncomplicated; Z79.84 Long term (current) use of oral hypoglycemic drugs; Z28.310 Unvaccinated for COVID-19; Z79.01 Long term (current) use of anticoagulants; Z79.899 Other long term (current) drug therapy
CPT/HCPCS: 36415; 71045; 74018; 74177; 80048; 80053; 82947; 83735; 84100; 85007; 85025; 85027; 85610; 85730; 93005; 94760; 96366; 96375; 96376; G0378